=== PATIENT | male | born 1950 | race Caucasian/White ===

== ENCOUNTER 2016-11-22 18:58 | Inpatient (IN) | payer OTHER ==
--- NOTE | 2016-11-22 19:19 | CPEKG ---
Heart Rate: 114 RR Interval: 526 P-R Interval: 144 QRSD Interval: 108 QT Interval: 328 QTC Interval: 452 P Java: 83 QRS Java: 109 T Wave Java: -59 EKG Severity - ABNORMAL ECG - EKG Impression: SINUS TACHYCARDIA EKG Impression: LEFT ATRIAL ABNORMALITY EKG Impression: RVH WITH SECONDARY REPOLARIZATION ABNORMALITY Electronically Signed By: Jonas Comer 23-Nov-2016 09:04:21
--- NOTE | 2016-11-22 19:20 | EDPHY ---
H & P Stated Complaint: SOB, hypoxia, sent from Dr office Time Seen by Provider: 11/22/16 19:10 HPI/ROS: CHIEF COMPLAINT: respiratory distress HISTORY OF PRESENT ILLNESS: 66-year-old male presents emergency department sent from his doctor's office with room air oxygen saturations of 67%. Patient reports a 10 day history of nasal congestion, sore throat, cough and fevers. Patient has a history of COPD, diabetes, hypertension, coronary artery disease and pulmonary hypertension. Today he had a nurse come to his house for a yearly [facility] visit, she insisted he go see his primary care doctor, he went to his doctor who then sent him to the emergency department. Patient denies chest pain, he reports shortness of breath. He denies any sick contacts , he denies abdominal pain or diarrhea. No urinary symptoms. REVIEW OF SYSTEMS: A comprehensive 10 point review of systems is otherwise negative aside from elements mentioned in the history of present illness. Source: Patient, Family Exam Limitations: No limitations - Medical/Surgical History Hx Asthma: No Hx Chronic Respiratory Disease: Yes Hx Diabetes: Yes Hx Cardiac Disease: No Hx Renal Disease: No Hx Cirrhosis: No Hx Alcoholism: No Hx HIV/AIDS: No Hx Splenectomy or Spleen Trauma: No Other PMH: COPD, CRD, HTN, DM, polycythemia, Vit D deficiency - Social History Smoking Status: Former smoker - Physical Exam Exam: Physical Exam Gen: Alert and Oriented, in respiratory distress, tick neck, vital signs reviewed, temperature is 38.3degrees and oxygen saturations on room air 67% HEENT: PERRL, dry mucous membranes NECK: no meningismus CV: Tachycardic rate and regular rhythm PULM: Diminished throughout, increased work of breathing, tachypneic ABDOMEN: soft, non tender to palpation, BS present BACK: No CVA tenderness NEURO: Neurologically grossly intact EXTREMITIES: 2+ pitting edema bilateral lower extremities below the knee SKIN: no rash or break in skin on exposed skin PSYCH: answers questions appropriately. Constitutional: Initial Vital Signs Heart Rate 120 H 11/22/16 19:02 Respiratory Rate 25 H 11/22/16 19:02 Blood Pressure 129/78 H 11/22/16 19:02 O2 Delivery Mode Oxymask O2 (L/minute) 10 Allergies/Adverse Reactions: No Known Allergies Allergy (Unverified 11/22/16 19:02) Home Medications: Medication Instructions Recorded Furosemide [Lasix 20 MG (*)] 20 mg PO DAILY 11/30/15 Hydrochlorothiazide [HCTZ (*)] 25 mg PO DAILY 11/30/15 Ipratropium [Atrovent Hfa (*)] 2 puffs IH QID 11/30/15 Mometasone/Formoterol [Dulera 200 2 puffs IH BID 11/30/15 Mcg/5 Mcg Inhaler] Simvastatin [Zocor] 5 mg PO HS 11/30/15 amLODIPine BESYLATE [Norvasc 5 mg 5 mg PO DAILY 11/30/15 (*)] glipiZIDE [Glipizide] 10 mg PO BIDAC 11/30/15 metFORMIN HCL [Glucophage 500 mg 1,000 mg PO DAILY@18 11/30/15 (*)] Aspirin EC [Aspirin EC 325 mg (*)] 325 mg PO DAILY #0 tab 12/01/15 Prasugrel HCl [Effient 10mg (*)] 10 mg PO DAILY #30 tab 12/01/15 Medical Decision Making - Diagnostics Imaging: Imaging Impressions Chest X-Ray 11/22/16 19:26 Impression: 1. Possible CHF with interstitial pulmonary edema versus chronic progressive interstitial lung disease. ED Course/Re-evaluation: On arrival patient meets sepsis protocol with tachycardia, febrile, low oxygen saturation. IV established, labs obtained including blood cultures, lactate, influenza, EKG and chest x-ray. 1955-Pt declared severe sepsis with bilirubin 2.1. Fluid bolus and antibiotics have been ordered. Respiratory therapy called and will consider BiPAP for increased work of wearing on oxygen, saturations of 86% with simple face mask. Chest x-ray shows possible CHF with interstitial pulmonary edema versus chronic progressive interstitial lung disease. Awaiting BNP. My supervising physician Dr. Yu has seen and assessed this patient. 805pm- RT at bedside. Patient is on Vapotherm tolerating it well, saturations are 92%, he is on 30 L with FiO2 of 80%. 810pm-BNP 4600, normal troponin, 40 mg of Lasix has been ordered. Fluid bolus- discontinued, he received 200 mL of normal saline. Pt admitted to SDU. Patient with a normal lactate, normotensive, he does not have septic shock. Influenza is negative. Work of breathing improved on Vapotherm with RT at bedside. Will consider BiPAP or CPAP if patient does not continue to improve or if he is worse. - Data Points Laboratory Results: Laboratory Results 11/22/16 19:20 11/22/16 19:20 11/22/16 11/22/16 11/22/16 19:40 19:20 19:20 WBC RBC Hgb Hct MCV MCH MCHC RDW Plt Count MPV Neut % (Auto) Lymph % (Auto) [place] % (Auto) Eos % (Auto) Baso % (Auto) Nucleat RBC Rel Count Absolute Neuts (auto) Absolute Lymphs (auto) Absolute Monos (auto) Absolute Eos (auto) Absolute Basos (auto) Absolute Nucleated RBC Immature Gran % Immature Gran # PT INR APTT VBG Lactic Acid Sodium 138 mEq/L mEq/L (134-144) Potassium 4.1 mEq/L mEq/L (3.5-5.2) Chloride 97 mEq/L mEq/L (97-110) Carbon Dioxide 30 mEq/l mEq/l (22-31) Anion Gap 11 mEq/L mEq/L (8-16) BUN 20 mg/dL mg/dL (7-23) Creatinine 0.7 mg/dL mg/dL (0.7-1.3) Estimated GFR > 60 Glucose 140 mg/dL H mg/dL (70-100) Calcium 9.1 mg/dL mg/dL (8.5-10.4) Total Bilirubin 2.1 mg/dL H mg/dL (0.1-1.4) Conjugated Bilirubin 1.0 mg/dL H mg/dL (0.0-0.5) Unconjugated Bilirubin 1.1 mg/dL mg/dL (0.0-1.1) Troponin I 0.014 ng/mL ng/mL (0-0.034) NT-Pro-B Natriuret Pep 4620 pg/mL H pg/mL (0-125) Influenza Typ A,B (DFA) NEGATIVE FOR FLU (NEGATIVE) 11/22/16 11/22/16 11/22/16 19:20 19:20 19:20 WBC 15.87 10^3/uL H 10^3/uL (3.80-9.50) RBC 5.73 10^6/uL 10^6/uL (4.40-6.38) Hgb 16.0 g/dL g/dL (13.7-17.5) Hct 50.3 % % (40.0-51.0) MCV 87.8 fL fL (81.5-99.8) MCH 27.9 pg pg (27.9-34.1) MCHC 31.8 g/dL L g/dL (32.4-36.7) RDW 18.4 % H % (11.5-15.2) Plt Count 383 10^3/uL 10^3/uL (150-400) MPV 11.1 fL fL (8.7-11.7) Neut % (Auto) 88.4 % H % (39.3-74.2) Lymph % (Auto) 3.6 % L % (15.0-45.0) [place] % (Auto) 6.9 % % (4.5-13.0) Eos % (Auto) 0.3 % L % (0.6-7.6) Baso % (Auto) 0.4 % % (0.3-1.7) Nucleat RBC Rel Count 0.0 % % (0.0-0.2) Absolute Neuts (auto) 14.03 10^3/uL H 10^3/uL (1.70-6.50) Absolute Lymphs (auto) 0.57 10^3/uL L 10^3/uL (1.00-3.00) Absolute Monos (auto) 1.09 10^3/uL H 10^3/uL (0.30-0.80) Absolute Eos (auto) 0.05 10^3/uL 10^3/uL (0.03-0.40) Absolute Basos (auto) 0.06 10^3/uL 10^3/uL (0.02-0.10) Absolute Nucleated RBC 0.00 10^3/uL 10^3/uL (0-0.01) Immature Gran % 0.4 % % (0.0-1.1) Immature Gran # 0.07 10^3/uL 10^3/uL (0.00-0.10) PT 30.7 SEC H SEC (12.0-15.0) INR 2.90 H (0.83-1.16) APTT 31.2 SEC SEC (23.0-38.0) VBG Lactic Acid 1.5 mmol/L mmol/L (0.7-2.1) Sodium Potassium Chloride Carbon Dioxide Anion Gap BUN Creatinine Estimated GFR Glucose Calcium Total Bilirubin Conjugated Bilirubin Unconjugated Bilirubin Troponin I NT-Pro-B Natriuret Pep Influenza Typ A,B (DFA) Medications Given: Discontinued Medications Albuterol/Ipratropium (Duoneb) 3 ml IH EDNOW ONE Stop: 11/22/16 19:45 Last Admin: 11/22/16 19:58 Dose: 3 ml Dexamethasone (Decadron Injection) 10 mg IVP EDNOW ONE Stop: 11/22/16 19:52 Last Admin: 11/22/16 20:07 Dose: 10 mg Furosemide (Lasix Injection) 40 mg IVP EDNOW ONE Stop: 11/22/16 20:30 Last Admin: 11/22/16 20:45 Dose: 40 mg Ceftriaxone Sodium/Dextrose (Rocephin 1 Gm (Premix)) 50 mls @ 100 mls/hr IV EDNOW ONE PRN Reason: Protocol Stop: 11/22/16 20:18 Last Admin: 11/22/16 20:00 Dose: 50 mls Levofloxacin/Dextrose (Levaquin 750 Mg (Premix)) 150 mls @ 100 mls/hr IV EDNOW ONE PRN Reason: Protocol Stop: 11/22/16 21:18 Last Admin: 11/22/16 20:44 Dose: 150 mls Ibuprofen (Motrin) 800 mg PO EDNOW ONE Stop: 11/22/16 19:37 Last Admin: 11/22/16 19:35 Dose: 800 mg Departure - Departure Disposition: [facility] Inpatient Acute Clinical Impression: Severe sepsis, Chronic obstructive pulmonary disease with acute exacerbation Condition: Critical
[2016-11-22] MEDS ORDERED: IBUPROFEN 200 MG TAB PO ONE ×2 (19:30→19:36)
[2016-11-22 19:38] LABS: % IMMATURE GRANULYOCYTES 0.4 % (0.0-1.1); ABSOLUTE IMMATURE GRANULOCYTES 0.07 10^3/uL (0.00-0.10); ADD DIFF? NO; ADD MORPH? NO; ADD SCAN? NO; ATYPICAL LYMPHOCYTE FLAG 20 (0-99); FRAGMENT RBC FLAG 20 (0-99); HEMATOCRIT 50.3 % (40.0-51.0); LEFT SHIFT FLG 0 (0-99); LIPEMIA HEMOLYSIS FLAG 80 (0-99); MEAN CELL HEMOGLOBIN 27.9 pg (27.9-34.1); MEAN CELL HEMOGLOBIN CONCENTR. 31.8 g/dL (32.4-36.7); MEAN CELL VOLUME 87.8 fL (81.5-99.8); MEAN PLATELET VOLUME 11.1 fL (8.7-11.7); PLATELET CLUMPS FLAG 0 (0-99); PLATELET COUNT 383 10^3/uL (150-400); RED BLOOD CELL COUNT 5.73 10^6/uL (4.40-6.38); RED CELL DISTRIBUTION WIDTH 18.4 % (11.5-15.2)
[2016-11-22] MEDS ORDERED: IPRATROPIUM/ALBUTEROL 3 ML DEYVIAL IH ONE (19:44)
[2016-11-22] MEDS ORDERED: DEXAMETHASONE 10 MG/ML VIAL IVP ONE (19:51)
[2016-11-22 19:56] LABS: ANION GAP 11 mEq/L (8-16); BILIRUBIN,TOTAL 2.1 mg/dL (0.1-1.4); CALCIUM 9.1 mg/dL (8.5-10.4); CARBON DIOXIDE 30 mEq/l (22-31); CHLORIDE 97 mEq/L (97-110); CREATININE 0.7 mg/dL (0.7-1.3); GLOMERULAR FILTRATION RATE > 60; GLUCOSE 140 mg/dL (70-100); POTASSIUM 4.1 mEq/L (3.5-5.2); SODIUM 138 mEq/L (134-144)
[2016-11-22] MEDS ORDERED: SODIUM CHLORIDE IV ONE (19:57)
[2016-11-22 19:58] LABS: INR 2.9 (0.83-1.16); PROTIME(PATIENT) 30.7 SEC (12.0-15.0)
[2016-11-22 19:59] LABS: APTT 31.2 SEC (23.0-38.0)
[2016-11-22] MEDS ORDERED: NS 1,000 ML IV ONE (20:12)
[2016-11-22] MEDS ORDERED: FUROSEMIDE 40 MG/4 ML VIAL IVP ONE (20:29)
[2016-11-22 20:40] LABS: BILIRUBIN-UNCONJUGATED 1.1 mg/dL (0.0-1.1)
[2016-11-22] MEDS ORDERED: ACETAMINOPHEN 325 MG TAB PO PRN (22:45)
[2016-11-22] MEDS ORDERED: ALBUTEROL 3 ML DEYVIAL IH PRN (22:49)
[2016-11-22] MEDS ORDERED: D50W 25 GM/50 ML SYR IVP PRN (22:50)
--- NOTE | 2016-11-22 23:42 | PDGENHP ---
History and Physical - Chief Complaint shortness of breath, hypoxia - History of Present Illness Patient is a 66-year-old male with a history of COPD, chronic respiratory failure, severe pulmonary hypertension, CAD, diabetes who presents to the ED with complaint of cough and shortness of breath. Patient states symptoms started about 10 days ago with chest congestion, sore throat and cough. The cough progressed over the following days, productive of white sputum, occasionally associated with subjective chills. Denies any associated palpitations, chest pain, headache, dizziness, or any abdominal pain, nausea, vomiting or diarrhea. He was evaluated by his visiting nurse service on day of presentation, was found to be in moderate respiratory distress, so he was referred to his PMD office. At the office, patient was found to be significantly hypoxic (to the 60s on room air), so he was sent to the ED for further evaluation. On arrival to the ED patient was afebrile, tachycardic, tachypneic and hypoxic to 68% on 6L NC. Initial work up was concerning for possible severe sepsis, so patient was cultured and initiated on antibiotics and IVF bolus. Labs then revealed leukocytosis, significantly elevated BNP and CXR showed pulmonary edema. His respiratory status was stabilized with HiFlo nasal cannula and he was given IV lasix. He was then admitted to the hospitalist service for further management. History Information - Allergies/Home Medication List Allergies/Adverse Reactions: No Known Allergies Allergy (Unverified 11/22/16 19:02) Home Medications: Furosemide [Lasix 20 MG (*)] 20 mg PO DAILY 11/30/15 [Last Taken 11/22/16] Hydrochlorothiazide [HCTZ (*)] 25 mg PO DAILY 11/30/15 [Last Taken 11/22/16] Ipratropium [Atrovent Hfa (*)] 2 puffs IH QID 11/30/15 [Last Taken 11/22/16] Mometasone/Formoterol [Dulera 200 Mcg/5 Mcg Inhaler] 2 puffs IH BID 11/30/15 [ Last Taken 11/30/15] Simvastatin [Zocor] 5 mg PO HS 11/30/15 [Last Taken 11/29/15] amLODIPine BESYLATE [Norvasc 5 mg (*)] 5 mg PO DAILY 11/30/15 [Last Taken ] glipiZIDE [Glipizide] 10 mg PO BIDAC 11/30/15 [Last Taken 11/30/15] metFORMIN HCL [Glucophage 500 mg (*)] 1,000 mg PO DAILY@18 11/30/15 [Last Taken 11/29/15] I have personally reviewed and updated: family history, medical history, social history, surgical history - Past Medical History Additional medical history: COPD. Chronic hypoxic respiratory failure, on 6L NC at baseline. Severe pulmonary hypertension. CAD s/p PCI 11/2015. DM2 on oral meds only. HLD - Surgical History Additional surgical history: hernia repair - Family History Additional family history: M: lung ca. F: CHF - Social History Smoking Status: Former smoker (x 30 years, quit 8 years ago) Alcohol Use: Other (3 gin and tonics nightly) Drug Use: None Review of Systems ROS: 10pt was reviewed & negative except for what was stated in HPI & below Physical Exam Temp Pulse Resp BP Pulse Ox 37.6 C 106 H 25 H 102/56 L 96 11/22/16 21:30 11/22/16 22:00 11/22/16 22:00 11/22/16 22:00 11/22/16 22:00 O2 (L/minute) 25 Constitutional: no apparent distress, appears nourished, not in pain Eyes: PERRL, anicteric sclera, EOMI Ears, Nose, Mouth, Throat: moist mucous membranes, hearing normal, ears appear normal, no oral mucosal ulcers Cardiovascular: regular rate and rhythym, no murmur, rub, or gallop, edema ( trace bilateral lower extremity edema), No JVD Peripheral Pulses: 2+: dorsalis-pedis (R), dorsalis-pedis (L) Respiratory: no respiratory distress, reduced air movement, expiratory wheeze Gastrointestinal: normoactive bowel sounds, soft, non-tender abdomen, no palpable masses, No guarding, No rebound, No distension Genitourinary: no bladder fullness, no bladder tenderness Skin: warm, normal color, no rashes or abrasions, no fluctuance, No mottled Musculoskeletal: full muscle strength, no muscle tenderness, normal joint ROM, no joint effusions Neurologic: AAOx3, sensation intact bilaterally, CN II-XII Intact, No weakness, No numbness, No facial droop Psychiatric: interacting appropriately, not anxious, not encephalopathic, thought process linear Lab Data & Imaging Review 11/22/16 19:20 11/22/16 19:20 WBC 15.87 10^3/uL (3.80-9.50) H 11/22/16 19:20 RBC 5.73 10^6/uL (4.40-6.38) 11/22/16 19:20 Hgb 16.0 g/dL (13.7-17.5) 11/22/16 19:20 Hct 50.3 % (40.0-51.0) 11/22/16 19:20 MCV 87.8 fL (81.5-99.8) 11/22/16 19:20 MCH 27.9 pg (27.9-34.1) 11/22/16 19:20 MCHC 31.8 g/dL (32.4-36.7) L 11/22/16 19:20 RDW 18.4 % (11.5-15.2) H 11/22/16 19:20 Plt Count 383 10^3/uL (150-400) 11/22/16 19:20 MPV 11.1 fL (8.7-11.7) 11/22/16 19:20 Neut % (Auto) 88.4 % (39.3-74.2) H 11/22/16 19:20 Lymph % (Auto) 3.6 % (15.0-45.0) L 11/22/16 19:20 [place] % (Auto) 6.9 % (4.5-13.0) 11/22/16 19:20 Eos % (Auto) 0.3 % (0.6-7.6) L 11/22/16 19:20 Baso % (Auto) 0.4 % (0.3-1.7) 11/22/16 19:20 Nucleat RBC Rel Count 0.0 % (0.0-0.2) 11/22/16 19:20 Absolute Neuts (auto) 14.03 10^3/uL (1.70-6.50) H 11/22/16 19:20 Absolute Lymphs (auto) 0.57 10^3/uL (1.00-3.00) L 11/22/16 19:20 Absolute Monos (auto) 1.09 10^3/uL (0.30-0.80) H 11/22/16 19:20 Absolute Eos (auto) 0.05 10^3/uL (0.03-0.40) 11/22/16 19:20 Absolute Basos (auto) 0.06 10^3/uL (0.02-0.10) 11/22/16 19:20 Absolute Nucleated RBC 0.00 10^3/uL (0-0.01) 11/22/16 19:20 Immature Gran % 0.4 % (0.0-1.1) 11/22/16 19:20 Immature Gran # 0.07 10^3/uL (0.00-0.10) 11/22/16 19:20 PT 30.7 SEC (12.0-15.0) H 11/22/16 19:20 INR 2.90 (0.83-1.16) H 11/22/16 19:20 APTT 31.2 SEC (23.0-38.0) 11/22/16 19:20 VBG Lactic Acid 1.5 mmol/L (0.7-2.1) 11/22/16 19:20 Sodium 138 mEq/L (134-144) 11/22/16 19:20 Potassium 4.1 mEq/L (3.5-5.2) 11/22/16 19:20 Chloride 97 mEq/L (97-110) 11/22/16 19:20 Carbon Dioxide 30 mEq/l (22-31) 11/22/16 19:20 Anion Gap 11 mEq/L (8-16) 11/22/16 19:20 BUN 20 mg/dL (7-23) 11/22/16 19:20 Creatinine 0.7 mg/dL (0.7-1.3) 11/22/16 19:20 Estimated GFR > 60 11/22/16 19:20 Glucose 140 mg/dL (70-100) H 11/22/16 19:20 Calcium 9.1 mg/dL (8.5-10.4) 11/22/16 19:20 Total Bilirubin 2.1 mg/dL (0.1-1.4) H 11/22/16 19:20 Conjugated Bilirubin 1.0 mg/dL (0.0-0.5) H 11/22/16 19:20 Unconjugated Bilirubin 1.1 mg/dL (0.0-1.1) 11/22/16 19:20 Troponin I 0.014 ng/mL (0-0.034) 11/22/16 19:20 NT-Pro-B Natriuret Pep 4620 pg/mL (0-125) H 11/22/16 19:20 Influenza Typ A,B (DFA) NEGATIVE FOR FLU (NEGATIVE) 11/22/16 19:40 Visualized and Interpreted Chest x-ray results: Yes Chest X-Ray results: other (diffuse pulmonary edema, chronic interstitial changes) Visualized and Interpreted EKG results: Yes Assessment & Plan Assessment: Patient is a 66 year old male with chronic respiratory failure, COPD, CAD, DM2 , who presents to the ED with complaint of 10 days of upper respiratory symptoms , that progressed to acute on chronic respiratory failure. ED evaluation reveals acute pulmonary edema due to presumed CHF exacerbation. Plan: # acute on chronic hypoxic respiratory failure On presentation, patient was hypoxic to the 60% range on his baseline 6L NC. This hypoxia corrected with HFNC. CXR shows his chronic interstitial lung disease, as well as new diffuse pulmonary vascular congestion. Differential for hypoxia includes acute pulmonary edema/fluid overload, acute COPD exacerbation, pneumonia, acute PE. Given patient meets sepsis criteria on presentation, will treat with antibiotics to cover pneumonia. Will also check TTE and aggressively diuresis, as patient appears volume overloaded on exam. INR is elevated, so low suspicion for PE, but will check D-dimer and assess need for CT angio. Will also provide nebs as needed. # severe sepsis Patient febrile, tachypneic, tachycardic and with leukocytosis on presentation. Flu swab is negative and CXR shows chronic interstitial changes with vascular congestion, no obvious infiltrate. However, given complaint of respiratory symptoms, will treat for severe sepsis given coagulopathy, elevated bilirubin. Will cont ceftriaxone and azithromycin, for presumed community acquired pneumonia. Will also check UA to r/o urinary source. Lactic acid is negative, will continue to trend. # coagulopathy INR/PT is elevated, PTT normal. Patient denies being on any systemic anticoagulation that would cause this. Possibly related to severe sepsis. Will monitor for bleeding and continue to trend. # CAD Patient denies any associated chest pain since symptoms started. EKG shows septal ST depressions, but these are unchanged from 2016 EKGs. Will continue to trend cardiac enzymes and monitor serial EKGs. Will also cont home DAPT therapy. # DM2 Will hold oral meds while inpatient and monitor FS TIDAC, with sliding scale coverage. # dispo: Admit to inpatient service for presumed > 2 [place] stay # gen: Cardiac diet DVT ppx: lovenox Full code
--- NOTE | 2016-11-23 00:42 | CPEKG ---
Heart Rate: 95 RR Interval: 632 P-R Interval: 152 QRSD Interval: 100 QT Interval: 372 QTC Interval: 468 P [place]: 80 QRS [place]: 112 T Wave [place]: -66 EKG Severity - ABNORMAL ECG - EKG Impression: SINUS RHYTHM EKG Impression: ATRIAL PREMATURE COMPLEX EKG Impression: LOW VOLTAGE IN FRONTAL LEADS EKG Impression: RVH WITH SECONDARY REPOLARIZATION ABNORMALITY Electronically Signed By: Jonas Comer 23-Nov-2016 09:04:26
[2016-11-23 03:51] LABS: % IMMATURE GRANULYOCYTES 0.5 % (0.0-1.1); ABSOLUTE IMMATURE GRANULOCYTES 0.06 10^3/uL (0.00-0.10); ADD DIFF? NO; ADD MORPH? NO; ADD SCAN? NO; ATYPICAL LYMPHOCYTE FLAG 10 (0-99); FRAGMENT RBC FLAG 20 (0-99); HEMATOCRIT 48.2 % (40.0-51.0); HEMOGLOBIN 14.9 g/dL (13.7-17.5); LEFT SHIFT FLG 0 (0-99); LIPEMIA HEMOLYSIS FLAG 80 (0-99); MEAN CELL HEMOGLOBIN 27.4 pg (27.9-34.1); MEAN CELL HEMOGLOBIN CONCENTR. 30.9 g/dL (32.4-36.7); MEAN CELL VOLUME 88.8 fL (81.5-99.8); MEAN PLATELET VOLUME 11.5 fL (8.7-11.7); PLATELET CLUMPS FLAG 20 (0-99); PLATELET COUNT 293 10^3/uL (150-400); RED BLOOD CELL COUNT 5.43 10^6/uL (4.40-6.38); RED CELL DISTRIBUTION WIDTH 17.9 % (11.5-15.2)
[2016-11-23 04:00] LABS: INR 1.45 (0.83-1.16); PROTIME(PATIENT) 17.6 SEC (12.0-15.0)
[2016-11-23 04:01] LABS: APTT 31.2 SEC (23.0-38.0)
[2016-11-23 04:06] LABS: ALANINE AMINOTRANSFERASE 33 IU/L (21-72); ALKALINE PHOSPHATASE 228 IU/L (38-126); ANION GAP 11 mEq/L (8-16); ASPARTATE AMINOTRANSFERASE 26 IU/L (17-59); CALCIUM 8.4 mg/dL (8.5-10.4); CARBON DIOXIDE 29 mEq/l (22-31); CHLORIDE 97 mEq/L (97-110); CHOLESTEROL 88 mg/dL (140-220); CHOLESTEROL/HDL RATIO 2.93 RATIO (1.00-4.97); CREATININE 0.8 mg/dL (0.7-1.3); GLOMERULAR FILTRATION RATE > 60; GLUCOSE 301 mg/dL (70-100); HIGH DENSITY LIPOPROTEIN 30 mg/dL (40-65); LDL/HDL RATIO 1.67 RATIO (1.00-3.64); LOW DENSITY LIPOPROTEIN 50 mg/dL (80-100); MAGNESIUM 2.2 mg/dL (1.6-2.3); NON-HIGH DENSITY LIPOPROTEIN 58 mg/dL (90-129); POTASSIUM 3.9 mEq/L (3.5-5.2); SODIUM 137 mEq/L (134-144); TOTAL PROTEIN 6.9 g/dL (6.3-8.2); TRIGLYCERIDE 44 mg/dL (40-150); VERY LOW DENSITY LIPOPROTEINS 8 mg/dL (8-25)
[2016-11-23 04:17] LABS: CREATINE KINASE-MB FRACTION 2.65 ng/mL (0-3.19); TROPONIN I < 0.012 ng/mL (0-0.034)
[2016-11-23] MEDS: IPRATROPIUM/ALBUTEROL 3 ML DEYVIAL IH SCH ×4 (05:52→21:29)
[2016-11-23 05:58] LABS: BASE EXCESS 3.3 mEq/L (-2.5-2.5); BICARBONATE 30 mEq/L (22-26); MEASURED OXYGEN SATURATION 94 % (92-95); PCO2 57 mmHg (34-38); PO2 81 mmHg (65-75); TCO2 32 mEq/L (23-27)
[2016-11-23 06:02] LABS: O2 CONCENTRATIION 100 % (0-100); P/F RATIO 81 RATIO
[2016-11-23] MEDS ORDERED: HYDROCHLOROTHIAZIDE 25 MG TAB PO SCH (09:00)
[2016-11-23] MEDS ORDERED: FORMOTEROL IH SCH (09:00)
[2016-11-23] MEDS ORDERED: ENOXAPARIN 40 MG/0.4 ML SYR SC SCH (09:00)
[2016-11-23] MEDS ORDERED: [UNRECOGNIZED DRUG - OTHER] IH SCH (09:00)
[2016-11-23] MEDS ORDERED: MOMETASONE IH SCH (09:00)
[2016-11-23] MEDS ORDERED: PRAVASTATIN SODIUM 10 MG TAB PO SCH (09:00)
--- NOTE | 2016-11-23 09:00 | CPEKG ---
Heart Rate: 78 RR Interval: 769 P-R Interval: 164 QRSD Interval: 106 QT Interval: 416 QTC Interval: 474 P [place]: 85 QRS [place]: 104 T Wave [place]: -62 EKG Severity - ABNORMAL ECG - EKG Impression: SINUS RHYTHM EKG Impression: RVH WITH SECONDARY REPOLARIZATION ABNORMALITY EKG Impression: ST DEPRESSION IS MORE NOTED ON THIS ECG IN COMPARISON TO PRIOR Electronically Signed By: Jonas Comer 23-Nov-2016 12:49:59
[2016-11-23] MEDS: ASPIRIN EC 325 MG TAB PO SCH (09:07)
[2016-11-23] MEDS: amLODIPine BESYLATE 5 MG TAB PO SCH (09:09)
[2016-11-23] MEDS: INSULIN LISPRO 100 UNIT/ML SC SCH ×3 (09:10→17:52)
[2016-11-23] MEDS: PRASUGREL HCL 10 MG TAB PO SCH (09:13)
[2016-11-23 10:15] LABS: COLOR YELLOW; LEUKOCYTE ESTERASE,URINE NEGATIVE (NEGATIVE); NITRITE,URINE NEGATIVE (NEGATIVE)
[2016-11-23 10:19] LABS: MUCUS 2+ /lpf (NONE-1+)
[2016-11-23 10:34] LABS: HYALINE CASTS 50-182 /lpf (0-1)
[2016-11-23] MEDS: FUROSEMIDE 40 MG/4 ML VIAL IVP SCH ×2 (10:55→15:51)
[2016-11-23] MEDS: AZITHROMYCIN IV 500 MG in D5W 250 ML IV SCH (13:56)
--- NOTE | 2016-11-23 14:06 | ECHO ---
[id number] + + [address] : : [place] [address] : : [phone] + + Adult Echocardiographic Report + --------+ :Name: KRISTIAN JAMES LStudy Date: 11/23/2016 08:07 AM : : Hospital Admission Number: [id number] Locat ion: 252: :: 1950 Gender: Male Height: 69 in : :Age: 66 yrs Race: WH Weight: 205 l b : :Reason For Study: CHF exacerbation : : BSA: 2.1 mete rs2 : + --------+ MMode/2D Measurements \T\ Calculations IVSd: 0.54 cm LVIDd: 3.4 cm EDV(Teich): 48.3 ml Ao root diam: 3.3 cm LVPWd: 0.71 cm LA dimension: 4.1 cm LVOT diam: 1.8 cm LVOT area: 2.5 cm2 Normal Measurement Values: + + :LVIDd (3.5-5.7cm) IVSd (0.6-1.1cm) LVPWd (0.6-1.1cm) Aortic Root (2.0-3.7cm)Left Atrium (1.5-4.0cm): :LV Vol(d) (76-115ml) LV Vol(s) (29-48ml) Ejec Fraction (50-65%)PV Eriberto (0.6- 1.2m/s) TV Eriberto (0.4-1.0m/s) : :MV E Eriberto (0.8-1.0m/s)MV A Eriberto (0.3-1.0m/s)LVOT Eriberto (0.7-1.2m/s) Asc Ao Eriberto ( 0.9-1.8m/s) : + + Doppler Measurements \T\ Calculations MV E max eriberto: Ao mean P.3 mmHgLV V1 mean PG: SV(LVOT): 53.8 cm/sec Ao V2 mean: 1.4 mmHg 43.4 ml MV A max eriberto: 116.9 cm/sec LV V1 mean: 78.5 cm/sec Ao V2 VTI: 30.9 cm 54.9 cm/sec MV E/A: 0.69 LV V1 VTI: 17.4 cm MICHAEL(I,D): 1.4 cm2 TR max eriberto: 357.0 cm/sec TR max P.0 mmHg RAP systole: 20.0 mmHg RVSP(TR): 71.0 mmHg Left Ventricle The left ventricular cavity is small. There is normal left ventricular wall thickness. Left ventricular systolic function is normal. Ejection Fraction = 65-70%. Flattened septum is consistent with RV pressure/volume overload. Right Ventricle The right ventricle is severely dilated. The right ventricular systolic function is moderate to severely reduced. Atria The left atrial size is normal. The right atrium is severely dilated. Mitral Valve There is mild mitral annular calcification. There is no evidence of mitral valve prolapse. There is no mitral valve stenosis. There is trace mitral regurgitation. Tricuspid Valve Normal tricuspid valve. There is moderate tricuspid regurgitation. There is Doppler evidence for moderate pulmonary hypertension. Right ventricular systolic pressure is 71mmHg. Aortic Valve Mild to moderate AV calcification. The aortic valve is not well visualized. There is no aortic stenosis. There is no aortic insufficiency. Pulmonic Valve The pulmonic valve is not well visualized. There is no pulmonic valvular regurgitation. Great Vessels The aortic root is normal size. Pericardium/Pleural There is no pericardial effusion. Conclusion A complete two-dimensional transthoracic echocardiogram was performed (2D, M-mode, Doppler and color flow Doppler). The patient has a dilated IVC. Previous echo done at [facility] 11/19/15. Left ventricular systolic function is normal. Ejection Fraction = 65-70%. The left ventricular cavity is small. Flattened septum is consistent with RV pressure/volume overload. The right ventricle is severely dilated. RV systolic function is moderately to severely reduced The right atrium is severely dilated. There is mild mitral annular calcification. There is trace mitral regurgitation. There is moderate tricuspid regurgitation. There is Doppler evidence for moderate pulmonary hypertension. Right ventricular systolic pressure is 71mmHg. The aortic valve is not well visualized. Mild to moderate AV calcification. No or AR Compared with 11/2015 [facility] echo, RV is more dilated and estimated PA systolic pressures are higher. Final Reading Physician: Dr Tiffany Renteria electronically signed on 11/23/2016 02:04 PM Performed By: Soila Elder RDCS
[2016-11-23] MEDS ORDERED: ALBUTEROL 60 PUFFS/8 GM MDI IH ONE (16:34)
--- NOTE | 2016-11-23 17:03 | HOSPPROG ---
Hospitalist Progress Note Assessment/Plan: * Acute on chronic respiratory failure - baseline 6L -now very high O2 needs * COPD exacerbation -steroids, nebs * Pneumonia with sepsis -ceftriaxone/azithro * Severe pulmonary HTN with right heart failure -discussed ECHO with Dr. Renteria -end stage RV enlargement - prognosis poor - essentially terminal -massive RV dilation impedes function of LV * CHF - acute on chronic diastolic -IV lasix * CAD/stent -Effient * DM II Subjective: still SOB, congested Objective: Vital Signs Temp Pulse Resp BP Pulse Ox 36.6 C 86 17 95/63 L 94 11/23/16 15:47 11/23/16 15:47 11/23/16 15:47 11/23/16 15:47 11/23/16 15:47 Laboratory Results 11/23/16 03:10 11/23/16 03:10 11/22/16 11/23/16 11/24/16 05:59 05:59 05:59 Intake Total 737 Output Total 3 Balance 737 -3 PT 17.6 SEC (12.0-15.0) H D 11/23/16 03:10 INR 1.45 (0.83-1.16) H 11/23/16 03:10 d/w Dr. Arvin Wilcox - suspect pulmonary decompensation more that CHF exac CXR viewed, my personal interpretation is - bilateral infiltrates, CHF vs. PNA - Physical Exam Constitutional: no apparent distress, appears nourished, not in pain Cardiovascular: regular rate and rhythym, no murmur, rub, or gallop Respiratory: no rales or rhonchi, expiratory wheeze, respiratory distress, No inspiratory crackles Gastrointestinal: normoactive bowel sounds, soft, non-tender abdomen, no palpable masses Skin: no rashes or abrasions, no fluctuance, no induration Neurologic: AAOx3, sensation intact bilaterally Psychiatric: interacting appropriately, not anxious, not encephalopathic, thought process linear ICD10 Worksheet Patient Problems: Problems Problem Status Onset Chronic obstructive pulmonary disease with acute exacerbation Acute Severe sepsis Acute
[2016-11-23] MEDS ORDERED: ALBUTEROL 60 PUFFS/8 GM MDI IH SCH (17:15)
[2016-11-23] MEDS ORDERED: ALBUTEROL 60 PUFFS/8 GM MDI IH PRN (17:50)
[2016-11-23] MEDS: glipiZIDE 10 MG TAB PO SCH (17:51)
[2016-11-23] MEDS: methylPREDNISolone SOD SUCC 125 MG/2 ML VIAL IVP SCH ×2 (17:51→23:11)
[2016-11-23] MEDS: PRAVASTATIN SODIUM 10 MG TAB PO SCH (20:09)
--- NOTE | 2016-11-23 20:52 | GCON ---
[f rep st] CONSULTATION PULMONARY CRITICAL CARE CONSULTATION REASON FOR CONSULTATION: Acute on chronic respiratory failure. HISTORY: The patient is a pleasant 66-year-old gentleman who is known to me from the office. He urrutia s severe underlying chronic obstructive pulmonary disease. He is on chronic oxygen at home at 4-6 L . He has been having increasing difficulties over the last 10 days or so. He was seen urgently by his primary care physician yesterday and sent to the emergency department as he was significantly dy spneic, hypoxemic and ill. In the emergency department, saturations were approximately 70% on his u sual 6 L of oxygen. He is tachypneic and tachycardic. Chest x-ray showed some possible mild patchy infiltrates. He was felt to be in congestive heart failure. He does have a known history of sever e right ventricular dysfunction and secondary pulmonary hypertension with pulmonary artery pressures of 80 and a markedly dilated right ventricle. He was placed on a Vapotherm cannula, given bronchod ilator treatments and Lasix, and admitted to the intensive care unit. He did not require BiPAP. PAST MEDICAL HISTORY: Remarkable for severe COPD/emphysema, type 2 diabetes, systemic hypertension and coronary disease. He is on chronic oxygen at home, not on chronic steroids. Inhaled medications include Atrovent, Dulera, and I believe he has a nebulizer at home but has not b een using this. HOME MEDICATIONS: Include inhalers as outlined above, Zocor, hydrochlorothiazide, Lasix, aspirin, m etformin, glipizide, amlodipine and Effient. DRUG ALLERGIES: None known. He is allergic to tape. I do not know what kind of tape. SOCIAL HISTORY: He lives alone. He quit smoking a number of years ago, smoked for over 30 years, 1 pack per day. He does drink several drinks nightly. FAMILY HISTORY: Lung cancer and congestive heart failure. REVIEW OF SYSTEMS: He denies previously known thromboembolic disease. Heart disease and lung disea se as outlined above. He has no abdominal complaints but is not particularly hungry, especially in the last few days as his breathing problems have worsened. He has a history of pulmonary nodules an d adenopathy with a negative bronchoscopy by myself within the last year. I do not believe he has h ad a followup CT scan since then, but will check. PHYSICAL EXAMINATION: GENERAL: Reveals a pleasant man who is sitting up in a chair. He is dyspnei c at rest but not tight or using much in the way of accessory musculature. VITAL SIGNS: Blood pres sure is approximately 100/60. Heart rate 80 with sinus rhythm on the monitor. Respiratory rate is 20. On a Vapotherm cannula saturations are 94%. He is afebrile. HEENT: Unremarkable for lymphade nopathy or thyromegaly. Mucous membranes are somewhat dry. There is jugular venous distention. CH EST: Reveals decreased breath sounds bilaterally with prolonged expiratory phase, a few nonspecific rales, right greater the left, and scattered expiratory wheezes. With cough, there is central stacie estion. Heart tones are somewhat distant. The rhythm is regular. There is a systolic murmur. A r ight-sided gallop is appreciated. P2 is increased. ABDOMEN: Mildly distended, soft, nontender. B owel sounds are present. EXTREMITIES: Remarkable for 1+ edema. NEUROLOGIC: Examination is intact . He moves all extremities equally and reports normal sensation. Cognition is intact. DATABASE: Chest x-ray shows marked hyperinflation with interstitial markings present bilaterally wi th some patchy possible infiltrates, right greater than left. There is no apparent adenopathy. Hea rt size is moderate. There are no pleural effusions. LABORATORY: An arterial blood gas drawn this morning shows a pH of 7.34, pCO2 of 57, and pO2 of 81 on the Vapotherm mask with high-flow oxygen. Saturations were 94%. White blood cell count is 11,00 0, hematocrit 48. Platelets are normal. Sodium is 137, potassium 3.9, CO2 30, BUN 28, with creatin ine 0.8. Glucoses have been elevated between approximately 200 and 300. Phosphorus and magnesium a re normal, liver function studies normal. Albumin is 3.0. TSH is normal. Urinalysis on admission was unremarkable. Influenza A, B by DFA was negative. A respiratory viral panel is pending. ASSESSMENT: 1. Severe underlying chronic obstructive pulmonary disease/emphysema. 2. Exacerbation of chronic obstructive pulmonary disease secondary to bronchopneumonia. This appea rs to be associated with increased infiltrates, possibly representing atypical pneumonia and/or a co mponent of congestive heart failure. Antibiotics have been started (ceftriaxone and azithromycin). He is being given bronchodilator treatments but these will be adjusted. Solu-Medrol will be given. He received dexamethasone in the emergency department. 3. Severe pulmonary hypertension and right heart dysfunction. This has been present for a number o f years. It will be important to maintain good volume status for adequate preload. Lasix diuresis will be continued, however, this needs to be given judiciously. 4. Metabolic: No significant issues identified. Blood glucoses are on the high side in part secon dixon to this acute illness and in part secondary to steroids. Glipizide will be continued. Insulin by sliding scale coverage may be needed. PLAN AND RECOMMENDATIONS: The patient will be kept in the intensive care unit. Inhaled therapies w ill be adjusted. Solu-Medrol will be given. Antibiotics will be continued. Bronchopulmonary hygie ne will be maintained. Lasix diuresis will be continued as blood pressure and filling pressures per cullen. Laboratory and chest x-ray will be followed. Further plans and recommendations will be made based on his progress over the next 12-24 hours. /[id number]/MODL
[2016-11-23] MEDS ORDERED: IPRATROPIUM HFA INHALER IH SCH ×2 (21:00)
[2016-11-23] MEDS: MOMETASONE IH SCH (21:33)
[2016-11-23] MEDS: FORMOTEROL IH SCH (21:33)
[2016-11-23] MEDS: [UNRECOGNIZED DRUG - OTHER] IH SCH (21:33)
[2016-11-24] MEDS: IPRATROPIUM/ALBUTEROL 3 ML DEYVIAL IH SCH ×4 (05:41→20:20)
[2016-11-24] MEDS: methylPREDNISolone SOD SUCC 125 MG/2 ML VIAL IVP SCH ×3 (05:55→21:12)
[2016-11-24 06:22] LABS: % IMMATURE GRANULYOCYTES 0.6 % (0.0-1.1); ABSOLUTE IMMATURE GRANULOCYTES 0.08 10^3/uL (0.00-0.10); ADD DIFF? NO; ADD MORPH? NO; ADD SCAN? NO; ATYPICAL LYMPHOCYTE FLAG 0 (0-99); FRAGMENT RBC FLAG 20 (0-99); HEMATOCRIT 44.8 % (40.0-51.0); HEMOGLOBIN 14.1 g/dL (13.7-17.5); LEFT SHIFT FLG 0 (0-99); LIPEMIA HEMOLYSIS FLAG 80 (0-99); MEAN CELL HEMOGLOBIN 27.7 pg (27.9-34.1); MEAN CELL HEMOGLOBIN CONCENTR. 31.5 g/dL (32.4-36.7); MEAN PLATELET VOLUME 11.4 fL (8.7-11.7); PLATELET CLUMPS FLAG 0 (0-99); PLATELET COUNT 316 10^3/uL (150-400); RED BLOOD CELL COUNT 5.09 10^6/uL (4.40-6.38); RED CELL DISTRIBUTION WIDTH 17.2 % (11.5-15.2)
[2016-11-24 07:09] LABS: ANION GAP 9 mEq/L (8-16); CALCIUM 8.3 mg/dL (8.5-10.4); CARBON DIOXIDE 33 mEq/l (22-31); CHLORIDE 98 mEq/L (97-110); CREATININE 0.7 mg/dL (0.7-1.3); GLOMERULAR FILTRATION RATE > 60; GLUCOSE 213 mg/dL (70-100); POTASSIUM 3.6 mEq/L (3.5-5.2); SODIUM 140 mEq/L (134-144)
[2016-11-24] MEDS: AZITHROMYCIN IV 500 MG in D5W 250 ML IV SCH (08:01)
[2016-11-24] MEDS: INSULIN LISPRO 100 UNIT/ML SC SCH ×3 (08:01→18:03)
[2016-11-24] MEDS: ENOXAPARIN 40 MG/0.4 ML SYR SC SCH (08:02)
[2016-11-24] MEDS: FUROSEMIDE 40 MG/4 ML VIAL IVP SCH ×2 (08:02→14:20)
[2016-11-24] MEDS: glipiZIDE 10 MG TAB PO SCH ×2 (08:03→18:01)
[2016-11-24] MEDS: ASPIRIN EC 325 MG TAB PO SCH (08:03)
[2016-11-24] MEDS: PRASUGREL HCL 10 MG TAB PO SCH (08:03)
[2016-11-24] MEDS: amLODIPine BESYLATE 5 MG TAB PO SCH (08:03)
[2016-11-24] MEDS: MOMETASONE IH SCH ×2 (11:05→20:20)
[2016-11-24] MEDS: [UNRECOGNIZED DRUG - OTHER] IH SCH ×2 (11:05→20:20)
[2016-11-24] MEDS: FORMOTEROL IH SCH ×2 (11:05→20:20)
--- NOTE | 2016-11-24 14:05 | PDINTPN ---
Warehouse Traffic Supervisor Progress Note Assessment/Plan: Assessment: Severe underlying COPD and emphysema. COPD exacerbation secondary to broncho-pneumonia. On antibiotics, bronchodilators, steroids. Cor pulmonale, secondary to 1. Does have fluid retention. Diuresing. Blood pressure is acceptable. Right heart filling okay. Hyperglycemia: On orals, insulin sliding scale coverage. Glucoses remain high secondary to steroids. DVT prophylaxis: Enoxaparin History coronary artery disease: Stable. GI prophylaxis: Eating. Plan: Continue care in the intensive care unit. Continue antibiotics, bronchodilator therapy and steroids. Will begin to decreased the latter. Will add Lantus secondary to increasing blood sugars. Will continue diuresis for now , trying to keep filling pressures adequate. Hold diuretics if blood pressure decreases. Continue therapies otherwise. Increase mobilization as tolerated. PT/OT to see. I anticipate that he will be in the hospital over the weekend and into early next week. Disposition to be determined. He lives at home alone and may have some difficulties initially caring for himself. May need SNF versus home care? Subjective: Overall he feels better. Breathing is about the same. Remains short of breath , on increased oxygen. Still on Vapotherm. Denies chest pain. Able to cough up a small amount of mucus. Objective: Vital Signs Temp Pulse Resp BP Pulse Ox 36.6 C 86 19 101/51 L 93 11/24/16 12:00 11/24/16 12:00 11/24/16 12:00 11/24/16 12:00 11/24/16 12:00 Laboratory Results 11/24/16 06:00 11/24/16 06:00 11/23/16 11/24/16 11/25/16 05:59 05:59 05:59 Intake Total 737 2113 552 Output Total 355 1850 Balance 737 1758 -1298 PT 17.6 SEC (12.0-15.0) H D 11/23/16 03:10 INR 1.45 (0.83-1.16) H 11/23/16 03:10 CXR: Increased infiltrates at right base consistent with probable pneumonia. Laboratory Tests 11/24/16 11/24/16 11/24/16 06:00 07:48 11:54 POC Glucose 203 H > 350 H Calcium 8.3 L 11/24/16 11:59 POC Glucose 345 H Calcium Physical Exam - Physical Exam General Appearance: alert, mild distress (Dyspnea) EENT: PERRL/EOMI, other (Vapotherm in place) Neck: normal inspection (JVD present) Respiratory: decreased breath sounds, rales, wheezing (Scattered wheezes bilaterally, not tight), prolonged expiration, No accessory muscle use, No rhonchi (No jill rhonchi. Central congestion with cough) Cardiac/Chest: regular rate, rhythm Abdomen: normal bowel sounds, non-tender, soft Male Genitalia: other (No Treviño catheter. Good urine output) Skin: warm/dry, pallor Extremities: pedal edema (1+) Neuro/Psych: no motor/sensory deficits, No cognition abnormalities ICD10 Worksheet Patient Problems: Problems Problem Status Onset Severe sepsis Acute Chronic obstructive pulmonary disease with acute exacerbation Acute
[2016-11-24] MEDS ORDERED: LACTULOSE 20 GM/30 ML UDCUP PO PRN (14:14)
[2016-11-24] MEDS ORDERED: POLYETHYLENE GLYCOL 3350 17 GM PKT PO PRN (14:14)
[2016-11-24] MEDS ORDERED: BISACODYL 10 MG SUPP PR PRN (14:14)
[2016-11-24] MEDS ORDERED: MAGNESIUM HYDROXIDE 30 ML UDCUP PO PRN (14:14)
--- NOTE | 2016-11-24 15:16 | HOSPPROG ---
Hospitalist Progress Note Assessment/Plan: * Acute on chronic respiratory failure - baseline 6L -now very high O2 needs * COPD exacerbation -steroids, nebs * Pneumonia with sepsis -ceftriaxone/azithro * Severe pulmonary HTN with right heart failure -end stage RV enlargement - prognosis poor -massive RV dilation impedes function of LV * CHF - acute on chronic diastolic -IV lasix * CAD/stent -Effient * DM II Subjective: no complaints. Objective: Vital Signs Temp Pulse Resp BP Pulse Ox 36.6 C 86 19 101/51 L 93 11/24/16 12:00 11/24/16 12:00 11/24/16 12:00 11/24/16 12:00 11/24/16 12:00 Laboratory Results 11/24/16 06:00 11/24/16 06:00 11/23/16 11/24/16 11/25/16 05:59 05:59 05:59 Intake Total 737 2113 552 Output Total 355 1850 Balance 737 1758 -1298 PT 17.6 SEC (12.0-15.0) H D 11/23/16 03:10 INR 1.45 (0.83-1.16) H 11/23/16 03:10 d/w DR. Arvin Wilcox ICU rounds regarding slow progress and high O2 needs CXR - no change - Physical Exam Constitutional: no apparent distress, appears nourished, not in pain Cardiovascular: regular rate and rhythym, no murmur, rub, or gallop, edema (2+) Respiratory: no respiratory distress, no rales or rhonchi, clear to auscultation Gastrointestinal: normoactive bowel sounds, soft, non-tender abdomen, no palpable masses Skin: no rashes or abrasions, no fluctuance, no induration Neurologic: AAOx3, sensation intact bilaterally Psychiatric: interacting appropriately, not anxious, not encephalopathic, thought process linear ICD10 Worksheet Patient Problems: Problems Problem Status Onset Chronic obstructive pulmonary disease with acute exacerbation Acute Severe sepsis Acute
[2016-11-24] MEDS: INSULIN GLARGINE 100 UNITS/ML SYRINGE SC SCH (21:11)
[2016-11-24] MEDS: SENNOSIDES/DOCUSATE SODIUM TAB PO SCH ×2 (21:11→22:58)
[2016-11-24] MEDS: PRAVASTATIN SODIUM 10 MG TAB PO SCH (21:12)
[2016-11-25] MEDS: IPRATROPIUM/ALBUTEROL 3 ML DEYVIAL IH SCH ×4 (05:07→20:59)
[2016-11-25 05:42] LABS: % IMMATURE GRANULYOCYTES 0.6 % (0.0-1.1); ADD DIFF? NO; ADD MORPH? NO; ADD SCAN? NO; ATYPICAL LYMPHOCYTE FLAG 10 (0-99); FRAGMENT RBC FLAG 20 (0-99); HEMATOCRIT 46.4 % (40.0-51.0); HEMOGLOBIN 14.2 g/dL (13.7-17.5); LEFT SHIFT FLG 0 (0-99); LIPEMIA HEMOLYSIS FLAG 80 (0-99); MEAN CELL HEMOGLOBIN CONCENTR. 30.6 g/dL (32.4-36.7); MEAN CELL VOLUME 91.5 fL (81.5-99.8); MEAN PLATELET VOLUME 10.8 fL (8.7-11.7); PLATELET CLUMPS FLAG 0 (0-99); PLATELET COUNT 278 10^3/uL (150-400); RED BLOOD CELL COUNT 5.07 10^6/uL (4.40-6.38); RED CELL DISTRIBUTION WIDTH 17.9 % (11.5-15.2)
[2016-11-25 05:58] LABS: ANION GAP 12 mEq/L (8-16); CALCIUM 8.5 mg/dL (8.5-10.4); CARBON DIOXIDE 27 mEq/l (22-31); CHLORIDE 100 mEq/L (97-110); CREATININE 0.6 mg/dL (0.7-1.3); GLOMERULAR FILTRATION RATE > 60; GLUCOSE 199 mg/dL (70-100); POTASSIUM 3.9 mEq/L (3.5-5.2); SODIUM 139 mEq/L (134-144)
[2016-11-25] MEDS: methylPREDNISolone SOD SUCC 125 MG/2 ML VIAL IVP SCH ×3 (06:06→20:54)
[2016-11-25] MEDS: glipiZIDE 10 MG TAB PO SCH ×2 (08:18→17:37)
[2016-11-25] MEDS: PRASUGREL HCL 10 MG TAB PO SCH (08:18)
[2016-11-25] MEDS: ASPIRIN EC 325 MG TAB PO SCH (08:18)
[2016-11-25] MEDS: amLODIPine BESYLATE 5 MG TAB PO SCH (08:18)
[2016-11-25] MEDS: INSULIN LISPRO 100 UNIT/ML SC SCH ×3 (08:19→17:38)
[2016-11-25] MEDS: ENOXAPARIN 40 MG/0.4 ML SYR SC SCH (08:19)
[2016-11-25] MEDS: FUROSEMIDE 40 MG/4 ML VIAL IVP SCH ×2 (08:20→15:07)
[2016-11-25] MEDS: MOMETASONE IH SCH ×2 (09:23→21:00)
[2016-11-25] MEDS: FORMOTEROL IH SCH ×2 (09:23→21:00)
[2016-11-25] MEDS: AZITHROMYCIN IV 500 MG in D5W 250 ML IV SCH (09:23)
[2016-11-25] MEDS: [UNRECOGNIZED DRUG - OTHER] IH SCH ×2 (09:23→21:00)
[2016-11-25] MEDS: SENNOSIDES/DOCUSATE SODIUM TAB PO SCH ×2 (09:24→20:54)
--- NOTE | 2016-11-25 13:16 | PDINTPN ---
Cigar Tobacco Processing Supervisor Progress Note Assessment/Plan: Assessment: Severe underlying COPD and emphysema. Associated with hypoxemia at home. He uses 6 L continuously. On this saturations will be approximately 90 at rest and in the low 80s with exertional activities. COPD exacerbation secondary to broncho-pneumonia. Admitted 11/22. On antibiotics, bronchodilators, steroids. Cor pulmonale, secondary to 1. Has a very large dilated RV with estimated RV pressures of approximately 80. Present for years. Does have fluid retention. Diuresing. Blood pressure is acceptable. Right heart filling okay. Hyperglycemia: On orals, insulin sliding scale coverage, and Lantus. Glucoses remain high secondary to steroids, better. DVT prophylaxis: Enoxaparin History coronary artery disease: Stable. GI prophylaxis: Eating. Plan: Continue care in the intensive care unit. Continue antibiotics, bronchodilator therapy and steroids. Continue to decreased the latter. Continue insulin by sliding scale, with Lantus. Will continue diuresis for now , trying to keep filling pressures adequate. Hold diuretics if blood pressure decreases. Continue therapies otherwise. Increase mobilization as tolerated. Working with PT/OT. He will be in the hospital over the weekend and into early next week. Disposition to be determined. He lives at home alone and may have some difficulties initially caring for himself. May need SNF versus home care? Subjective: Feels better. Less cough, less mucus. Close to baseline however oxygen requirements remain high. Objective: Vital Signs Temp Pulse Resp BP Pulse Ox 36.8 C 89 17 96/55 L 90 L 11/25/16 11:58 11/25/16 11:58 11/25/16 11:58 11/25/16 11:58 11/25/16 11:58 Laboratory Results 11/25/16 05:35 11/25/16 05:35 11/24/16 11/25/16 11/26/16 05:59 05:59 05:59 Intake Total 2113 1102 Output Total 355 3050 Balance 1758 -1948 PT 17.6 SEC (12.0-15.0) H D 11/23/16 03:10 INR 1.45 (0.83-1.16) H 11/23/16 03:10 Laboratory Tests 11/24/16 06:00 Mycoplasma pneumon IgM NEGATIVE CXR: None today Physical Exam - Physical Exam General Appearance: alert, no apparent distress EENT: PERRL/EOMI, other (On high-flow Vapotherm) Neck: normal inspection (Jugular venous distention is present) Respiratory: lungs clear (Anteriorly), decreased breath sounds (Markedly decreased breath sounds), prolonged expiration, No rales, No rhonchi, No wheezing (No wheezing today) Cardiac/Chest: regular rate, rhythm (Distant heart tones, increased P2, right- sided gallop probably present) Abdomen: normal bowel sounds, non-tender, soft Skin: normal color, warm/dry Lymphatic: no adenopathy Extremities: pedal edema (Trace + to 1+ when he is up sitting.) Neuro/Psych: no motor/sensory deficits (Somewhat weak globally.), oriented x 3, No cognition abnormalities ICD10 Worksheet Patient Problems: Problems Problem Status Onset Severe sepsis Acute Chronic obstructive pulmonary disease with acute exacerbation Acute
--- NOTE | 2016-11-25 14:55 | HOSPPROG ---
Hospitalist Progress Note Assessment/Plan: * Acute on chronic respiratory failure - baseline 6L -weaning O2 down * COPD exacerbation -steroids, nebs * Pneumonia with sepsis -ceftriaxone/azithro * Severe pulmonary HTN with right heart failure -end stage RV enlargement - prognosis poor -massive RV dilation impedes function of LV * CHF - acute on chronic diastolic -IV lasix * CAD/stent -Effient * DM II Subjective: feeling better anxious for discharge Objective: Vital Signs Temp Pulse Resp BP Pulse Ox 36.8 C 89 17 96/55 L 90 L 11/25/16 11:58 11/25/16 11:58 11/25/16 11:58 11/25/16 11:58 11/25/16 11:58 Laboratory Results 11/25/16 05:35 11/25/16 05:35 11/24/16 11/25/16 11/26/16 05:59 05:59 05:59 Intake Total 2113 1102 Output Total 355 3050 Balance 1758 -1948 PT 17.6 SEC (12.0-15.0) H D 11/23/16 03:10 INR 1.45 (0.83-1.16) H 11/23/16 03:10 d/w Arvin GEORGE MD - home O2 goes up to 10L tele reviewed - NSR - Physical Exam Constitutional: no apparent distress, appears nourished, not in pain Cardiovascular: regular rate and rhythym, no murmur, rub, or gallop Respiratory: no respiratory distress, no rales or rhonchi, clear to auscultation Gastrointestinal: normoactive bowel sounds, soft, non-tender abdomen, no palpable masses Skin: no rashes or abrasions, no fluctuance, no induration Neurologic: AAOx3, sensation intact bilaterally Psychiatric: interacting appropriately, not anxious, not encephalopathic, thought process linear ICD10 Worksheet Patient Problems: Problems Problem Status Onset Chronic obstructive pulmonary disease with acute exacerbation Acute Severe sepsis Acute
[2016-11-25] MEDS: PRAVASTATIN SODIUM 10 MG TAB PO SCH (20:54)
[2016-11-25] MEDS: INSULIN GLARGINE 100 UNITS/ML SYRINGE SC SCH (20:54)
[2016-11-26 05:18] LABS: % IMMATURE GRANULYOCYTES 0.5 % (0.0-1.1); ABSOLUTE IMMATURE GRANULOCYTES 0.06 10^3/uL (0.00-0.10); ADD DIFF? NO; ADD MORPH? NO; ADD SCAN? NO; ATYPICAL LYMPHOCYTE FLAG 10 (0-99); FRAGMENT RBC FLAG 20 (0-99); HEMATOCRIT 46.1 % (40.0-51.0); HEMOGLOBIN 14.4 g/dL (13.7-17.5); LEFT SHIFT FLG 0 (0-99); LIPEMIA HEMOLYSIS FLAG 80 (0-99); MEAN CELL HEMOGLOBIN 28.1 pg (27.9-34.1); MEAN CELL HEMOGLOBIN CONCENTR. 31.2 g/dL (32.4-36.7); MEAN PLATELET VOLUME 10.8 fL (8.7-11.7); PLATELET CLUMPS FLAG 0 (0-99); PLATELET COUNT 298 10^3/uL (150-400); RED BLOOD CELL COUNT 5.12 10^6/uL (4.40-6.38); RED CELL DISTRIBUTION WIDTH 17.4 % (11.5-15.2)
[2016-11-26 05:31] LABS: ANION GAP 6 mEq/L (8-16); CALCIUM 8.6 mg/dL (8.5-10.4); CARBON DIOXIDE 36 mEq/l (22-31); CHLORIDE 99 mEq/L (97-110); CREATININE 0.5 mg/dL (0.7-1.3); GLOMERULAR FILTRATION RATE > 60; GLUCOSE 173 mg/dL (70-100); POTASSIUM 3.8 mEq/L (3.5-5.2); SODIUM 141 mEq/L (134-144)
[2016-11-26] MEDS: IPRATROPIUM/ALBUTEROL 3 ML DEYVIAL IH SCH ×4 (05:43→20:36)
[2016-11-26] MEDS: INSULIN LISPRO 100 UNIT/ML SC SCH ×3 (08:24→19:03)
[2016-11-26] MEDS: ASPIRIN EC 325 MG TAB PO SCH (08:25)
[2016-11-26] MEDS: glipiZIDE 10 MG TAB PO SCH ×2 (08:25→19:00)
[2016-11-26] MEDS: amLODIPine BESYLATE 5 MG TAB PO SCH (08:25)
[2016-11-26] MEDS: FUROSEMIDE 40 MG/4 ML VIAL IVP SCH (08:26)
[2016-11-26] MEDS: methylPREDNISolone SOD SUCC 125 MG/2 ML VIAL IVP SCH (08:30)
[2016-11-26] MEDS: PRASUGREL HCL 10 MG TAB PO SCH (08:30)
[2016-11-26] MEDS: AZITHROMYCIN IV 500 MG in D5W 250 ML IV SCH (09:53)
[2016-11-26] MEDS: FORMOTEROL IH SCH ×2 (10:36→20:37)
[2016-11-26] MEDS: [UNRECOGNIZED DRUG - OTHER] IH SCH ×2 (10:36→20:37)
[2016-11-26] MEDS: MOMETASONE IH SCH ×2 (10:36→20:37)
[2016-11-26] MEDS: ENOXAPARIN 40 MG/0.4 ML SYR SC SCH (11:20)
[2016-11-26] MEDS: SENNOSIDES/DOCUSATE SODIUM TAB PO SCH ×2 (12:35→21:08)
--- NOTE | 2016-11-26 12:43 | PDINTPN ---
Bean Sprout Grower Progress Note Assessment/Plan: Assessment: Severe underlying COPD and emphysema. Associated with hypoxemia at home. He uses 6 L continuously. On this saturations will be approximately 90 at rest and in the low 80s with exertional activities. COPD exacerbation secondary to broncho-pneumonia. Admitted 11/22. On antibiotics, bronchodilators, steroids. Improving, but not yet back to baseline Cor pulmonale, secondary to 1. Has a very large dilated RV with estimated RV pressures of approximately 80. Present for years. Does have fluid retention. Diuresing. Blood pressure is acceptable. Right heart filling okay. Hyperglycemia: On orals, insulin sliding scale coverage, and Lantus. Glucoses remain high secondary to steroids, but control is adequate at this point. DVT prophylaxis: Enoxaparin History coronary artery disease: Stable. GI prophylaxis: Eating. Plan: Continue care. Can transfer to a medical-surgical bed. Continue antibiotics, bronchodilator therapy and steroids. Continue to decreased the latter. Continue insulin by sliding scale, with Lantus. Will continue diuresis for now, but keeping right-sided filling pressures adequate. Hold diuretics if blood pressure decreases. Continue therapies otherwise. Increase mobilization as tolerated. Working with PT/OT. I anticipate he will be ready for discharge proximally 2 days from now. He will want return home. He will need home care. I will see him back in the office in approximately 1 week from discharge. Subjective: Doing okay. Not yet at baseline, but close. Congested with cough, more short of breath and more hypoxemic than usual. Anxious however to go home in the next several days if possible. Objective: Vital Signs Temp Pulse Resp BP Pulse Ox 36.5 C 99 18 109/63 89 L 11/26/16 08:00 11/26/16 10:30 11/26/16 10:30 11/26/16 08:25 11/26/16 10:30 Laboratory Results 11/26/16 05:00 11/26/16 05:00 11/25/16 11/26/16 11/27/16 05:59 05:59 05:59 Intake Total 1102 1250 Output Total 3050 1450 Balance -1948 -200 PT 17.6 SEC (12.0-15.0) H D 11/23/16 03:10 INR 1.45 (0.83-1.16) H 11/23/16 03:10 Physical Exam - Physical Exam General Appearance: alert, no apparent distress, other (In chair, no respiratory distress) EENT: other (OxyMask in place at 10 L: Saturations 91%) Neck: normal inspection (No obvious jugular venous distension) Respiratory: lungs clear, decreased breath sounds, prolonged expiration, No rales, No rhonchi (No jill rhonchi. Central congestion is present with cough) Cardiac/Chest: regular rate, rhythm (Distant heart tones), other (Increased P2, probable right-sided gallop) Abdomen: normal bowel sounds, non-tender, soft Back: Normal inspection Skin: normal color, warm/dry Extremities: pedal edema (1 to 2+ lower extremities. Worse the longer he is up in the chair) Neuro/Psych: no motor/sensory deficits, No cognition abnormalities ICD10 Worksheet Patient Problems: Problems Problem Status Onset Severe sepsis Acute Chronic obstructive pulmonary disease with acute exacerbation Acute
--- NOTE | 2016-11-26 13:35 | HOSPPROG ---
Hospitalist Progress Note Assessment/Plan: * Acute on chronic respiratory failure - baseline 6L -weaning O2 down * COPD exacerbation -steroids, nebs * Pneumonia with sepsis -ceftriaxone/azithro * Severe pulmonary HTN with right heart failure -end stage RV enlargement -massive RV dilation impedes function of LV -despite this seems to be quite stable and diuresing well * CHF - acute on chronic diastolic -IV lasix - change to PO * CAD/stent -Effient * DM II -restart metformin Subjective: Feeling much better Objective: Vital Signs Temp Pulse Resp BP Pulse Ox 36.9 C 88 19 98/59 L 91 L 11/26/16 12:00 11/26/16 12:00 11/26/16 12:00 11/26/16 12:00 11/26/16 12:00 Laboratory Results 11/26/16 05:00 11/26/16 05:00 11/25/16 11/26/16 11/27/16 05:59 05:59 05:59 Intake Total 1102 1250 Output Total 3050 1450 Balance -1948 -200 PT 17.6 SEC (12.0-15.0) H D 11/23/16 03:10 INR 1.45 (0.83-1.16) H 11/23/16 03:10 d/w Arvin Wilcox - stabilizing nicely, home in couple days CXR - improving edema vs infiltrate - Physical Exam Constitutional: no apparent distress, appears nourished, not in pain Cardiovascular: regular rate and rhythym, no murmur, rub, or gallop Respiratory: no respiratory distress, no rales or rhonchi, clear to auscultation Gastrointestinal: normoactive bowel sounds, soft, non-tender abdomen, no palpable masses Skin: no rashes or abrasions, no fluctuance, no induration Neurologic: AAOx3, sensation intact bilaterally Psychiatric: interacting appropriately, not anxious, not encephalopathic, thought process linear ICD10 Worksheet Patient Problems: Problems Problem Status Onset Chronic obstructive pulmonary disease with acute exacerbation Acute Severe sepsis Acute
[2016-11-26] MEDS: metFORMIN HCL 500 MG TAB PO SCH (19:02)
[2016-11-26] MEDS: PRAVASTATIN SODIUM 10 MG TAB PO SCH (20:55)
[2016-11-26] MEDS ORDERED: methylPREDNISolone SOD SUCC 125 MG/2 ML VIAL IVP ONE (21:00)
[2016-11-26] MEDS: INSULIN GLARGINE 100 UNITS/ML SYRINGE SC SCH (21:18)
[2016-11-27] MEDS: IPRATROPIUM/ALBUTEROL 3 ML DEYVIAL IH SCH ×4 (05:50→20:43)
--- NOTE | 2016-11-27 08:29 | HOSPPROG ---
Hospitalist Progress Note Assessment/Plan: #Acute on chronic hypoxemic resp failure. Multifactorial with CAP, RHF/LHF. Baseline O2 needs 6L #Acutely decompensated RHF: diuresing well on PO Lasix #COPD exacerbation: Duonebs. Day 3 of steroids #Sepsis: resolved. Due to PNA #CAP: Day 5 abx #Acutely decompensated diastolic HF: CAD, s/p stent #Controlled DM: metformin, glipizide, glargine #CAD: Effient, statin, ASA #Metabolic alkalosis: due to diuresis. Monitor closely #Diet: cardiac #Disp: transfer to [facility] Subjective: "want to go home" Objective: Vital Signs Temp Pulse Resp BP Pulse Ox 36.6 C 81 16 106/63 90 L 11/27/16 07:58 11/27/16 07:58 11/27/16 07:58 11/27/16 07:58 11/27/16 07:58 Laboratory Results 11/26/16 05:00 11/26/16 05:00 11/26/16 11/27/16 11/28/16 05:59 05:59 05:59 Intake Total 1250 500 Output Total 1450 Balance -200 500 PT 17.6 SEC (12.0-15.0) H D 11/23/16 03:10 INR 1.45 (0.83-1.16) H 11/23/16 03:10 - Physical Exam Constitutional: no apparent distress Eyes: PERRL Ears, Nose, Mouth, Throat: moist mucous membranes Cardiovascular: regular rate and rhythym, edema (+3-4 LE edema) Respiratory: reduced air movement Gastrointestinal: normoactive bowel sounds Genitourinary: no bladder fullness Skin: warm Musculoskeletal: full muscle strength, generalized weakness Neurologic: AAOx3 Psychiatric: interacting appropriately ICD10 Worksheet Patient Problems: Problems Problem Status Onset Chronic obstructive pulmonary disease with acute exacerbation Acute Severe sepsis Acute
[2016-11-27] MEDS: ENOXAPARIN 40 MG/0.4 ML SYR SC SCH (08:55)
[2016-11-27] MEDS: PRASUGREL HCL 10 MG TAB PO SCH (08:56)
[2016-11-27] MEDS: amLODIPine BESYLATE 5 MG TAB PO SCH (08:57)
[2016-11-27] MEDS: FUROSEMIDE 40 MG TAB PO SCH (08:57)
[2016-11-27] MEDS: SENNOSIDES/DOCUSATE SODIUM TAB PO SCH ×2 (08:57→22:05)
[2016-11-27] MEDS: INSULIN LISPRO 100 UNIT/ML SC SCH ×3 (08:57→17:53)
[2016-11-27] MEDS: glipiZIDE 10 MG TAB PO SCH ×2 (08:57→19:06)
[2016-11-27] MEDS: ASPIRIN EC 325 MG TAB PO SCH (08:57)
[2016-11-27] MEDS: AZITHROMYCIN 250 MG TAB PO SCH (08:57)
[2016-11-27] MEDS: predniSONE 20 MG TAB PO SCH (08:57)
--- NOTE | 2016-11-27 11:08 | PDINTPN ---
Radiographer Cardiac Catheterization Progress Note Assessment/Plan: Assessment/plan: * Severe underlying COPD and emphysema. Associated with hypoxemia at home for which he uses 6 L per nasal cannula.. On this saturations will be approximately 90 at rest and in the low 80s with exertional activities. -will wean his oxygen as tolerated. * COPD exacerbation secondary to broncho-pneumonia. Admitted 11/22. On antibiotics , bronchodilators, steroids. Improving, but not yet back to baseline * Cor pulmonale, secondary to 1. Has a very large dilated RV with estimated RV pressures of approximately 80. Present for years. Does have fluid retention. Diuresing. Blood pressure is acceptable. Right heart filling okay. * Hyperglycemia: On orals, insulin sliding scale coverage, and Lantus. Glucoses remain high secondary to steroids, but control is adequate at this point. * DVT prophylaxis: Enoxaparin * History coronary artery disease: Stable. * GI prophylaxis: Eating. * Disposition-anticipate patient to be discharged home tomorrow. Will transfer him to med surg today. Subjective: Overall he feels markedly improved. He is out of bed most of the day and is ambulating without difficulty. His appetite is good he denies any chest pain pleuritic-type chest pain or angina equivalent. Anticipate discharge home tomorrow. Objective: Vital Signs Temp Pulse Resp BP Pulse Ox 36.6 C 81 16 106/63 90 L 11/27/16 07:58 11/27/16 07:58 11/27/16 07:58 11/27/16 07:58 11/27/16 07:58 Laboratory Results 11/26/16 05:00 11/26/16 05:00 11/26/16 11/27/16 11/28/16 05:59 05:59 05:59 Intake Total 1250 500 Output Total 1450 Balance -200 500 PT 17.6 SEC (12.0-15.0) H D 11/23/16 03:10 INR 1.45 (0.83-1.16) H 11/23/16 03:10 Physical Exam - Physical Exam General Appearance: alert, no apparent distress EENT: PERRL/EOMI, normal ENT inspection Neck: non-tender, full range of motion, supple, normal inspection Respiratory: chest non-tender, lungs clear, prolonged expiration, other, No accessory muscle use, No wheezing Cardiac/Chest: normal peripheral pulses Peripheral Pulses: 2+: carotid (R), carotid (L), femoral (R), femoral (L), dorsalis-pedis (R), dorsalis-pedis (L) Abdomen: normal bowel sounds, non-tender, soft Male Genitalia: deferred Rectal: deferred Skin: normal color, warm/dry ICD10 Worksheet Patient Problems: Problems Problem Status Onset Chronic obstructive pulmonary disease with acute exacerbation Acute Severe sepsis Acute
[2016-11-27] MEDS: [UNRECOGNIZED DRUG - OTHER] IH SCH ×2 (11:40→20:44)
[2016-11-27] MEDS: FORMOTEROL IH SCH ×2 (11:40→20:44)
[2016-11-27] MEDS: MOMETASONE IH SCH ×2 (11:40→20:44)
[2016-11-27] MEDS: metFORMIN HCL 500 MG TAB PO SCH (18:28)
[2016-11-27] MEDS: PRAVASTATIN SODIUM 10 MG TAB PO SCH (22:25)
[2016-11-27] MEDS: INSULIN GLARGINE 100 UNITS/ML SYRINGE SC SCH (22:26)
[2016-11-28] MEDS: IPRATROPIUM/ALBUTEROL 3 ML DEYVIAL IH SCH ×3 (05:54→16:21)
[2016-11-28 06:17] LABS: CALCIUM 8.8 mg/dL (8.5-10.4); CARBON DIOXIDE 34 mEq/l (22-31); CHLORIDE 100 mEq/L (97-110); CREATININE 0.5 mg/dL (0.7-1.3); GLOMERULAR FILTRATION RATE > 60; GLUCOSE 69 mg/dL (70-100); SODIUM 141 mEq/L (134-144)
[2016-11-28 06:28] LABS: ANION GAP 7 mEq/L (8-16); POTASSIUM 3.5 mEq/L (3.5-5.2)
[2016-11-28] MEDS: glipiZIDE 10 MG TAB PO SCH (08:38)
[2016-11-28] MEDS: MOMETASONE IH SCH (08:40)
[2016-11-28] MEDS: [UNRECOGNIZED DRUG - OTHER] IH SCH (08:40)
[2016-11-28] MEDS: FORMOTEROL IH SCH (08:40)
[2016-11-28 08:49] VITALS: RESP 20
[2016-11-28] MEDS: PRASUGREL HCL 10 MG TAB PO SCH (09:28)
[2016-11-28] MEDS: INSULIN LISPRO 100 UNIT/ML SC SCH ×2 (09:29→11:49)
[2016-11-28 11:11] VITALS: BP 104/62; PULSE 82; TEMP 98
[2016-11-28] MEDS: ENOXAPARIN 40 MG/0.4 ML SYR SC SCH (11:12)
[2016-11-28] MEDS: AZITHROMYCIN 250 MG TAB PO SCH (11:14)
[2016-11-28] MEDS: ASPIRIN EC 325 MG TAB PO SCH (11:14)
[2016-11-28] MEDS: FUROSEMIDE 40 MG TAB PO SCH (11:15)
[2016-11-28] MEDS: amLODIPine BESYLATE 5 MG TAB PO SCH (11:15)
[2016-11-28] MEDS: SENNOSIDES/DOCUSATE SODIUM TAB PO SCH (11:17)
[2016-11-28] MEDS: predniSONE 20 MG TAB PO SCH (11:19)
--- NOTE | 2016-11-28 11:27 | HOSPPROG ---
Hospitalist Progress Note Assessment/Plan: #Acute on chronic hypoxemic resp failure. Multifactorial with CAP, RHF/LHF. Baseline O2 needs 6L #Acutely decompensated RHF: diuresing well on PO Lasix #COPD exacerbation: Duonebs. Day 3 of steroids #Sepsis: resolved. Due to PNA #CAP: completed course of abc #Acutely decompensated diastolic HF: CAD, s/p stent #Controlled DM: metformin, glipizide, glargine #CAD: Effient, statin, ASA #Metabolic alkalosis: due to diuresis. Monitor closely #Diet: cardiac #Disp: DC today Subjective: "Feel great" Less SOB Objective: Vital Signs Temp Pulse Resp BP Pulse Ox 36.6 C 82 20 104/62 92 11/28/16 11:09 11/28/16 11:09 11/28/16 11:09 11/28/16 11:09 11/28/16 11:09 Laboratory Results 11/26/16 05:00 11/28/16 05:22 11/27/16 11/28/16 11/29/16 05:59 05:59 05:59 Intake Total 500 815 Balance 500 815 PT 17.6 SEC (12.0-15.0) H D 11/23/16 03:10 INR 1.45 (0.83-1.16) H 11/23/16 03:10 - Physical Exam Constitutional: no apparent distress, chronically ill appearing Eyes: PERRL Ears, Nose, Mouth, Throat: moist mucous membranes Cardiovascular: regular rate and rhythym Respiratory: reduced air movement (but improved from yesterday), rhonchi Gastrointestinal: normoactive bowel sounds Genitourinary: no bladder fullness Skin: warm Musculoskeletal: full muscle strength Neurologic: AAOx3 Psychiatric: interacting appropriately ICD10 Worksheet Patient Problems: Problems Problem Status Onset Chronic obstructive pulmonary disease with acute exacerbation Acute Severe sepsis Acute
[2016-11-28 11:32] VITALS: O2SAT 91
--- NOTE | 2016-11-28 12:27 | GDS ---
[f rep st] DISCHARGE SUMMARY DISCHARGE DIAGNOSES: 1. Acute on chronic hypoxic respiratory failure. 2. Severe sepsis. 3. Acutely decompensated right heart failure. 4. Chronic obstructive pulmonary disease exacerbation. 5. Community-acquired pneumonia. 6. Controlled diabetes. 7. Hyperglycemia. 8. Coronary artery disease. 9. Metabolic alkalosis. HISTORY OF PRESENT ILLNESS: The patient is a 66-year-old male with a history of COPD, chronic respiratory failure, and severe pulmonary hypertension who presented to the emergency room complaining of cough and shortness of breath for 10 days prior to admission. Symptoms included chest congestion, sore throat , cough. The cough progressed days prior to admission, productive of white sputum. Denied any palpitations, chest pain, headaches or dizziness. He was evaluated by his visiting nurse service on the day of presentation and found to be in moderate respiratory distress. There he was found to be hypoxic to 60s on room air. HOSPITAL COURSE BY PROBLEM: 1. Acute on chronic hypoxemic respiratory failure, multifactorial with community-acquired pneumonia, right heart failure, and pneumonia. Patient is currently on 8 L of oxygen. His baseline is 8. 2. Acutely decompensated right heart failure. He is on Lasix 20 mg a day at home. This was increased here to 40 and will continue the 40 mg at discharge. He is to follow up with Dr. Arvin Wilcox next week. 3. COPD exacerbation. The patient was treated with steroids, DuoNebs and antibiotics. He has completed a course of antibiotics, but will discharge on a few more days of steroids. 4. Community-acquired pneumonia, completed a 5-day course. 5. Acutely decompensated diastolic heart failure. Continue home medications. 6. CAD, history of stents. Home medications, Effient, statin, aspirin. 7. Controlled diabetes, on metformin and glipizide. Glargine and Lispro were added here due to hyperglycemia and steroids, but this should improve once discontinued. Will just send him home on his oral medications. DISPOSITION: Patient is stable for discharge. FOLLOWUP: Follow up with Dr. Arvin Wilcox. I discussed home health care with the patient, but he declined. /[id number]/MODL MTDD
--- NOTE | 2016-11-28 12:49 | SOAPPROG ---
SOAP Progress Note Assessment/Plan: Assessment/plan: * Severe underlying COPD and emphysema. Associated with hypoxemia at home for which he uses 6 L per nasal cannula.. On this saturations will be approximately 90 at rest and in the low 80s with exertional activities. * COPD exacerbation secondary to broncho-pneumonia. Admitted 11/22. On antibiotics , bronchodilators, steroids. Improving, but not yet back to baseline * Cor pulmonale, secondary to 1. Has a very large dilated RV with estimated RV pressures of approximately 80. Present for years. Does have fluid retention. Diuresing. Blood pressure is acceptable. Right heart filling okay. * Hyperglycemia: * DVT prophylaxis: Enoxaparin * History coronary artery disease: Stable. * GI prophylaxis: Eating. * Disposition-home today Subjective: Sitting up reading a book. Denies any chest pain cough or production of sputum. His breathlessness is markedly improved Objective: Vital Signs Temp Pulse Resp BP Pulse Ox 36.6 C 82 20 104/62 91 L 11/28/16 11:09 11/28/16 11:28 11/28/16 11:28 11/28/16 11:09 11/28/16 11:28 Laboratory Results 11/26/16 05:00 11/28/16 05:22 11/27/16 11/28/16 11/29/16 05:59 05:59 05:59 Intake Total 500 815 Balance 500 815 PT 17.6 SEC (12.0-15.0) H D 11/23/16 03:10 INR 1.45 (0.83-1.16) H 11/23/16 03:10 Physical Exam - Physical Exam General Appearance: alert, no apparent distress EENT: PERRL/EOMI, normal ENT inspection, pharynx normal, TMs normal Neck: non-tender, full range of motion, supple, normal inspection Respiratory: decreased breath sounds, prolonged expiration, No respiratory distress Cardiac/Chest: normal peripheral pulses, regular rate, rhythm, systolic murmur Peripheral Pulses: 2+: carotid (R), carotid (L), femoral (R), femoral (L), dorsalis-pedis (R), dorsalis-pedis (L) Abdomen: normal bowel sounds, non-tender, soft Male Genitalia: deferred Rectal: deferred Skin: normal color ICD10 Worksheet Patient Problems: Problems Problem Status Onset Chronic obstructive pulmonary disease with acute exacerbation Acute Severe sepsis Acute
== END 2016-11-28 17:19 | disposition home or self-care (01) | DRG 871 ==
LOC: F2N 21:06 → F3E 11-27 18:01
PROVIDERS: ADMIT Internal Medicine; ATTEND Internal Medicine
DX: A41.9 Sepsis, unspecified organism (principal); R65.20 Severe sepsis without septic shock; J18.9 Pneumonia, unspecified organism; J44.1 Chronic obstructive pulmonary disease with (acute) exacerbation; J96.21 Acute and chronic respiratory failure with hypoxia; I50.43 Acute on chronic combined systolic (congestive) and diastolic (congestive) heart failure; I27.2 Other secondary pulmonary hypertension; I25.10 Atherosclerotic heart disease of native coronary artery without angina pectoris; Z95.5 Presence of coronary angioplasty implant and graft; Z87.891 Personal history of nicotine dependence; Z99.81 Dependence on supplemental oxygen; E11.65 Type 2 diabetes mellitus with hyperglycemia; Z79.4 Long term (current) use of insulin
CPT/HCPCS: 86738-90; 96365; 97116-GP; 97161-GP; 97165-GO; 97530-GO; 97530-GP; 97535-GO; G8978-GP-CI; G8979-GP-CH; G8987-GO-CJ; G8988-GO-CH; J0456; J0696; J1650; J1815; J1956

== ENCOUNTER → 2016-12-22 | Outpatient (CLI) | payer OTHER | LOC: FIMAGING 14:43 | PROVIDERS: ATTEND Internal Medicine Pulmonary Disease | DX: R91.8 Other nonspecific abnormal finding of lung field (principal); J44.9 Chronic obstructive pulmonary disease, unspecified; I70.0 Atherosclerosis of aorta ==

== ENCOUNTER → 2017-05-30 | Outpatient (CLI) | payer OTHER | LOC: CIMAGING 16:20 | PROVIDERS: ATTEND Family Medicine | DX: J43.9 Emphysema, unspecified (principal) | CPT/HCPCS: 71020-PO ==

== ENCOUNTER 2017-07-11 18:09 | Emergency (ER) | payer OTHER ==
--- NOTE | 2017-07-11 19:32 | EDPHY ---
H & P Time Seen by Provider: 07/11/17 18:32 HPI/ROS: This patient was working on a model should P was building the evening before arrival and slipped with Exacto knife causing a laceration to his left index finger. There is moderate bleeding and he applied a bandage at home family realizing today that the wound would likely require sutures. The laceration occurred approximately 60 hours prior to arrival. He reports mild to moderate pain and had moderate bleeding that slowed with direct pressure but has not entirely resolved. He denies any other injuries. He drove himself here by private vehicle for evaluation and treatment. ROS: Neuro: No numbness or tingling. Musculoskeletal: No difficulty moving the affected finger Integumentary: No feeling of foreign body. 5 point ROS is otherwise negative. Smoking Status: Former smoker Physical Exam: Physical Exam Vital signs are normal. General: No acute distress Eyes: Pupils equal and react to light. Extraocular motions are intact. Lungs: No respiratory distress. Cardiac: Brisk capillary refill is intact throughout. Extremities: Atraumatic normal except for left 2nd finger Left 2nd finger: Patient has a 2.5 cm laceration to the distal phalanx of the index finger wound is full-thickness through the skin with subcutaneous tissue evident. No tendon injury. No foreign bodies. Skin: No rash or pallor. Neuro: Alert and oriented x3 with no sensorimotor deficits in the affected finger Constitutional: Initial Vital Signs Temperature (C) 36.4 C 07/11/17 18:22 Heart Rate 85 07/11/17 18:22 Respiratory Rate 22 H 07/11/17 18:22 Blood Pressure 123/67 H 07/11/17 18:22 O2 Delivery Mode Nasal Cannula O2 (L/minute) 8 Allergies/Adverse Reactions: tape Allergy (Uncoded 11/23/16 16:06) Home Medications: Medication Instructions Recorded Ipratropium [Atrovent Hfa (*)] 2 puffs IH QID 11/30/15 Mometasone/Formoterol [Dulera 200 2 puffs IH BID 11/30/15 Mcg/5 Mcg Inhaler] Simvastatin [Zocor] 5 mg PO HS 11/30/15 amLODIPine BESYLATE [Norvasc 5 mg 5 mg PO DAILY 11/30/15 (*)] glipiZIDE [Glipizide] 10 mg PO BIDAC 11/30/15 metFORMIN HCL [Glucophage 500 mg 1,000 mg PO DAILY@18 11/30/15 (*)] Aspirin EC [Aspirin EC 325 mg (*)] 325 mg PO DAILY #0 tab 12/01/15 Prasugrel HCl [Effient 10mg (*)] 10 mg PO DAILY #30 tab 12/01/15 Furosemide [Lasix 20 MG (*)] 40 mg PO DAILY #60 tab 11/28/16 MDM/Departure - MDM Procedures: Digital block: After verbal consent, using a 50 50 mix of 0.5% Marcaine 2% plain lidocaine, 27 gauge needle, chlorhexidine scrub under sterile conditions- 3 injections were administered to the base of the affected finger, 8 mL with good effect. Patient tolerated this well. There were no complications. The wound is 2.5 cm described physical exam The wound was copiously irrigated with saline. The wound was explored for foreign bodies and none were found. The wound was prepped and draped in the normal sterile fashion. The wound was anesthetized using 4 0 Prolene-7 running sutures with good tissue approximation hemostasis cosmesis.. Patient tolerated procedure well. There were no complications. Patient is placed in a tube gauze dressing by our tech and counseled him regarding wound care. ED Course/Re-evaluation: Discussion: Uncomplicated index finger laceration. - Depart Disposition: Home, Routine, Self-Care Clinical Impression: Finger laceration Qualifiers: Encounter type: initial encounter Finger: index finger Damage to nail status: without damage Foreign body presence: without foreign body Laterality: left Qualified Code(s): S61.211A - Laceration without foreign body of left index finger without damage to nail, initial encounter Condition: Good Instructions: Care For Your Stitches (ED) Additional Instructions: Diagnosis: Finger laceration Plan: Keep the wound clean and dry for the next 2 days. Then clean the wound daily with warm soapy water Return for suture removal in 10-12 days Ibuprofen Tylenol for pain as needed. Return sooner if he develops redness, discharge or other concerns for infection Referrals: Geovanna Winters MD [Primary Care Provider] - As per Instructions
[2017-07-11 19:50] VITALS: BP 124/63; PULSE 78; RESP 18; TEMP 98.2; O2SAT 96
== END 2017-07-11 19:48 | disposition home or self-care (01) ==
LOC: CED 18:09
PROC: 0HQGXZZ Repair Left Hand Skin, External Approach (ICD-10-PCS; principal; 2017-07-11)
DX: S61.211A Laceration without foreign body of left index finger without damage to nail, initial encounter (principal); Z79.82 Long term (current) use of aspirin; Z87.891 Personal history of nicotine dependence; W26.0XXA Contact with knife, initial encounter

== ENCOUNTER → 2017-10-05 | Outpatient (CLI) | payer OTHER | LOC: CIMAGING 10:52 | PROVIDERS: ATTEND Family Medicine | DX: S99.921A Unspecified injury of right foot, initial encounter (principal); W22.8XXA Striking against or struck by other objects, initial encounter | CPT/HCPCS: 73630-PO; 93971-PO ==

== ENCOUNTER 2017-11-13 21:42 | Emergency (ER) | payer OTHER ==
[2017-11-13 21:51] VITALS: BP 111/70
[2017-11-13] MEDS ORDERED: LET GEL TOPICAL 1 EA SYR TP ONE ×2 (22:00→22:06)
--- NOTE | 2017-11-13 22:19 | EDPHY ---
H & P Time Seen by Provider: 11/13/17 21:50 HPI/ROS: 67 yo M presents c/o bleeding right foot ulcer, states it started about an hour ago. No fever or chills, no purulent discharge. No foul odor. ros as per hpi general no fever, no chills, no fatigue eyes, no eye redness, no eye dc ent no uri sx, no nasal dc, no sore throat pulm no cough, chronic sob/copd cards no chest pain, no palpitations gi no abd pain, no diarrhea, no n,v gu no dysuria, no hematuria endo no polyuria, no polydipsia neuro no headches no seizures skin bleeding foot ulcer, no rash, no pruritus Past Medical/Surgical History: hypertension, hyperlipidemia copd diabetes foot ulcer Social History: denies alcohol , tobacco, or drug use Smoking Status: Former smoker Physical Exam: elderly appearing M,67, on home oxygen nad, non toxic appearance afebrile at,nc neck supple lungs cta bilat heart rrr abd non dist nabs ext right foot, dressing removed, no active bleeding from ulcer on mid dorsum of foot no visible blood vessel no discoloration of foot Constitutional: Initial Vital Signs Temperature (C) 36.6 C 11/13/17 21:48 Heart Rate 99 11/13/17 21:48 Respiratory Rate 18 11/13/17 21:48 Blood Pressure 111/70 11/13/17 21:48 O2 Sat (%) 80 L 11/13/17 21:48 O2 Delivery Mode Nasal Cannula O2 (L/minute) 8 Allergies/Adverse Reactions: tape Allergy (Uncoded 11/23/16 16:06) Home Medications: Medication Instructions Recorded Ipratropium [Atrovent Hfa (*)] 2 puffs IH QID 11/30/15 Mometasone/Formoterol [Dulera 200 2 puffs IH BID 11/30/15 Mcg/5 Mcg Inhaler] Simvastatin [Zocor] 5 mg PO HS 11/30/15 amLODIPine BESYLATE [Norvasc 5 mg 5 mg PO DAILY 11/30/15 (*)] glipiZIDE [Glipizide] 10 mg PO BIDAC 11/30/15 metFORMIN HCL [Glucophage 500 mg 1,000 mg PO DAILY@18 11/30/15 (*)] Aspirin EC [Aspirin EC 325 mg (*)] 325 mg PO DAILY #0 tab 12/01/15 Prasugrel HCl [Effient 10mg (*)] 10 mg PO DAILY #30 tab 12/01/15 Furosemide [Lasix 20 MG (*)] 40 mg PO DAILY #60 tab 11/28/16 Medical Decision Making ED Course/Re-evaluation: pt seen and evaluated for bleeding foot ulcer not actively bleeding at present but dressings soaked in blood LET applied for 15 minutes, then SNOW, surgicell , mepilex and coban dressing Imp bleeding foot ulcer, no evidence of infection, no vessel erosion visualized plan bleeding controlled pt to follow with wound care at 230 pm tomorrow as originally planned Differential Diagnosis: differential dx considered but not limited to: diabetic foot ulcer- infection, bleeding-erosion into vessel - Data Points Medications Given: Discontinued Medications Tetracaine/Epinephrine/Lidocaine (Let Gel Topical) 1 ea TP EDNOW ONE Stop: 11/13/17 22:07 Last Admin: 11/13/17 22:13 Dose: 1 ea Departure - Departure Disposition: Home, Routine, Self-Care Clinical Impression: Foot ulcer, right Condition: Good Instructions: Diabetic Foot Ulcers (ED) Referrals: Patient,NotPresent [Primary Care Provider] - As per Instructions
== END 2017-11-13 22:26 | disposition home or self-care (01) ==
LOC: CED 21:42
DX: L97.519 Non-pressure chronic ulcer of other part of right foot with unspecified severity (principal); I10 Essential (primary) hypertension; E11.9 Type 2 diabetes mellitus without complications; Z87.891 Personal history of nicotine dependence; Z79.82 Long term (current) use of aspirin; Z79.84 Long term (current) use of oral hypoglycemic drugs

== ENCOUNTER 2017-11-14 21:04 | Inpatient (IN) | payer OTHER ==
[2017-11-14] MEDS ORDERED: NS 500 ML IV ONE (21:48)
[2017-11-14 22:15] LABS: PLATELET COUNT 383 10^3/uL (150-400)
[2017-11-14 22:21] LABS: INR 1.79 (0.83-1.16); PROTIME(PATIENT) 20.4 SEC (12.0-15.0)
--- NOTE | 2017-11-14 22:35 | EDPHY ---
H & P Stated Complaint: c/o bleeding from r foot ulcer, seen for same last night Time Seen by Provider: 11/14/17 21:40 HPI/ROS: This patient presents with significant bleeding from right diabetic foot ulcer. He was seen here last night with apparent mild bleeding that had stopped with pressure dressing at home prior to arrival, treated here with wound care and Surgicel with hemostasis. However this evening he reported heavy bleeding while ambulating at home and presented with 3 large is a blocked PACs full of bloody dressings. He explains that he sustained a minor injury to the dorsum of his right foot on October 03 or so. He presented to his primary care physician-Dr. Cruz jackson about a week later with evidence of localized infection when he describes a"blood blister". He was treated initially with clindamycin without resolution of the wound. Subsequent culture guided him to a 2nd round of antibiotics-Augmentin that he is currently taking with 3 days of 10 left in the course. The patient is on Effient 10 mg daily for coronary artery disease with stent as well as a full baby aspirin daily. He is also on home O2 for severe COPD. ROS: Constitutional: No recent fevers or chills. HEENT: No complaints pulmonary: He reports feeling that he is about his baseline level of dyspnea from his severe COPD on 8 L home O2 nasal cannula that he wears in his mouth. Cardiovascular: He reports no lightheadedness. No chest pain. He states that he saw Dr. Woodard his enrobing machine corder earlier today with new EKG. Unchanged from his baseline. That visit was pre-surgical for impending cataract surgery. GI: No nausea vomiting abdominal pain. : No complaints new line integumentary: No complaints other than the foot Endocrine: No complaints Complete review of symptoms otherwise negative. Source: Patient Exam Limitations: No limitations - Medical/Surgical History PMH: Minor foot injury in mid September to the right foot followed by infected diabetic foot ulcer treated initially with clindamycin without resolution then switched Augmentin part way through that course currently. Hx Asthma: No Hx Chronic Respiratory Disease: Yes Hx Diabetes: Yes Hx Cardiac Disease: No Hx Renal Disease: No Hx Cirrhosis: No Hx Alcoholism: No Hx HIV/AIDS: No Hx Splenectomy or Spleen Trauma: No Other PMH: COPD, CRD, HTN, DM, polycythemia, Vit D deficiency. Coronary artery disease with LAD stent placed in 2016 - Family History Significant Family History: No pertinent family hx - Social History Smoking Status: Former smoker Alcohol Use: None Drug Use: None - Physical Exam Exam: Pleasant 67-year-old male no acute distress Vital signs notable for pulse of 102, systolic pressure 101 and O2 sat 86-93% on his baseline O2. No fever General Appearance: Alert, no distress. Eyes: Pupils equal and round no pallor or injection. ENT, Mouth: Mucous membranes moist. Respiratory: There are no retractions, lungs are clear to auscultation. Cardiovascular: Regular rate and rhythm. No murmur gallop or rub patient has mild pallor. Gastrointestinal: Abdomen is soft and nontender, no masses, bowel sounds normal. Neurological: GCS 15. Skin: Warm and dry, no rashes. Musculoskeletal: Neck is supple nontender. Extremities are symmetrical, full range of motion atraumatic normal except for right foot Right foot: Patient has a 2 cm superficial ft ulcer to the dorsum of the foot without surrounding erythema. No bone exposure. No exposed blood vessels. No active bleeding. Psychiatric: Mood and affect are normal. DIFFERENTIAL DIAGNOSIS: After history and physical exam differential diagnosis was considered for anemia, thrombocytopenia, coagulopathy on Effient and aspirin , osteomyelitis, myocardial ischemia. Constitutional: Initial Vital Signs Temperature (C) 36.8 C 11/14/17 21:15 Heart Rate 102 H 11/14/17 21:15 Respiratory Rate 20 11/14/17 21:15 Blood Pressure 101/60 11/14/17 21:15 O2 Sat (%) 86 L 11/14/17 21:15 O2 Delivery Mode Nasal Cannula O2 (L/minute) 8 Allergies/Adverse Reactions: tape Allergy (Uncoded 11/23/16 16:06) Home Medications: Medication Instructions Recorded Ipratropium [Atrovent Hfa (*)] 2 puffs IH QID 11/30/15 Mometasone/Formoterol [Dulera 200 2 puffs IH BID 11/30/15 Mcg/5 Mcg Inhaler] Simvastatin [Zocor] 5 mg PO HS 11/30/15 amLODIPine BESYLATE [Norvasc 5 mg 5 mg PO DAILY 11/30/15 (*)] glipiZIDE [Glipizide] 10 mg PO BIDAC 11/30/15 metFORMIN HCL [Glucophage 500 mg 1,000 mg PO DAILY@18 11/30/15 (*)] Aspirin EC [Aspirin EC 325 mg (*)] 325 mg PO DAILY #0 tab 12/01/15 Prasugrel HCl [Effient 10mg (*)] 10 mg PO DAILY #30 tab 12/01/15 Furosemide [Lasix 20 MG (*)] 40 mg PO DAILY #60 tab 11/28/16 Medical Decision Making - Diagnostics EKG Interpretation: 12 lead EKG indication dyspnea with history of coronary disease and new onset anemia rule out myocardial ischemia Performed at 10:37 p.m. Sinus rhythm at 86 Intervals: P R of 156, QRS of 106, QTC of 460 [place]: P of 90, QRS of 100, T of -72 ST segments are notable for T-wave inversion and ST depression in V3 through V6 however when compared to a prior EKG dated 11/23/2016 minimal interval difference. He has similar ST abnormalities in the same leads on that prior EKG. Overall assessment sinus rhythm with incomplete right bundle-branch block and T- wave abnormalities in lateral leads. Imaging Results: Two view foot x-rays: Negative for bony erosion or other abnormalities by my interpretation. Imaging: I viewed and interpreted images myself ED Course/Re-evaluation: Patient is placed in a cart with his foot elevated on 2 pillows. We took down his bloody dressing and there is no active bleeding at this time. Cleaned his wound and our tech applied a new dressing. IV is placed and patient is treated with 1 L normal saline bolus Review of labs reveals acute anemia. Patient's baseline hematocrit seizure around 45 knees had hematocrit of 26 today. Platelets are normal, coags reveal mild elevation both PT and PTT. Basic metabolic panel without significant abnormalities. Discussion: Given patient's significant acute anemia associated with his bleeding wound presumably attributable to his coagulopathy comp patient warrants admission for treatment serial H&H checks. At this time he does not appear to have any acute ischemic cardiac events. He seems to have his baseline dyspnea from his significant COPD. While his ESR is elevated, no radiograph evidence of osteomyelitis on plain films. Blood culture is drawn and pending. Given the patient's acute anemia and other comorbidities, he warrants EMS transport to the hospital for his admission to a med surge bed. I discussed this case with Dr. Camacho, hospitalist on-call exam accepts the patient to [facility] for admission - Data Points Laboratory Results: Laboratory Results 11/14/17 22:05 11/14/17 22:05 11/14/17 11/14/17 11/14/17 22:05 22:05 22:05 WBC 11.18 10^3/uL H 10^3/uL (3.80-9.50) RBC 3.42 10^6/uL L 10^6/uL (4.40-6.38) Hgb 7.8 g/dL L g/dL (13.7-17.5) Hct 26.6 % L % (40.0-51.0) MCV 77.8 fL L fL (81.5-99.8) MCH 22.8 pg L pg (27.9-34.1) MCHC 29.3 g/dL L g/dL (32.4-36.7) RDW 18.4 % H % (11.5-15.2) Plt Count 383 10^3/uL 10^3/uL (150-400) MPV 9.9 fL fL (8.7-11.7) Neut % (Auto) 71.2 % % (39.3-74.2) Lymph % (Auto) 12.8 % L % (15.0-45.0) [place] % (Auto) 12.8 % % (4.5-13.0) Eos % (Auto) 2.2 % % (0.6-7.6) Baso % (Auto) 0.7 % % (0.3-1.7) Nucleat RBC Rel Count 0.0 % % (0.0-0.2) Absolute Neuts (auto) 7.96 10^3/uL H 10^3/uL (1.70-6.50) Absolute Lymphs (auto) 1.43 10^3/uL 10^3/uL (1.00-3.00) Absolute Monos (auto) 1.43 10^3/uL H 10^3/uL (0.30-0.80) Absolute Eos (auto) 0.25 10^3/uL 10^3/uL (0.03-0.40) Absolute Basos (auto) 0.08 10^3/uL 10^3/uL (0.02-0.10) Absolute Nucleated RBC 0.00 10^3/uL 10^3/uL (0-0.01) Immature Gran % 0.3 % % (0.0-1.1) Immature Gran # 0.03 10^3/uL 10^3/uL (0.00-0.10) ESR PT 20.4 SEC H SEC (12.0-15.0) INR 1.79 H (0.83-1.16) APTT 60.6 SEC H SEC (23.0-38.0) Sodium 135 mEq/L mEq/L (135-145) Potassium 3.4 mEq/L L mEq/L (3.5-5.2) Chloride 96 mEq/L L mEq/L (97-110) Carbon Dioxide 29 mEq/l mEq/l (22-31) Anion Gap 10 mEq/L mEq/L (8-16) BUN 21 mg/dL mg/dL (7-23) Creatinine 0.9 mg/dL mg/dL (0.7-1.3) Estimated GFR > 60 Glucose 107 mg/dL H mg/dL (70-100) Calcium 8.7 mg/dL mg/dL (8.5-10.4) 11/14/17 21:40 WBC RBC Hgb Hct 26.6 % L % (40.0-51.0) MCV MCH MCHC RDW Plt Count MPV Neut % (Auto) Lymph % (Auto) [place] % (Auto) Eos % (Auto) Baso % (Auto) Nucleat RBC Rel Count Absolute Neuts (auto) Absolute Lymphs (auto) Absolute Monos (auto) Absolute Eos (auto) Absolute Basos (auto) Absolute Nucleated RBC Immature Gran % Immature Gran # ESR 34 MM/HR H MM/HR (0-20) PT INR APTT Sodium Potassium Chloride Carbon Dioxide Anion Gap BUN Creatinine Estimated GFR Glucose Calcium Medications Given: Discontinued Medications Sodium Chloride (Ns) 500 mls @ 0 mls/hr IV ONCE ONE; Wide Open PRN Reason: Protocol Stop: 11/14/17 21:49 Last Admin: 11/14/17 22:00 Dose: 500 mls Departure - Departure Disposition: [facility] Clinical Impression: Anemia due to acute blood loss, Hx of coronary artery disease Diabetic foot ulcer Qualifiers: Diabetic foot ulcer location: midfoot Diabetes mellitus type: type 1 Laterality : right Non-pressure ulcer stage: with fat layer exposed Qualified Code(s): E10.621 - Type 1 diabetes mellitus with foot ulcer; L97.412 - Non-pressure chronic ulcer of right heel and midfoot with fat layer exposed; L97.412 - Non- pressure chronic ulcer of right heel and midfoot with fat layer exposed; L97.412 - Non-pressure chronic ulcer of right heel and midfoot with fat layer exposed; L97.412 - Non-pressure chronic ulcer of right heel and midfoot with fat layer exposed COPD (chronic obstructive pulmonary disease) Qualifiers: COPD type: unspecified COPD Qualified Code(s): J44.9 - Chronic obstructive pulmonary disease, unspecified Condition: Fair Referrals: Geovanna Winters MD [Primary Care Provider] - As per Instructions
[2017-11-14] MEDS ORDERED: ONDANSETRON 4 MG/2 ML VIAL IVP PRN (22:39)
[2017-11-14] MEDS ORDERED: ONDANSETRON DISINTEGRATING 4 MG TAB PO PRN (22:39)
[2017-11-14] MEDS ORDERED: ACETAMINOPHEN 325 MG TAB PO PRN (22:39)
--- NOTE | 2017-11-14 22:39 | CPEKG ---
Heart Rate: 86 RR Interval: 698 P-R Interval: 156 QRSD Interval: 106 QT Interval: 384 QTC Interval: 460 P [place]: 90 QRS [place]: 100 T Wave [place]: -72 EKG Severity - ABNORMAL ECG - EKG Impression: SINUS RHYTHM EKG Impression: INCOMPLETE RIGHT BUNDLE BRANCH BLOCK EKG Impression: NONSPECIFIC T ABNORMALITIES, LATERAL LEADS Electronically Signed By: Elpidio Woodard 14-Nov-2017 23:17:51
--- NOTE | 2017-11-14 23:00 | PDGENHP ---
History and Physical - Chief Complaint Bleeding from foot wound - History of Present Illness 67 yo M w/ NIDDM, CAD, COPD, and CHRF on 8 L/min O2 @ b/l presents with bleeding from R foot wound. Patient has been under treatment for R foot cellulitis since September of this year. He initially dropped an object on his foot and then developed cellulitis about a week later. Since diagnosis he has been on cephalexin, clindamycin, and now amox/clav with inconsistent results. He has now developed bleeding from this chronic R foot wound. This evening he reported heavy bleeding while ambulating. Of note, he is on DAPT after receiving a cardiac stent to LAD in 2015. In the ED his H/H was noted to be 7.8/26 down from a previously normal baseline. History Information - Allergies/Home Medication List Allergies/Adverse Reactions: tape Allergy (Uncoded 11/23/16 16:06) Home Medications: Ipratropium [Atrovent Hfa (*)] 2 puffs IH QID 11/30/15 [Last Taken 11/22/16] Mometasone/Formoterol [Dulera 200 Mcg/5 Mcg Inhaler] 2 puffs IH BID 11/30/15 [ Last Taken 11/30/15] Simvastatin [Zocor] 5 mg PO HS 11/30/15 [Last Taken 11/29/15] amLODIPine BESYLATE [Norvasc 5 mg (*)] 5 mg PO DAILY 11/30/15 [Last Taken ] glipiZIDE [Glipizide] 10 mg PO BIDAC 11/30/15 [Last Taken 11/30/15] metFORMIN HCL [Glucophage 500 mg (*)] 1,000 mg PO DAILY@18 11/30/15 [Last Taken 11/29/15] I have personally reviewed and updated: family history, medical history - Past Medical History Additional medical history: COPD. Chronic hypoxic respiratory failure, on 8L NC at baseline. Severe pulmonary hypertension. CAD s/p PCI 11/2015. DM2 on oral meds only. HLD - Surgical History Additional surgical history: hernia repair - Family History Additional family history: M: lung ca. F: CHF - Social History Smoking Status: Former smoker Review of Systems Review of Systems: ROS: 10pt was reviewed & negative except for what was stated in HPI & below Physical Exam Physical Exam: Temp Pulse Resp BP Pulse Ox 36.8 C 102 H 20 101/60 86 L 11/14/17 21:15 11/14/17 21:15 11/14/17 21:15 11/14/17 21:15 11/14/17 21:15 Constitutional: no apparent distress, not in pain Eyes: PERRL, EOMI Ears, Nose, Mouth, Throat: moist mucous membranes, no oral mucosal ulcers Cardiovascular: regular rate and rhythym, systolic murmur, edema (2+ b/l DOMI edema) Respiratory: no respiratory distress, clear to auscultation, reduced air movement Gastrointestinal: normoactive bowel sounds, soft, non-tender abdomen Skin: warm, other (Ulcer on dorsal aspect of R foot w/ mild purulent d/c and surround erythema) Musculoskeletal: full muscle strength, no muscle tenderness Neurologic: AAOx3, CN II-XII Intact Psychiatric: interacting appropriately, not anxious Lab Data & Imaging Review 11/14/17 22:05 11/14/17 22:05 WBC 11.18 10^3/uL (3.80-9.50) H 11/14/17 22:05 RBC 3.42 10^6/uL (4.40-6.38) L 11/14/17 22:05 Hgb 7.8 g/dL (13.7-17.5) L 11/14/17 22:05 Hct 26.6 % (40.0-51.0) L 11/14/17 22:05 MCV 77.8 fL (81.5-99.8) L 11/14/17 22:05 MCH 22.8 pg (27.9-34.1) L 11/14/17 22:05 MCHC 29.3 g/dL (32.4-36.7) L 11/14/17 22:05 RDW 18.4 % (11.5-15.2) H 11/14/17 22:05 Plt Count 383 10^3/uL (150-400) 11/14/17 22:05 MPV 9.9 fL (8.7-11.7) 11/14/17 22:05 Neut % (Auto) 71.2 % (39.3-74.2) 11/14/17 22:05 Lymph % (Auto) 12.8 % (15.0-45.0) L 11/14/17 22:05 [place] % (Auto) 12.8 % (4.5-13.0) 11/14/17 22:05 Eos % (Auto) 2.2 % (0.6-7.6) 11/14/17 22:05 Baso % (Auto) 0.7 % (0.3-1.7) 11/14/17 22:05 Nucleat RBC Rel Count 0.0 % (0.0-0.2) 11/14/17 22:05 Absolute Neuts (auto) 7.96 10^3/uL (1.70-6.50) H 11/14/17 22:05 Absolute Lymphs (auto) 1.43 10^3/uL (1.00-3.00) 11/14/17 22:05 Absolute Monos (auto) 1.43 10^3/uL (0.30-0.80) H 11/14/17 22:05 Absolute Eos (auto) 0.25 10^3/uL (0.03-0.40) 11/14/17 22:05 Absolute Basos (auto) 0.08 10^3/uL (0.02-0.10) 11/14/17 22:05 Absolute Nucleated RBC 0.00 10^3/uL (0-0.01) 11/14/17 22:05 Immature Gran % 0.3 % (0.0-1.1) 11/14/17 22:05 Immature Gran # 0.03 10^3/uL (0.00-0.10) 11/14/17 22:05 ESR 34 MM/HR (0-20) H 11/14/17 21:40 PT 20.4 SEC (12.0-15.0) H 11/14/17 22:05 INR 1.79 (0.83-1.16) H 11/14/17 22:05 APTT 60.6 SEC (23.0-38.0) H 11/14/17 22:05 Sodium 135 mEq/L (135-145) 11/14/17 22:05 Potassium 3.4 mEq/L (3.5-5.2) L 11/14/17 22:05 Chloride 96 mEq/L (97-110) L 11/14/17 22:05 Carbon Dioxide 29 mEq/l (22-31) 11/14/17 22:05 Anion Gap 10 mEq/L (8-16) 11/14/17 22:05 BUN 21 mg/dL (7-23) 11/14/17 22:05 Creatinine 0.9 mg/dL (0.7-1.3) 11/14/17 22:05 Estimated GFR > 60 11/14/17 22:05 Glucose 107 mg/dL (70-100) H 11/14/17 22:05 Calcium 8.7 mg/dL (8.5-10.4) 11/14/17 22:05 Visualized and Interpreted EKG results: Yes EKG Interpretation: Positive for: normal sinsus rhythm, other (Nonspecific ST changes in precordial leads, not significantly changed from prior ECGs) Assessment & Plan Assessment: 67 yo M w/ NIDDM, CAD, COPD, and CHRF on 8 L/min O2 @ b/l presents with bleeding from R foot wound and ABLA. Plan: 1. Chronic R foot wound - Patient has been under treatment for R foot cellulitis since September of this year. He has been treated with cephalexin, clindamycin, and now amox/clav with inconsistent results. Persistent symptoms raise suspicion for possible underlying osteomyelitis. WBC modestly elevated but no other signs of sepsis currently. A wound culture was performed on 11/06 and grew Staph pseudo intermedius and Aide albicans. He presents on this occasion with significant bleeding from wound in the setting of DAPT. - Blood cultures, foot XR, ESR/CRP - Will hold further antibiotics for now noting stability and consult ID for guidance - Consider foot MRI if XR inconclusive - Wound care consult placed 2. ABLA - 2/2 bleeding from above in the setting of DAPT. DAPT prescribed for cardiac stents placed in November of 2015. - Will hold anti-platelet agents currently - Can start ASA monotherapy once stable noting >1 year post stenting - Monitor CBC, transfuse if Hgb<7 3. CHRF - On 8 L/min O2 continuously at baseline due to COPD and severe pHTN. Patient is stable on baseline O2 currently. 4. COPD - On Dulera and Atrovent as outpatient as well as continuous O2. No evidence of acute exacerbation currently. - Continue home medications 5. CAD - S/p SALO to LAD on 12/03, will hold DAPT for now in setting of ABLA. Continue statin therapy. 6. NIDDM - On metformin and glipizide as outpatient. Will manage BG w/ SSI while inpatient. 7. dCHF, severe pHTN - On metolazone 2.5 mg qD as well as furosemide 80 mg PO BID as outpatient. Reasonable to hold these in the setting of acute anemia. 8. HTN - On amlodipine, will hold in setting of significant anemia. Diet - Regular Code - Full Ppx - SCDs Dispo - Admit under inpatient status noting need for close H/H monitoring, further diagnostic work-up for R foot wound, and wound care.
[2017-11-15] MEDS ORDERED: D50W 25 GM/50 ML VIAL IVP PRN (00:28)
[2017-11-15 09:03] LABS: PLATELET COUNT 316 10^3/uL (150-400)
[2017-11-15] MEDS: INSULIN LISPRO 100 UNIT/ML SC SCH ×3 (09:19→18:04)
--- NOTE | 2017-11-15 09:35 | ASMTCMCOM ---
CM Note CM Note Notes: Patient admitted for bleeding of a chronic R foot wound. Per H&P, he has been treated with multiple antibiotics for this. He also has a PMH significant for CAD, COPD, HTN, and DMII. Wound care and ID have been consulted. Blood cultures are pending. Patient is normally independent and will likely not have PT/OT needs. If he needs a home stereo equipment installer for wound care and/or IV antibiotics, Case Management will assist. Date Signed: 11/15/2017 09:34 AM Electronically Signed By:Magalis Grier RN
--- NOTE | 2017-11-15 10:34 | PDMN ---
Medical Necessity Medical necessity: Patient meets inpatient criteria per physician note and [facility] [place] M -71 Cellulitis (heavy bleeding from chronic R foot wound, treated with mult antibiotics since 09/2017 with inconsistent results; acute blood loss anemia/H&H 7.8 and 26; on DAPT after stent to LAD on 2015; mult comorbidities including COPD/on 8 LPM O2 baseline, CRF, NIDDM, CAD; anticipated LOS > 2 midnights for further eval and treatment of chronic foot wound including ID consult, concerns for poss underlying osteomyelitis, bleeding in setting of DAPT/close monitoring of H&H.)
--- NOTE | 2017-11-15 12:37 | HOSPPROG ---
Hospitalist Progress Note Assessment/Plan: 67 yo M w cad, dapt, stents 12/03 and dm here w ABLA and bleeding ulcer ABLA: give 2 units bleeding foot ulcer: plain film w no fb or osteomyelitis (interp by me) surgery to see give platelets hold effient cad w stents: has two mid LAD stents placed almost 2 years ago w no intercurrent events ok to hold effient continue asa d/w cardiology proph: bleeding scd's dm: well controlled continue meds Subjective: case d/w dr jesus. stillw sig blood loss Objective: Vital Signs Temp Pulse Resp BP Pulse Ox 36.4 C 84 18 102/61 98 11/15/17 11:18 11/15/17 11:18 11/15/17 11:18 11/15/17 11:18 11/15/17 11:18 Laboratory Results 11/15/17 08:55 11/15/17 08:55 11/14/17 11/15/17 11/16/17 05:59 05:59 05:59 Intake Total 1650 Balance 1650 PT 20.4 SEC (12.0-15.0) H 11/14/17 22:05 INR 1.79 (0.83-1.16) H 11/14/17 22:05 - Physical Exam Constitutional: no apparent distress, appears nourished Eyes: PERRL, anicteric sclera Ears, Nose, Mouth, Throat: moist mucous membranes, hearing normal Cardiovascular: regular rate and rhythym, no murmur, rub, or gallop, No systolic murmur Respiratory: no respiratory distress, no rales or rhonchi Gastrointestinal: normoactive bowel sounds, soft, non-tender abdomen Genitourinary: no bladder fullness, No nascimento in urethra Skin: warm, normal color Musculoskeletal: other (dorsum of foot actively oozing. non pulsatile. no surrounding cellulitis) Neurologic: AAOx3, sensation intact bilaterally Psychiatric: interacting appropriately ICD10 Worksheet Patient Problems: Problems Problem Status Onset Anemia due to acute blood loss Acute COPD (chronic obstructive pulmonary disease) Acute Diabetic foot ulcer Acute Hx of coronary artery disease Acute Chronic obstructive pulmonary disease with acute exacerbation Acute Finger laceration Acute Severe sepsis Acute
--- NOTE | 2017-11-15 13:08 | PDCONSULT ---
Fabrication And Assembly Supervisor Note: 67 y/o male with CAD s/p CAstent placement 2 years ago. Pt remains on dual antiplatlet Rx with Effient and ASA. One month ago he dropped a heavy piece of plywood on the top of his right foot and developed a blood blister. Since then the blister has popped and started oozing blood. He was treated in the ED on Sunday and referred to the wound clinic. He as admitted yesterday with blood loss anemia to the medical service and the surgical service was consulted today due to ongoing bleeding. PMH: COPD/8 lpm O2 at home CAD s/p CAstent placment 2 years ago (Cardiologists [facility]) SH: lives alone in [place] has family in [place] ROS: denies chest pain PE: chronically ill appearing male in NAD O2 at 8 lpm via NC RLE: 1 x 1.5 cm ulcer dorsum of foot with active bleeding from inferior wound edge, easily controlled with pressur central eschar, full thickness +3 pedal edema pulses palpable Imp: R foot dorsal ulcer with central eschar in need of surgical debridement ongoing bleeding from dorsal foot ulcer resulting in blood loss anemia Rec: operative debridement recommended wound consult requested S MD Katie, FACS
[2017-11-15] MEDS: IPRATROPIUM HFA INHALER IH SCH ×3 (15:13→20:57)
[2017-11-15] MEDS ORDERED: LR 1,000 ML IV ONE (15:31)
[2017-11-15] MEDS ORDERED: BACITRACIN ZINC 14.2 GM OINTTUBE TP ONE (16:47)
[2017-11-15] MEDS ORDERED: BUPIVACAINE 0.5% 30 ML SDV ONE (16:47)
--- NOTE | 2017-11-15 16:59 | PDANEPAE ---
ANE History of Present Illness Debridement of foot ulcer, R ANE Past Medical History - Cardiovascular History Hx Arrhythmias: No Hx Coronary Artery / Peripheral Vascular Disease: Yes Hx CHF / Valvular Disease: No Hx Palpitations: No Cardiovascular History Comment: s/p coronary stent 2 years ago, RBBB - Pulmonary History Hx COPD: Yes Hx Recent Upper Respiratory Infection: No Hx Oxygen in Use at Home: Yes O2 in Use at Home (L/minute): 8 Hx Sleep Apnea: No Sleep Apnea Screening Result - Last Documented: Positive Pulmonary History Comment: prior smoking of 1 and 1/2 ppd for 35 years, stopped about 8 years ago. Chronic hypoxia on 8 L/min O2 - Endocrine History Hx Diabetes: Yes Hypothyroid: No Hyperthyroid: No Obesity: mild - Renal History Hx Renal Disorders: No - Neurological & Psychiatric Hx Hx Neurological and Psychiatric Disorders: No - Cancer History Hx Cancer: No - GI History GERD: no Hx Gastrointestinal Disorders: No ANE Review of Systems Review of Systems: - Exercise capacity METS (RN): 3 METS ANE Patient History - Allergies Allergies/Adverse Reactions: tape Allergy (Uncoded 11/23/16 16:06) - Home Medications Home Medications: Ipratropium [Atrovent Hfa (*)] 2 puffs IH QID 11/30/15 [Last Taken 11/14/17 09: 00] Mometasone/Formoterol [Dulera 200 Mcg/5 Mcg Inhaler] 2 puffs IH BID 11/30/15 [ Last Taken 11/14/17 09:00] Simvastatin [Zocor] 5 mg PO HS 11/30/15 [Last Taken 11/13/17] amLODIPine BESYLATE [Norvasc 5 mg (*)] 5 mg PO DAILY 11/30/15 [Last Taken ] glipiZIDE [Glipizide] 10 mg PO BIDAC 11/30/15 [Last Taken 11/14/17 09:00] metFORMIN HCL [Glucophage 500 mg (*)] 1,000 mg PO DAILY18 11/30/15 [Last Taken 11/13/17] Amoxicillin/Clavulanate Pot [Augmentin 875 MG TAB (*)] 875 mg PO BID 11/15/17 [ Last Taken 11/14/17 09:00] Calcitriol [Calcitriol (*)] 0.25 mcg PO NIXON 11/15/17 [Last Taken 11/11/17] Furosemide [Lasix 80 MG (*)] 80 mg PO DAILY 11/15/17 [Last Taken 11/14/17] Metolazone [Zaroxolyn 2.5 mg (RX)] 2.5 mg PO NIXON 11/15/17 [Last Taken 11/11/17] Potassium Cl [Klor-Con 20 meq (*)] 20 meq PO HS 11/15/17 [Last Taken 11/13/17] - NPO status NPO Since - Liquids (Date): 11/15/17 NPO Since - Liquids (Time): 08:30 NPO Since - Solids (Date): 11/15/17 NPO Since - Solids (Time): 08:30 - Smoking Hx Smoking Status: Former smoker - Alcohol Use Alcohol Use: None ANE Labs/Vital Signs - Labs Result Diagrams: 11/15/17 08:55 11/15/17 08:55 - Vital Signs Blood Pressure: 112/71 Heart Rate: 87 Respiratory Rate: 16 O2 Sat (%): 95 Height: 175.26 cm Weight: 88.995 kg ANE Physical Exam - Airway Neck exam: FROM Mallampati Score: Class 2 Mouth exam: dentures - Pulmonary Pulmonary: clear to auscultation, reduced air movement - Cardiovascular Cardiovascular: regular rate and rhythym - ASA Status ASA Status: IV ANE Anesthesia Plan Anesthesia Plan: MAC
--- NOTE | 2017-11-15 17:24 | GCON ---
[f rep st] CONSULTATION CARDIOLOGY CONSULTATION REFERRING PHYSICIAN: Dr. Jonas Beard INDICATION FOR CARDIOLOGY CONSULTATION: Patient with known history of CAD with previous PCI, on dual anti-platelet therapy, with significant anemia due to right foot ulcer bleeding. HISTORY OF PRESENT ILLNESS: The patient is a 67-year-old male, who is known to our practice. He has significant past history that includes COPD with pulmonary hypertension (chronic oxygen therapy); coronary artery disease with previous PCI of the mid proximal LAD with 2 SALO implantation, 11/30/2015; type 2 diabetes; hyperlipidemia; hypertension; and a history of former smoking. Patient reporting mid September dropping a weight on his foot, developing a bruise and ulcerative cellulitis. He had been on antibiotic therapy. He reports multiple antibiotics and has been seeking treatment. He does report that he developed bleeding of the chronic right foot wound, and he noted significant heavy bleeding with ambulation last evening. He came to the emergency department for further evaluation. It was noted upon arrival of having an H and H of 7.8 and 26. He reports no chest pain or pressure. Denies any symptoms suggesting of ischemia. Denies any worsening shortness of breath. Reports no palpitations, lightheadedness, orthopnea, PND, near-syncope, or syncopal events. Does report ongoing peripheral edema of foot, right worse than left. Does report he has been compliant on his medications, which include dual antiplatelet therapy of aspirin and Effient. He has been admitted to the hospital, and he has been started on transfusions. Since hospitalization, he denies any symptoms suggesting ischemia. An electrocardiogram done on hospital admission showing sinus rhythm, with incomplete bundle branch block, nonspecific T-wave abnormalities in lateral leads. PAST MEDICAL HISTORY: 1. CAD with previous PCI with 2 SALO implantations of the LAD, 11/30/2015. 2. Hypertension. 3. Hyperlipidemia. 4. COPD, noninsulin-dependent diabetes. 5. Chronic hypoxia, on 8 L/minute O2. 6. Severe pulmonary hypertension, hyperlipidemia. PAST SURGICAL HISTORY: Includes hernia repair. FAMILY HISTORY: Mother had lung cancer. Father had CHF. SOCIAL HISTORY: The patient is a former smoker. He occasionally uses alcohol. Drinks caffeine occasionally. He is retired. He denies any illicit drug use. ALLERGIES: He is allergic to some tape, but no known drug allergies. HOME MEDICATIONS: Include metolazone 2.5 mg p.o. every Sunday, potassium chloride 20 mEq p.o. h.s., aspirin 325 p.o. daily, Augmentin 875 mg p.o. b.i.d. , Norvasc 5 mg p.o. daily, simvastatin 5 mg p.o. h.s., Effient 10 mg p.o. daily , Dulera inhaler 2 puffs b.i.d., Atrovent 2 puffs q.i.d., Lasix 80 mg p.o. daily , metformin 1000 mg p.o. daily, glipizide 10 mg p.o. b.i.d. a.c. REVIEW OF SYSTEMS: A 10-point review of systems done on this patient. All negative, except as mentioned above. PHYSICAL EXAMINATION: GENERAL: Medium built, well-groomed male, elderly in appearance. Currently appears to be in no acute distress. VITAL SIGNS: Current vital signs are blood pressure of 112/71, heart rate 87 and regular, respirations 16, saturating 95% on 8 L nasal cannula. Temperature of 36.7 degrees Celsius. HEENT: Head is normocephalic. Lips and tongue are pink and moist, with no signs of cyanosis. Conjunctivae pink. NECK: Trachea is midline, +2 carotid pulses bilateral, 4-5 cm of JVD at a 45-degree angle. No auscultated bruits. RESPIRATORY: Lungs are clear, but diminished in bases bilateral. No rhonchi, rales or wheezes. No accessory muscle use. No intercostal muscle retraction noted. CARDIAC: Regular rate, regular rhythm, S1 , S2, a 1-2/6 systolic murmur noted in the left sternal border. ABDOMEN: Soft , nontender, bowel sounds x4 quadrants, no organomegaly, no palpable masses. SKIN: [place], warm, dry, no cyanosis, no clubbing, +2 to 3 peripheral edema, bilateral lower extremities to knees. Dressing, right lower extremity, is clean , dry and intact at the current time. VASCULAR: +2 radials bilateral, +1 posterior tibial pulses bilateral. LABORATORY STUDIES: Current laboratory studies drawn this morning show WBC of 7.95, hemoglobin of 6.7, hematocrit of 23.2, platelet count 316. Sodium 140. Potassium was 3.2 this morning. Chloride 99, CO2 34, BUN 19, creatinine 0.7, glucose 99, calcium 8.2. STUDIES: Electrocardiogram, as mentioned above. Foot x-ray done on admission showing negative for a fracture or radiographic findings suggesting osteomyelitis. The patient's most recent echocardiogram was done on March 07, 2017 in our office, showing normal LV size with diastolic septal flattening suggesting RV pressure overload. EF was estimated at 70%. RV was noted to be severely dilated with mild hypokinesis. LA is normal size. RA is severely dilated. Mild , mild MR, moderate TR, severe pulmonary hypertension with RVSP at 81 mmHg. ASSESSMENT AND PLAN: 1. Coronary artery disease: Patient with known history of coronary artery disease. Denies any chest pain or symptoms suggesting of ischemia. Electrocardiogram did note nonspecific T-wave abnormalities in lateral leads, in comparison to previous electrocardiogram done last year, no significant change. At this time, it has been greater than a year since his last PCI. Would recommend discontinuing his Effient, and with recent anemia, would hold aspirin at current time. Would also recommend, with his history of CAD in the LAD and significant anemia, transfusion to achieve hematocrit greater than or equal to 30. Due to him going for surgery for debridement of his right foot wound, will have him get a baseline troponin level drawn off a.m. labs. Would also recommend that with his cardiac history and with recent significant anemia , that he be placed on continuous cardiac monitoring. Continue secondary risk management statin therapy. 2. Chronic right foot wound. The patient has been seen by Surgery. X-ray showed no osteomyelitis. He is going for debridement this afternoon. Cultures are pending. Wound care consult has also been placed. 3. Anemia: Secondary bleeding to chronic wound in the setting of dual anti- platelet therapy. Have recommended holding both aspirin and discontinuing Effient at this time. Patient is receiving 2 units of packed red blood cells as we speak. Recommendations for hematocrit to be greater than 30 with history of CAD as mentioned above. 4. History of chronic obstructive pulmonary disease with significant pulmonary hypertension: The patient's current diuretic doses are on hold. Would recommend, once stabilized, restarting Lasix therapy. Watch for symptoms of right-sided heart failure. 5. Chronic respiratory failure: Patient continues on baseline oxygen at 8 L of O2. SpO2 greater than 90%, currently stable. 6. Noninsulin diabetes. Patient has been continued on home medications. Thank you; we will be glad to follow along with you. /[id number]/MODL MTDD
[2017-11-15] MEDS ORDERED: PROPOFOL 200 MG/20 ML VIAL ONE (17:27)
[2017-11-15] MEDS ORDERED: MIDAZOLAM 2 MG/2 ML VIAL ONE (17:46)
[2017-11-15] MEDS ORDERED: metFORMIN HCL 500 MG TAB PO SCH (18:00)
[2017-11-15] MEDS: glipiZIDE 10 MG TAB PO SCH (18:05)
[2017-11-15] MEDS ORDERED: NALOXONE HCL 0.4 MG/ML INJ IVP PRN (18:24)
[2017-11-15] MEDS ORDERED: fentaNYL 100 MCG/2 ML INJ IVP PRN (18:24)
--- NOTE | 2017-11-15 19:28 | POSTANESTH ---
Post Anesthetic Evaluation Cardiovascular Status: Similar to Pre-Op Cond Respiratory Status: Similar to Pre-op Cond. Level of Consciousness/Mental Status: Can Participate in Eval Pain Control: Adequate, Prn Tx Ordered Nausea/Vomiting Control: Adequate, Prn Tx Ordered Complications Possibly Related to Anesthesia: None Noted
--- NOTE | 2017-11-15 19:32 | POSTOPPROG ---
Post Op Note Date of Operation: 11/15/17 Surgeon: Ivan Wilson (, FACS) Anesthesiologist: Noble Murray Anesthesia: Other (Specify) (MAC) Pre-op Diagnosis: right dorsal foot ulcer Post-op Diagnosis: same Procedure: debridement of dorsal foot ulcer Findings: full thickness eschar 10 x 15 mm dorsum of foot Inf/Abcess present in the surg proc area at time of surgery?: Yes Depth: Superfical (Skin SQ) EBL: Minimal
--- NOTE | 2017-11-15 20:04 | GOP ---
[f rep st] OPERATIVE REPORT DATE OF OPERATION: 11/15/2017 SURGEON: Ivan Wilson MD, FACS ANESTHESIA: Monitored anesthesia care. ANESTHESIOLOGIST: Noble Murray MD. PREOPERATIVE DIAGNOSIS: 1. Right dorsal foot ulcer with necrotic tissue, full thickness. 2. Blood loss anemia. POSTOPERATIVE DIAGNOSIS: 1. Right dorsal foot ulcer with necrotic tissue, full thickness. 2. Blood loss anemia. PROCEDURE PERFORMED: Debridement of right dorsal foot ulcer. FINDINGS: Approximately 1 x 1.5 cm full-thickness area of necrotic skin and subcutaneous tissues debrided from a dorsal foot ulcer, which had previously bled significantly, such that the patient required multiple blood transfusions prior to surgery. There was no active bleeding at the time of infection and although the wound appeared chronically colonized, there was no evidence of un drained purulence or cellulitis. ESTIMATED BLOOD LOSS: Less than 1 cc. DESCRIPTION OF PROCEDURE: After informed consent was obtained, the patient was brought to the operating room and placed under general anesthesia. The right foot was prepped and draped in usual fashion. Before proceeding, a time-out identification the patient was performed. The dorsum of the foot had a 2 x 2 cm ulcer, within the center of this was a 1 x 1.5 cm area of necrotic skin. The skin around the edges of the ulcer appeared otherwise healthy and without evidence of cellulitis or purulent drainage. The skin circumferential to the ulcer was infiltrated with 0.25% Marcaine plain, and the skin and subcutaneous tissues was debrided down to the base of the ulcer. Hemostasis was secured around the edges with spot cautery. There was no significant active bleeding during the surgery. After the wound was debrided, it was gently irrigated with normal saline. Hemostasis again appeared secure. The wound was dressed with topical Adaptic gauze, bacitracin ointment, and a Mepilex dressing. I did not feel that this wound was sufficient to warrant a wound VAC. Roberto wrap was placed after this. Distal neurovascular exam was intact upon completion. COMPLICATIONS: None. /[id number]/MODL MTDD
[2017-11-15] MEDS: Mometasone/Formoterol [Dulera 200 Mcg/5 Mcg Inhaler] 2 PUFFS IH SCH (20:58)
[2017-11-15] MEDS ORDERED: NON-FORMULARY NEW DRUG (Simvastatin [Zocor] 5 MG) PO SCH (21:00)
[2017-11-15] MEDS: POTASSIUM CL 20 MEQ TAB PO SCH (22:59)
[2017-11-15] MEDS: PRAVASTATIN SODIUM 10 MG TAB PO SCH (22:59)
[2017-11-16] MEDS: IPRATROPIUM HFA INHALER IH SCH ×4 (06:47→21:45)
[2017-11-16] MEDS: glipiZIDE 10 MG TAB PO SCH ×2 (07:51→17:42)
[2017-11-16] MEDS: INSULIN LISPRO 100 UNIT/ML SC SCH ×3 (07:52→17:41)
[2017-11-16] MEDS ORDERED: ASPIRIN EC 325 MG TAB PO SCH (09:00)
[2017-11-16] MEDS: Mometasone/Formoterol [Dulera 200 Mcg/5 Mcg Inhaler] 2 PUFFS IH SCH ×2 (09:25→21:48)
--- NOTE | 2017-11-16 09:55 | ASMTCMCOM ---
CM Note CM Note Notes: Hodan with [facility] calls to report pt is current w [facility] RN. Date Signed: 11/16/2017 09:55 AM Electronically Signed By:SHELDON Henry
--- NOTE | 2017-11-16 11:09 | ASMTCAGE ---
CAGE Do you feel you ought to Answers: Yes cut down on your drinking or drug use? Do people annoy you by Answers: No criticizing your drinking or drug use? Do you feel guilty about Answers: No your drinking or drug use? Do you drink or use drugs Answers: No first thing in the morning ([employer])? Additional Comments Pt does not trigger referrals for treatment and declines resources Date Signed: 11/16/2017 11:08 AM Electronically Signed By:SHELDON Henry
--- NOTE | 2017-11-16 13:07 | PDCARPN ---
Cardiology Progress Note Chief Complaint: Patient reports fatigue, but improvement from yesterday. Assessment/Plan: Assessment: 67-year-old male with known history of COPD pulmonary hypertension (chronic oxygen therapy), coronary artery disease with previous PCI of mid proximal LAD with SALO implantation (11/30/2015), type 2 diabetes, hyperlipidemia, hypertension , and history of former smoker. Admitted 11/14/2017 for chronic right foot wound with significant bleeding, found to have significant anemia while on dual anti-platelet therapy. He denies of any chest pressure or pain since hospitalization. Initial electrocardiogram on admission showing nonspecific T- wave abnormalities in lateral leads, in comparison to previous EKGs no significant change. H&H at its close was 6.7 and 23.2. (11/15/2017 in the a.m.) . Troponin level drawn yesterday morning was less than 0.012. Patient received 2 units of packed red blood cells yesterday morning, taken to OR by Dr. Wilson for wound debridement. Today: Patient reports no chest pain or pressure or symptoms suggesting of ischemia. Reports no worsening in shortness of breath. Continuous cardiac monitoring has showed showed that he has maintained sinus rhythm with no malignant arrhythmias or pauses. Laboratory studies showing an improvement with today's H&H at 8.2 in 27.4. Plan: 1. History of CAD: Patient denies of any chest pain, pressure, or symptoms suggesting of ischemia. Has been greater than a year since his SALO implantation. With recent bleed, Effient has been discontinued. Patient will resume aspirin therapy when cleared by surgery. Recommendation restarting him at 81 mg p.o. q.day. As for the his anemia, due to his significant CAD, would recommend transfusion to hematocrit greater than 30. He remains on secondary risk prevention on pravastatin. 2. Chronic right foot wound: Status post debridement last evening, no further bleeding noted. Dressing clean dry and intact. Postop recommendations per surgery and wound care. 3. Anemia: Secondary to bleeding of chronic wound and dual anti-platelet therapy. Patient received 2 units of packed red blood cells yesterday, with improvement of H&H. Would recommend transfusion to hematocrit of 30 due to history of CAD. 4. History of hypertension: Patient's home dose of amlodipine has not been restarted due to lower blood pressures with bleeding. BP stable at current time. 5. History of chronic COPD with significant pulmonary hypertension: Patient will resume diuretic therapy per hospital services. Patient restarted on home inhalers. 6. Chronic respiratory failure: Patient remains on oxygen at 8 L nasal cannula , SpO2 greater than 90%. 7. Type 2 diabetes: Being followed by hospitalist services. At this time, patient appears to be stable with his cardiac status. We will sign off at this time. I have scheduled the patient to follow up us in the next 2 weeks. Please feel free to contact us with any questions or concerns. 11/16/17 13:04 Subjective: Patient denies of any chest pressure or pain. Reports no worsening in shortness of breath. Denies of any palpitations, lightheadedness, near-syncope , or syncopal events. Reviewed/Discussed With: hospitalist (Dr Hannah), other (Dr Comer) Objective: Vital Signs (8 Hrs) Temp Pulse Resp BP Pulse Ox 11/16/17 11:27 36.7 C 86 21 H 101/57 L 90 L 11/16/17 07:40 36.7 C 79 14 104/62 92 Intake/Output (24 Hrs) 11/15/17 11/16/17 11/17/17 05:59 05:59 05:59 Intake Total 1650 1000 Output Total 335 Balance 1650 665 Intake: Oral (ml) 650 800 IV Intake (ml) 200 IV Infused (ml) 1000 Output: Urine (ml) 325 Urinal 325 Estimated Blood Loss (ml) 10 Other: Weight 88.995 kg 88.995 kg Number of Voids Toilet 1 2 2 Urinal 1 Number of Stools Toilet 1 Result Diagrams: 11/16/17 10:50 11/16/17 10:50 Cardiac Labs: Cardiac Lab Results (72 Hrs) 11/15/17 15:57 Troponin I < 0.012 - Physical Exam Constitutional: WDWN, no apparent distress Ears, Nose, Mouth, Throat: moist mucous membranes Cardiovascular: regular rate and rhythm, no murmurs, no rubs, jugular vein distention (4-5 cm above sternal notch at a 45 degree angle), pulses symmetric bilat, No carotid bruit Peripheral Pulses: 2+: carotid (R), carotid (L) Respiratory: other (Expiratory wheezing, but no rhonchi, rales, accessory muscle use, or intercostal muscle retraction noted.) Gastrointestinal: normoactive bowel sounds Skin: warm, no edema (+1 pedal edema bilateral lower extremities), other ( Dressing to right foot, clean dry and intact) Neurologic: AAOx3 Psychiatric: cooperative, interactive, following commands ICD10 Worksheet Patient Problems: Problems Problem Status Onset Severe sepsis Acute Chronic obstructive pulmonary disease with acute exacerbation Acute Finger laceration Acute Diabetic foot ulcer Acute Anemia due to acute blood loss Acute COPD (chronic obstructive pulmonary disease) Acute Hx of coronary artery disease Acute
--- NOTE | 2017-11-16 13:29 | HOSPPROG ---
Hospitalist Progress Note Assessment/Plan: New pt encounter 67 yo M w cad, dapt, stents 12/03 and dm here w ABLA and bleeding ulcer ABLA: s/p 2 units PRBC. s/p 1 unit platelets. Will give additional PRBC unit today bleeding foot ulcer: plain film w no fb or osteomyelitis s/p Debridement per Dr. Wilson on 11/15 cad w stents: has two mid LAD stents placed almost 2 years ago w no intercurrent events stop effient decrease ASA to 81 mg daily d/w cardiology Pulm HTN, Right sided failure Restart Lasix today Further diuretics tomorrow HTN: hold Amlodipine for now proph: bleeding scd's dm: well controlled continue meds, but stop Metformin cont ISS Dispo: likely d/c tomorrow Subjective: no further bleeding s/p debridement yesterday. H/H still not at goal. Feels less weak. Objective: Vital Signs Temp Pulse Resp BP Pulse Ox 36.7 C 86 21 H 101/57 L 90 L 11/16/17 11:27 11/16/17 11:27 11/16/17 11:27 11/16/17 11:27 11/16/17 11:27 Laboratory Results 11/16/17 10:50 11/16/17 10:50 11/15/17 11/16/17 11/17/17 05:59 05:59 05:59 Intake Total 1650 1000 Output Total 335 Balance 1650 665 PT 20.4 SEC (12.0-15.0) H 11/14/17 22:05 INR 1.79 (0.83-1.16) H 11/14/17 22:05 - Physical Exam Constitutional: no apparent distress Eyes: PERRL Ears, Nose, Mouth, Throat: moist mucous membranes, hearing normal Cardiovascular: regular rate and rhythym, edema (1-2 + LE edema) Respiratory: reduced air movement Gastrointestinal: normoactive bowel sounds Genitourinary: no bladder fullness Skin: warm Neurologic: AAOx3 Psychiatric: interacting appropriately, not anxious, not encephalopathic Lymph, Heme, Immunologic: No petechiae ICD10 Worksheet Patient Problems: Problems Problem Status Onset Anemia due to acute blood loss Acute COPD (chronic obstructive pulmonary disease) Acute Diabetic foot ulcer Acute Hx of coronary artery disease Acute Chronic obstructive pulmonary disease with acute exacerbation Acute Finger laceration Acute Severe sepsis Acute
[2017-11-16] MEDS ORDERED: FUROSEMIDE 80 MG TAB PO SCH (13:30)
--- NOTE | 2017-11-16 16:58 | WOCRNPDOC ---
YVETTE Advanced Assessment Note - Skin Integrity Problem, Advanced Assess Right Foot Diabetic Ulcer Dressing Type: Gauze, Mepilex Border Ag+ Dressing Description: Clean/Dry, Intact Exudate Amount: Minimal Exudate Color: Reddish/Yellow Exudate Characteristic(s): Serosanguinous Integumentary Issue Intervention: Visualized Under Dressing Dania Wound Tissue: Erythema, Swollen Dania Wound Swelling: Moderate Wound Bed Color: Yellow Wound Bed Constitution: Adhered Slough (100%) Wound Edges: Well Defined Site Odor: None Site Measurement - Head-to-Toe Length X Width X Depth (cm): 1.5cmx1.2cmx0.4cm Pulse Location & Description: +DP Skin Integrity Problem Comment: Well-defined, punctate wound on dorsal aspect of R foot, s/p surgical debridement on 11/15. Wound bed 100% slough, no granulation tissue evident. Moderate periwound swelling and erythema. +DP pulse immediately adjacent to wound, and patient reports losing "a pint" of blood from this wound prior to his admission. Most recent H&H is 8.4/27.5. Though wound was debrided yesterday, it is already slough-filled again. Due to concerns about bleeding, will have nursing initiate enzymatic debridement w/ Santyl (collagenase) today. [facility]. Advised that he keep this appointment, as this wound will need ongoing care.
[2017-11-16] MEDS: POTASSIUM CL 20 MEQ TAB PO SCH (21:44)
[2017-11-16] MEDS: PRAVASTATIN SODIUM 10 MG TAB PO SCH (21:44)
[2017-11-17 05:03] LABS: PLATELET COUNT 283 10^3/uL (150-400)
[2017-11-17] MEDS: IPRATROPIUM HFA INHALER IH SCH ×4 (06:14→21:24)
[2017-11-17] MEDS: INSULIN LISPRO 100 UNIT/ML SC SCH ×3 (08:03→17:26)
[2017-11-17] MEDS: Mometasone/Formoterol [Dulera 200 Mcg/5 Mcg Inhaler] 2 PUFFS IH SCH (08:04)
[2017-11-17] MEDS: FUROSEMIDE 40 MG TAB PO SCH (08:07)
[2017-11-17] MEDS: glipiZIDE 10 MG TAB PO SCH ×2 (08:07→17:28)
[2017-11-17] MEDS: ASPIRIN 81 MG CHEWABLE TAB PO SCH (08:07)
[2017-11-17] MEDS: COLLAGENASE 30 GM OINTMENT TP SCH (08:08)
--- NOTE | 2017-11-17 08:52 | SOAPPROG ---
SOAP Progress Note Assessment/Plan: Assessment: Plan: Subjective: resting comfortably Objective: Vital Signs Temp Pulse Resp BP Pulse Ox 36.4 C 72 22 H 96/61 L 94 11/17/17 08:00 11/17/17 08:00 11/17/17 08:00 11/17/17 08:00 11/17/17 08:00 Laboratory Results 11/17/17 04:50 11/17/17 04:50 11/16/17 11/17/17 11/18/17 05:59 05:59 05:59 Intake Total 1000 1250 Output Total 335 350 Balance 665 900 PT 20.4 SEC (12.0-15.0) H 11/14/17 22:05 INR 1.79 (0.83-1.16) H 11/14/17 22:05 O2 sat drops into the low 80's while eating/talking/coughing Physical Exam - Physical Exam General Appearance: no apparent distress Respiratory: lungs clear, decreased breath sounds, prolonged expiration Extremities: other (right dorasal foot dressing intact Mepiplex/no bleeding/ dressing not removed) ICD10 Worksheet Patient Problems: Problems Problem Status Onset Anemia due to acute blood loss Acute COPD (chronic obstructive pulmonary disease) Acute Diabetic foot ulcer Acute Hx of coronary artery disease Acute Chronic obstructive pulmonary disease with acute exacerbation Acute Finger laceration Acute Severe sepsis Acute
--- NOTE | 2017-11-17 14:09 | HOSPPROG ---
Hospitalist Progress Note Assessment/Plan: 67 yo M w cad, dapt, stents 12/03 and dm here w ABLA and bleeding ulcer ABLA: s/p 3 units PRBC. s/p 1 unit platelets. Will give additional PRBC unit today -Per Cardiology the goal Hct is 30, he is below this at this time -There is no e/o ongoing blood loss bleeding foot ulcer: plain film w no fb or osteomyelitis s/p Debridement per Dr. Wilson on 11/15 will f/u with wound clinic, he has an appointment on 11/21/17 cad w stents: has two mid LAD stents placed almost 2 years ago w no intercurrent events stop effient decrease ASA to 81 mg daily d/w cardiology Pulm HTN, Right sided failure Lasix has been restarted, leg edema is decreasing Further diuretics tomorrow HTN: hold Amlodipine for now proph: bleeding scd's dm: well controlled continue meds, but stop Metformin cont ISS Dispo: likely d/c tomorrow, stay tonight. will get additional prbc transfusion Subjective: leg edema is getting better. Hct is not at goal. no further bleeding Objective: Vital Signs Temp Pulse Resp BP Pulse Ox 36.4 C 79 16 98/59 L 92 11/17/17 11:30 11/17/17 11:30 11/17/17 11:30 11/17/17 11:30 11/17/17 11:30 Laboratory Results 11/17/17 04:50 11/17/17 04:50 11/16/17 11/17/17 11/18/17 05:59 05:59 05:59 Intake Total 1000 1250 Output Total 335 350 Balance 665 900 PT 20.4 SEC (12.0-15.0) H 11/14/17 22:05 INR 1.79 (0.83-1.16) H 11/14/17 22:05 - Physical Exam Constitutional: no apparent distress Eyes: PERRL Ears, Nose, Mouth, Throat: moist mucous membranes, hearing normal Cardiovascular: regular rate and rhythym, edema Respiratory: no respiratory distress, no rales or rhonchi, reduced air movement Gastrointestinal: normoactive bowel sounds, soft, non-tender abdomen Skin: warm Neurologic: AAOx3 Psychiatric: interacting appropriately, not anxious, not encephalopathic Lymph, Heme, Immunologic: No petechiae ICD10 Worksheet Patient Problems: Problems Problem Status Onset Anemia due to acute blood loss Acute COPD (chronic obstructive pulmonary disease) Acute Diabetic foot ulcer Acute Hx of coronary artery disease Acute Chronic obstructive pulmonary disease with acute exacerbation Acute Finger laceration Acute Severe sepsis Acute
[2017-11-17 15:02] LABS: PLATELET COUNT 336 10^3/uL (150-400)
[2017-11-17] MEDS: POTASSIUM CL 20 MEQ TAB PO SCH (20:46)
[2017-11-17] MEDS: PRAVASTATIN SODIUM 10 MG TAB PO SCH (20:47)
[2017-11-18] MEDS: Mometasone/Formoterol [Dulera 200 Mcg/5 Mcg Inhaler] 2 PUFFS IH SCH ×2 (02:42→08:31)
[2017-11-18] MEDS: IPRATROPIUM HFA INHALER IH SCH ×2 (06:34→08:31)
[2017-11-18 07:34] VITALS: BP 96/62; TEMP 98.3
[2017-11-18 08:41] VITALS: PULSE 77; RESP 18; O2SAT 95
[2017-11-18] MEDS: INSULIN LISPRO 100 UNIT/ML SC SCH (09:02)
[2017-11-18] MEDS: ASPIRIN 81 MG CHEWABLE TAB PO SCH (09:02)
[2017-11-18] MEDS: glipiZIDE 10 MG TAB PO SCH (09:02)
[2017-11-18] MEDS: COLLAGENASE 30 GM OINTMENT TP SCH (09:04)
[2017-11-18] MEDS: FUROSEMIDE 40 MG TAB PO SCH (09:04)
[2017-11-18 09:36] LABS: PLATELET COUNT 314 10^3/uL (150-400)
[2017-11-18] MEDS ORDERED: CALCITRIOL 0.25 MCG CAP PO SCH (10:55)
[2017-11-18] MEDS ORDERED: METOLAZONE 2.5 MG TAB PO SCH (10:55)
--- NOTE | 2017-11-18 11:02 | PDDCSUM ---
Discharge Summary Discharge Summary: 67 yo M w cad, dapt, stents 12/03 and dm admitted with w LOGAN from bleeding ulcer of foot. He had debridement on 11/15. He had multiple PRBC transfusions. He is ready for discharge. He has held his diuretics this morning as he wants to get home prior to starting these. He is back to baseline. Of note, Effient was stopped and Aspirin decreased to 81mg daily. He will f/u with wound care clinic on 11/21 and with PCP in one week and with [facility] in 4 weeks. DDX: ABLA: s/p 4 units PRBC. s/p 1 unit platelets. -Per Cardiology the goal Hct is 30 -There is no e/o ongoing blood loss bleeding foot ulcer: plain film w no fb or osteomyelitis s/p Debridement per Dr. Wilson on 11/15 will f/u with wound clinic, he has an appointment on 11/21/17 cad w stents: has two mid LAD stents placed almost 2 years ago w no intercurrent events stop effient decrease ASA to 81 mg daily Pulm HTN, Right sided failure cont home diuretics when he gets home HTN: cont Amlodipine proph: bleeding scd's dm: well controlled cont home meds Exam: VSS NAD AAOX3 RRR DECREASE LUNDS SOUNDS, NORMAL WORK OF BREATHING 1-2+ LE EDEMA MEDS: SEE MED REC. MARTINEZ CHANGES PER ABOVE F/U: PER ABOVE TOTAL TIME SPENT ON D/C IS 36 MINUTES
--- NOTE | 2017-11-18 11:36 | PDIAF ---
- Diagnosis Diagnosis: acute blood loss anemia Code Status: Full Code - Medication Management Discharge Medications: Medications to Continue on Transfer Ipratropium [Atrovent Hfa (*)] 2 puffs IH QID 11/30/15 [Last Taken 11/14/17 09: 00] Mometasone/Formoterol [Dulera 200 Mcg/5 Mcg Inhaler] 2 puffs IH BID 11/30/15 [ Last Taken 11/14/17 09:00] Simvastatin [Zocor] 5 mg PO HS 11/30/15 [Last Taken 11/13/17] glipiZIDE [Glipizide] 10 mg PO BIDAC 11/30/15 [Last Taken 11/14/17 09:00] metFORMIN HCL [Glucophage 500 mg (*)] 1,000 mg PO DAILY18 11/30/15 [Last Taken 11/13/17] Calcitriol [Calcitriol (*)] 0.25 mcg PO NIXON 11/15/17 [Last Taken 11/11/17] Furosemide [Lasix 80 MG (*)] 80 mg PO DAILY 11/15/17 [Last Taken 11/14/17] Metolazone [Zaroxolyn] 2.5 mg PO NIXON 11/15/17 [Last Taken 11/11/17] Potassium Cl [Klor-Con 20 meq (*)] 20 meq PO HS 11/15/17 [Last Taken 11/13/17] Aspirin [Aspirin 81mg (*)] 81 mg PO DAILY #30 tab.chew 11/18/17 [Last Taken Unknown] Discharge Medications: Refer to the Discharge Home Medication list for PRN reason. - Orders Services needed: Home Care, Registered Nurse (RN, wound care) Home Care Face to Face: I certify that this patient was under my care and that I had the required [id number] encounter meeting the encounter requirements on the discharge day. My findings support the fact that the patient is homebound as defined in Home Care Face to Face Continued: CMS Chapter 7 Medicare Benefits Manual 30.1.1 , The condition of the patient is such that there exists a normal inability to leave home and consequently, leaving home would require a considerable and taxing effort. Diet Recommendation: no restrictions on diet - Follow Up Care Current Providers and Referrals: Geovnana Winters MD [Primary Care Provider] - As per Instructions Lucas Woodard MD [Medical Doctor] - (Follow up with Dr. Woodard on 2017 at 10:15 a.m. at [facility]'s [place] office)
--- NOTE | 2017-11-18 12:07 | ASDISCHSUM ---
Discharge Information Plan Status:Home with Home Health Medically Cleared to Leave:11/18/2017 Discharge Date:11/18/2017 CM D/C Disposition:Home Health Service ADT D/C Disposition:Home, Routine, Self-Care Projected Discharge Date:11/18/2017 11:00 AM Transportation at D/C:Family Discharge Delay Reason: Follow-Up Date:11/18/2017 11:00 AM Discharge Slot:1 - 8:01 am - 12:00 noon Final Diagnosis:DM ulcer foot, Anemia Placement Information Referral Type:*Home Health Care Services Referral ID:[id number] Provider Name:[facility] Address 1:[address] [place] [address] Address 2: City:[place] Selection Factors: State:[place] Patient Contact Information Contact Name:TK Relationship:Son Address: Work Phone: City: [facility] Phone: [facility] Code: Email: Financial Information Financial Class:Medicare Advantage Plans Primary Plan Desc:[facility] [facility] [employer] Primary Plan Number:[id number] Secondary Plan Desc: Secondary Plan Number: Assessment Information LACE LACE Length of stay for Answers: 4-6 days current admission Acuity / Level of Answers: Yes Care: Did the patient have an inpatient admission? Comorbidities - select Answers: Chronic pulmonary disease all that apply Coronary Artery Disease Diabetes (uncontrolled or controlled) Other Notes: HTN # of Emergency department Answers: 3-4 visits in the last 6 months Social determinants Answers: History of substance abuse (ETOH, street drugs, prescription drugs, etc.) Lack of community resources and/or lack of social support (no pcp, lives alone, transportation, judy d) Score: 23 Date Signed: 11/18/2017 12:05 PM Electronically Signed By:Ashley Martins LCSW [facility] CM Progress Note CM Note CM Note Notes: Patient admitted for bleeding of a chronic R foot wound. Per H&P, he has been treated with multiple antibiotics for this. He also has a PMH significant for CAD, COPD, HTN, and DMII. Wound care and ID have been consulted. Blood cultures are pending. Patient is normally independent and will likely not have PT/OT needs. If he needs a home performance laborer for wound care and/or IV antibiotics, Case Management will assist. Date Signed: 11/15/2017 09:34 AM Electronically Signed By:Magalis Grier RN [facility] CM Progress Note CM Note CM Note Notes: Hodan with [facility] calls to report pt is current w [facility] RN. Date Signed: 11/16/2017 09:55 AM Electronically Signed By:SHELDON Henry CAGE Questionnaire CAGE Do you feel you ought to Answers: Yes cut down on your drinking or drug use? Do people annoy you by Answers: No criticizing your drinking or drug use? Do you feel guilty about Answers: No your drinking or drug use? Do you drink or use drugs Answers: No first thing in the morning ([employer])? Additional Comments Pt does not trigger referrals for treatment and declines resources Date Signed: 11/16/2017 11:08 AM Electronically Signed By:SHELDON Henry Case Management Discharge Plan Note Case Management Discharge Discharge Order Complete? Answers: Yes Followup Appointment 11/21/2017 12:00 AM Patient to Obtain Answers: via Family Medications Transportation Arranged Answers: Family/Friends Transport will Pick (Date 11/18/2017 12:00 AM & Time) Faxed Final Orders Answers: Yes Notes: [facility] Discharge Comments Notes: Patient has been discharged home with [facility] to do wound care until [facility] on Sunday. Date Signed: 11/18/2017 11:56 AM Electronically Signed By:Ashley Martins LCSW Intervention Information Intervention Type:*IM-Signed Date of Service:11/15/2017 03:49 PM Patient Type:Inpatient Staff Member:Melissa Lund Hours: Discipline: Severity: Comment: Intervention Type:*IM-Signed Date of Service:11/18/2017 11:56 AM Patient Type:Inpatient Staff Member:GASTON Martins Judith Hours:0.25 Discipline:Take Up Supervisor Severity: Comment:
--- NOTE | 2017-11-21 15:04 | PQFORM ---
PHYSICIAN QUERY FORM Needs Your Response This query form is being sent to you to assure this patient record is coded properly. Please respond to the question below: GROUND INSTRUCTOR ADVANCED QUESTION: Dr Wilson Was the Debridement performed __x_ Excisional ___ Non Excisional ___ Other (Please Specify pathology report was generated on tissue submitted for confirmation ) Thank You Rebecca LEWIS Instructional Technology Director INSTRUCTIONS FOR RESPONSE: Answer question by clicking on the "Edit Document" button. Move cursor to area below the stars. When complete, hit "Save." Click on the "Sign" button, then click "Sign" again. Type in your PIN and hit "Enter." MTDD
== END 2017-11-18 14:39 | disposition home health service (06) | DRG 623 ==
LOC: CED 21:04 → CEDHOLD 22:39 → F3N 11-15 00:24
PROVIDERS: ADMIT Student in an Organized Health Care Education/Training Program; ATTEND Student in an Organized Health Care Education/Training Program
PROC: 30233N1 Transfusion of Nonautologous Red Blood Cells into Peripheral Vein, Percutaneous Approach (ICD-10-PCS; principal; 2017-11-15 18:15)
PROC: 0JBQ0ZZ Excision of Right Foot Subcutaneous Tissue and Fascia, Open Approach (ICD-10-PCS; principal; 2017-11-15 18:15)
PROC: 30233R1 Transfusion of Nonautologous Platelets into Peripheral Vein, Percutaneous Approach (ICD-10-PCS; principal; 2017-11-15 18:15)
DX: E10.622 Type 1 diabetes mellitus with other skin ulcer (principal); L97.518 Non-pressure chronic ulcer of other part of right foot with other specified severity; I96 Gangrene, not elsewhere classified; I13.0 Hypertensive heart and chronic kidney disease with heart failure and stage 1 through stage 4 chronic kidney disease, or unspecified chronic kidney disease; N18.9 Chronic kidney disease, unspecified; I50.9 Heart failure, unspecified; I25.10 Atherosclerotic heart disease of native coronary artery without angina pectoris; D62 Acute posthemorrhagic anemia; J44.9 Chronic obstructive pulmonary disease, unspecified; E78.5 Hyperlipidemia, unspecified; J96.11 Chronic respiratory failure with hypoxia; Z79.82 Long term (current) use of aspirin; Z95.5 Presence of coronary angioplasty implant and graft; Z99.81 Dependence on supplemental oxygen; Z87.891 Personal history of nicotine dependence; Z79.01 Long term (current) use of anticoagulants
CPT/HCPCS: 73620-PO; 80048-PO; 85025-PO; 85610-PO; 85652-PO; 85730-PO; 97161-GP; G8978-GP-CI; G8979-GP-CI; G8980-GP-CI; J2250; J2704; P9016; P9035

== ENCOUNTER 2018-01-12 13:22 | Inpatient (IN) | payer OTHER ==
--- NOTE | 2018-01-12 13:39 | EDPHY ---
H & P Stated Complaint: PT. states yesterday with swelling rle, today erythema,known COPD Time Seen by Provider: 01/12/18 13:27 HPI/ROS: 67-year-old male with multiple medical problems, most significantly COPD on 8 L nasal cannula around the clock, diabetes, hypertension presents today complaining of sudden onset of right lower leg redness and fever. He has a long history of diabetic foot ulcer and was recently admitted to the hospital in late October in early November for debridement of that ulcer and control of bleeding. He states he was at the wound care clinic yesterday and had treatment for his right foot ulcer and at that time did not have redness of his right lower extremity he states that developed suddenly this morning. He called an ambulance and requested that they bring him to [facility]. He denies worsened shortness of breath however he does state he did not uses rescue inhaler this morning and would benefit from a breathing treatment. Review of systems General positive fevers positive chills, denies weakness HEENT no eye pain no eye discharge. No eye redness, no sore throat Respiratory no cough, positive shortness of breath Cardiac no chest pain, pos edema GI no abdominal pain, no diarrhea, no constipation, no nausea, no vomiting no flank pain, no hematuria, no dysuria Musculoskeletal no myalgias, no joint pain Heme no easy bruising, positive easy bleeding Endo no polyuria, no polydipsia Skin positive rashes, no pruritus Neuro no syncope, no dizziness, no headaches Psych is no suicidal ideation, no homicidal ideation Source: Patient Exam Limitations: No limitations - Medical/Surgical History Hx Asthma: No Hx Chronic Respiratory Disease: Yes Hx Diabetes: Yes Hx Cardiac Disease: Yes Hx Renal Disease: Yes Hx Cirrhosis: No Hx Alcoholism: No Hx HIV/AIDS: No Hx Splenectomy or Spleen Trauma: No Other PMH: COPD, CRD, HTN, DM, polycythemia, Vit D deficiency. Coronary artery disease with LAD stent placed in 2016 - Family History Significant Family History: No pertinent family hx - Social History Smoking Status: Former smoker Alcohol Use: None Drug Use: None - Physical Exam Exam: 67 yo M alert and oriented , purse lip breathing on oxygen, febrile to 101 at,nc eomi, anicteric, pale conjunctivae neck supple lungs scattered wheeze heart rrr abd non dist, bs present, soft nt ext right lower ext with pitting edema , erythema and induration from ankle to just below knee on anterior lower leg, increased warmth dorsum right foot with mepilex at site of recent ulceration left leg trace edema Constitutional: Initial Vital Signs Temperature (C) 38.0 C 01/12/18 13:27 Heart Rate 95 01/12/18 13:27 Respiratory Rate 28 H 01/12/18 13:27 Blood Pressure 97/60 L 01/12/18 13:27 O2 Sat (%) 10 L 01/12/18 13:27 O2 Delivery Mode Non-Rebreather Mask O2 (L/minute) 8 Allergies/Adverse Reactions: no drug allergies Allergy (Uncoded 01/12/18 13:24) tape Allergy (Uncoded 11/23/16 16:06) Home Medications: Medication Instructions Recorded Ipratropium [Atrovent Hfa (*)] 2 puffs IH QID 11/30/15 Mometasone/Formoterol [Dulera 200 2 puffs IH BID 11/30/15 Mcg/5 Mcg Inhaler] Simvastatin [Zocor] 5 mg PO HS 11/30/15 glipiZIDE [Glipizide] 10 mg PO BIDAC 11/30/15 metFORMIN HCL [Glucophage 500 mg 1,000 mg PO DAILY18 11/30/15 (*)] Calcitriol [Calcitriol (*)] 0.25 mcg PO NIXON 11/15/17 Furosemide [Lasix 80 MG (*)] 80 mg PO DAILY 11/15/17 Metolazone [Zaroxolyn] 2.5 mg PO NIXON 11/15/17 Potassium Cl [Klor-Con 20 meq (*)] 20 meq PO HS 11/15/17 Aspirin [Aspirin 81mg (*)] 81 mg PO DAILY #30 tab.chew 11/18/17 Medical Decision Making - Diagnostics Imaging Results: Imaging Impressions Chest X-Ray 01/12/18 13:37 Impression: 1. Chronic airways disease and minimal emphysema. 2. No pneumonia or acute process. Extremity Venous Study 01/12/18 13:37 Impression: Negative. No deep venous thrombosis. Findings discussed with Emergency Department physician, Dr. Patience Figueroa on January 12, 2018 at 1550 hours. ED Course/Re-evaluation: Patient brought by [place] ambulance as"non emergent"cellulitis. Patient specifically requested transport to [facility]. Patient evaluated for right lower extremity redness, with fever. Pt noted to be borderline hypotensive on arrival at 97/50. IV established Blood culture sent Lactate 3.3, repeat lactate 2.7 after 2nd L of fluid CBC with elevated white blood cell count of 40 CMP IV fluids started for sepsis protocol , Vancomycin 2gm started Zosyn not available, so Ceftriaxone and Flagyl ordered. Pt admitted to ICU at [facility] Discussed with Dr Dubose Upon arrival of transport team, pt had 2 IV lines , had received 2 liters normal saline, with a 3rd started Vancomycin and Ceftriaxone were given but Flagyl had not been started. Imp Right leg cellulitis Sepsis Plan Admit ICU [facility] Differential Diagnosis: Differential diagnosis considered but not limited to and in no particular order: Cellulitis, necrotizing fasciitis, deep vein thrombosis, COPD, sepsis - Data Points Laboratory Results: Laboratory Results 01/12/18 13:43 01/12/18 13:43 01/12/18 01/12/18 01/12/18 13:43 13:43 13:43 WBC 40.27 10^3/uL H 10^3/uL (3.80-9.50) RBC 4.59 10^6/uL 10^6/uL (4.40-6.38) Hgb 10.0 g/dL L g/dL (13.7-17.5) Hct 34.8 % L % (40.0-51.0) MCV 75.8 fL L fL (81.5-99.8) MCH 21.8 pg L pg (27.9-34.1) MCHC 28.7 g/dL L g/dL (32.4-36.7) RDW 20.6 % H % (11.5-15.2) Plt Count 307 10^3/uL 10^3/uL (150-400) MPV 11.3 fL fL (8.7-11.7) Neut % (Auto) 89.4 % H % (39.3-74.2) Lymph % (Auto) 2.1 % L % (15.0-45.0) [place] % (Auto) 5.8 % % (4.5-13.0) Eos % (Auto) 0.0 % L % (0.6-7.6) Baso % (Auto) 0.2 % L % (0.3-1.7) Nucleat RBC Rel Count 0.0 % % (0.0-0.2) Absolute Neuts (auto) 36.00 10^3/uL H 10^3/uL (1.70-6.50) Absolute Lymphs (auto) 0.83 10^3/uL L 10^3/uL (1.00-3.00) Absolute Monos (auto) 2.35 10^3/uL H 10^3/uL (0.30-0.80) Absolute Eos (auto) 0.00 10^3/uL L 10^3/uL (0.03-0.40) Absolute Basos (auto) 0.10 10^3/uL 10^3/uL (0.02-0.10) Absolute Nucleated RBC 0.00 10^3/uL 10^3/uL (0-0.01) Immature Gran % 2.5 % H % (0.0-1.1) Immature Gran # 0.99 10^3/uL H 10^3/uL (0.00-0.10) Platelet Estimate ADEQUATE (ADEQ) Polychromasia 1+ H Hypochromasia 1+ H Microcytic Cells 1+ H Oval Macrocytes 1+ H Smear Review By Pending VBG Lactic Acid Sodium 137 mEq/L mEq/L (135-145) Potassium 4.4 mEq/L mEq/L (3.3-5.0) Chloride 100 mEq/L mEq/L (97-110) Carbon Dioxide 24 mEq/l mEq/l (22-31) Anion Gap 13 mEq/L mEq/L (8-16) BUN 26 mg/dL H mg/dL (7-23) Creatinine 1.0 mg/dL mg/dL (0.7-1.3) Estimated GFR > 60 Glucose 73 mg/dL mg/dL (70-100) Calcium 8.2 mg/dL L mg/dL (8.5-10.4) Total Bilirubin 2.6 mg/dL H mg/dL (0.1-1.4) Conjugated Bilirubin 1.1 mg/dL H mg/dL (0.0-0.5) Unconjugated Bilirubin 1.5 mg/dL H mg/dL (0.0-1.1) AST 25 IU/L IU/L (17-59) ALT 22 IU/L IU/L (21-72) Alkaline Phosphatase 130 IU/L H IU/L (38-126) NT-Pro-B Natriuret Pep 37802 pg/mL H pg/mL (0-125) Total Protein 6.6 g/dL g/dL (6.3-8.2) Albumin 3.1 g/dL L g/dL (3.5-5.0) 01/12/18 13:43 WBC RBC Hgb Hct MCV MCH MCHC RDW Plt Count MPV Neut % (Auto) Lymph % (Auto) [place] % (Auto) Eos % (Auto) Baso % (Auto) Nucleat RBC Rel Count Absolute Neuts (auto) Absolute Lymphs (auto) Absolute Monos (auto) Absolute Eos (auto) Absolute Basos (auto) Absolute Nucleated RBC Immature Gran % Immature Gran # Platelet Estimate Polychromasia Hypochromasia Microcytic Cells Oval Macrocytes Smear Review By VBG Lactic Acid 3.3 mmol/L H mmol/L (0.7-2.1) Sodium Potassium Chloride Carbon Dioxide Anion Gap BUN Creatinine Estimated GFR Glucose Calcium Total Bilirubin Conjugated Bilirubin Unconjugated Bilirubin AST ALT Alkaline Phosphatase NT-Pro-B Natriuret Pep Total Protein Albumin Medications Given: Discontinued Medications Acetaminophen (Tylenol) 1,000 mg PO EDNOW ONE Stop: 01/12/18 13:41 Last Admin: 01/12/18 14:02 Dose: 1,000 mg Albuterol/Ipratropium (Duoneb) 3 ml IH EDNOW ONE Stop: 01/12/18 13:57 Last Admin: 01/12/18 14:02 Dose: 3 ml Vancomycin HCl 2 gm/ Sodium (Chloride) 500 mls @ 250 mls/hr IV EDNOW ONE PRN Reason: Protocol Stop: 01/12/18 15:44 Last Admin: 01/12/18 14:44 Dose: 500 mls Sodium Chloride (Ns) 1,000 mls @ 0 mls/hr IV ONCE ONE PRN Reason: Wide Open Stop: 01/12/18 14:23 Last Admin: 01/12/18 14:43 Dose: 1,000 mls Sodium Chloride (Ns) 1,000 mls @ 0 mls/hr IV ONCE ONE PRN Reason: Wide Open Stop: 01/12/18 14:24 Last Admin: 01/12/18 15:57 Dose: 1,000 mls Piperacillin/Tazobactam/Dextrose (Zosyn 3.375 Gm (Premix)) 50 mls @ 100 mls/hr IV EDNOW ONE PRN Reason: Protocol Stop: 01/12/18 14:57 Last Admin: 01/12/18 17:00 Dose: Not Given Metronidazole/Sodium Chloride (Flagyl 500 Mg (Premix)) 100 mls @ 100 mls/hr IV EDNOW ONE PRN Reason: Protocol Stop: 01/12/18 15:38 Last Admin: 01/12/18 16:59 Dose: Not Given Ceftriaxone Sodium 2 gm/ (Sterile Water) 20 mls @ 300 mls/hr IV EDNOW ONE PRN Reason: Protocol Stop: 01/12/18 15:05 Last Admin: 01/12/18 15:09 Dose: 20 mls Departure - Departure Disposition: [facility] Inpatient Acute Clinical Impression: Severe sepsis, Cellulitis Condition: Critical
[2018-01-12] MEDS ORDERED: ACETAMINOPHEN 500 MG TAB PO ONE (13:40)
[2018-01-12] MEDS ORDERED: VANCOMYCIN 2 GM in NS 500 ML IV ONE (13:45)
[2018-01-12] MEDS ORDERED: IPRATROPIUM/ALBUTEROL 3 ML DEYVIAL IH ONE (13:56)
[2018-01-12 14:13] LABS: PLATELET COUNT 307 10^3/uL (150-400)
[2018-01-12] MEDS ORDERED: NS 1,000 ML IV ONE ×4 (14:22→17:37)
[2018-01-12] MEDS ORDERED: PIPERACILLIN/TAZO 3.375 GM/DEX 50 ML IV ONE (14:28)
[2018-01-12] MEDS ORDERED: cefTRIAXone 2 GM in STERILE WATER INJ 20 ML IV ONE ×2 (14:39→15:02)
[2018-01-12] MEDS ORDERED: cefTRIAXone 1 GM VIAL ONE (14:49)
[2018-01-12] MEDS ORDERED: NS 100 ML BAG IV ONE (14:50)
--- NOTE | 2018-01-12 16:32 | PDGENHP ---
History and Physical History and Physical: CC: Redness of right leg and fever both new onset today HISTORY: This gentleman with a long history of diabetic foot wounds in his right leg as well as recurrent infections, was seen at the wound Care Clinic yesterday with Dr. Thomas and apparently was doing okay. However today he developed onset of redness of the leg and significant fever with rigors and sweats, hot and cold sensations.. He therefore presented initially to the emergency room at the [facility], by ambulance. There they found him to have fever low blood pressures and very high white count along with a cellulitic appearing leg. Cultures were obtained and antibiotics started, in use given some initial fluid resuscitation there and ambulance has been called to bring him here for admission to the intensive care unit with diagnosis of acute sepsis. Has some pain in the leg but not very severe. He has severe chronic lung disease and pulmonary hypertension, but states his breathing is no different than usual, and he has been using his typical 8 L nasal cannula oxygen at home. He has not noticed any other new acute symptoms. ROS: A comprehensive 10 system review revealed no other significant findings PAST MEDICAL HISTORY: Chronic ongoing diabetic foot wounds right leg, recurrent infections in that leg Chronic severe obstructive lung disease, severe pulmonary hypertension (71 year ago), and severe hypoxemic respiratory failure uses 8 L oxygen at home Coronary artery disease with [address], preserved ejection fraction on echo in November 2016 at 65% Type 2 diabetes mellitus FAMILY MEDICAL HISTORY: CHF and lung cancer SOCIAL HISTORY: Quit smoking some years ago, drinks gin and tonic, stated at 3 drinks per day MEDICATIONS: The patients list has been reconciled by our clinical pharmacist in the EMR. I have reviewed the list and ordered appropriate medicines. 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 Despite those transfusions he left the hospital with a hemoglobin with a hemoglobin of 10 compared to 14 in August. More concerning is that even back in 2016 he was already becoming microcytic with baseline MCV earlier that year of 88-90 dropping to 80 in May. It has now dropped further to 75 which may be in part be due to the loss of blood from his foot in October, but the microcytosis does predate his bleeding episode in October raising concern for possible other sources such as gut. Creatinine good at 1.0 but BUN a bit elevated 26, bilirubin 2.6 with normal ALT and AST, minimal elevation of alkaline phosphatase BNP 78605, electrolytes normal RADIOLOGY STUDIES: Chest x-ray was done at the ER, I reviewed this image from a on AP single-view study and my interpretation is chronic hyperexpansion of lungs with no infiltrates heart failure effusions or other acute processes Doppler ultrasound of legs was also done showing no evidence of DVT ASSESSMENT: # ACUTE SEPTIC SHOCK WITH DEVELOPING ORGAN FAILURE with fever, hypotension, high white blood cell count, lactic acidosis, tachypnea, and cellulitis of leg # ACUTE CELLULITIS OF RIGHT LEG WITH ONGOING LONG HISTORY OF DIABETIC FOOT WOUND * His diabetic foot ulcer actually looks very good right now and the location of this infection is more in line with stasis disease which he also has in his legs * By exam it appears as a cellulitis without deep soft tissue infection, but given the severity of his illness I will image him to be certain there is not a deep soft tissue process needing attention # ACUTE OLIGURIC RENAL FAILURE is developing at this time with minimal urine output despite very aggressive fluid resuscitations # MICROCYTIC ANEMIA, ONSET IN MAY 2017 BASED ON REVIEW OF LABS, now worsened after hemorrhage from his right foot 2 months ago that required transfusions # SEVERE CHRONIC HYPOXEMIC RESPIRATORY FAILURE ON 8 L OF OXYGEN AT HOME, CURRENTLY STABLE * Need very careful monitoring as his severe sepsis could potentially lead to worsening respiratory failure and he does not have much room # type 2 diabetes mellitus PLANS: -admission to intensive care unit -continue IV fluid resuscitation -given his negative response on night come will begin pressor with Levophed at this time -continue monitoring with sepsis protocols -after cultures were obtained the patient did receive a dose of vancomycin, and I will continue that. As they did not have Zosyn at the urgent care was given a dose of Rocephin. At this point will replace that with Zosyn here -follow renal function very closely, a Treviño is in place to monitor output -id consult and critical care consult -continue his usual pulmonary inhaled medicines, follow his respiratory status very closely -DVT prophylaxis is ordered; will use heparin q.8 hours as he appears to be developing some renal insufficiency for the moment -gastric ulcer prophylaxis -will order iron studies to be certain that he does have iron deficiency which seems almost certain, and will give some IV iron at this time; as he had iron deficiency developed prior to his bleeding episode 2 months ago, would consider that he may need a GI assessment for this I have reviewed the patient's case in detail with Dr. Patience Figueroa I have reviewed the patient's past medical records as part of this assessment, including
[2018-01-12] MEDS ORDERED: ONDANSETRON 4 MG/2 ML VIAL IVP PRN (17:37)
[2018-01-12] MEDS ORDERED: ONDANSETRON DISINTEGRATING 4 MG TAB PO PRN (17:37)
[2018-01-12] MEDS ORDERED: ACETAMINOPHEN 325 MG TAB PO PRN (17:37)
[2018-01-12] MEDS ORDERED: ZOLPIDEM TARTRATE 5 MG TAB PO PRN (17:37)
--- NOTE | 2018-01-12 18:12 | PDMN ---
Medical Necessity Medical necessity: C/M review: Patient meets INPT criteria [place] [facility] [place] Cellulitis: Acute - severe sepsis, right lower extremity cellulitis with ongoing long history of diabetic foot wound, microcytic anemia, BP down to 87/45 , WBC40.27, Hgb 10.0, Hct 34.8, VBG lactic acid 3.3, 2.7, BUN 26, Cr 8.2, total bilirubin 2.6, Alk phos 13., [place] [address], requiring planned Infectious Disease consult, Wound care consult, IV Ceftriaxone / IV Vancomycin / 4 liters of NS IV fluid in ED, blood cultures x 2 pending, ongoing IV Zosyn Q 6 hrs., pulse oximetry, supplemental O2 15l/min per oxymizer, monitoring with severe sepsis protocols in ICU, comorbid history of chronic ongoing diabetic wounds right leg (present on admission, recurrent infections in right leg, chronic obstructive obstructive lung disease, severe pulmonary hypertension, severe hypoxemic respiratory failure, chronic O2 8L/min. use at home, CAD with stents x [address], type 2 diabetes. MD anticipates > 2 MN LOS for ongoing med nec for eval and TX of above. Patient is Medicare Advantage which follows guidelines CMS puts forth.
[2018-01-12 18:50] LABS: INR 1.7 (0.83-1.16); PROTIME(PATIENT) 20.1 SEC (12.0-15.0)
--- NOTE | 2018-01-12 19:28 | POSTOPPROG ---
Post Op Note Date of Operation: 01/12/18 Surgeon: Israel Verdugo Anesthesia: Local (Specify) (4cc 1% lidocaine) Pre-op Diagnosis: sepsis, inadequate access for pressors Post-op Diagnosis: sepsis, inadequate access for pressors Indication: sepsis, inadequate access for pressors Procedure: right subxclavian central line Findings: sepsis, inadequate access for pressors Inf/Abcess present in the surg proc area at time of surgery?: No EBL: Minimal Complications: none Specimen(s): none
[2018-01-12] MEDS ORDERED: NOREPINEPHRINE/NS 500 ML IV SCH (19:30)
--- NOTE | 2018-01-12 20:09 | GOP ---
[f rep st] OPERATIVE REPORT DATE OF OPERATION: 01/12/2018 SURGEON: Israel Verdugo MD ANESTHESIA: 4 cc of 1% local anesthetic. PREOPERATIVE DIAGNOSIS: Sepsis, inadequate venous access for pressor use. POSTOPERATIVE DIAGNOSIS: Sepsis, inadequate venous access for pressor use. PROCEDURE PERFORMED: Placement of a right subclavian central venous catheter. FINDINGS: Sepsis, inadequate venous access for pressor use. INDICATIONS: Sepsis, inadequate venous access for pressor use. DESCRIPTION OF PROCEDURE: Patient was carefully identified. A surgical time- out was carried out. A signed consent. This was agreed to by ICU staff and myself. He was now placed in the Trendelenburg position. His neck was carefully clipped , prepped, and draped. The skin was anesthetized. Note is made his INR is 1.7. Venous distention had been checked with ultrasound prior to prepping the patient. The veins were appropriately distended. The thin wall needle was carefully advanced into the subclavian vein on the first pass. When good return was obtained, it was carefully rotated clockwise 90 degrees. It had been inserted bevel up. The guidewire was carefully passed. Ectopy was not noted. The needle was removed over the guidewire. The skin was incised. A dilator was carefully passed. The previously flushed triple-lumen catheter was now fed over the guidewire. The blue and white lumens have been flushed. Once it was in place at 15 cm, the guidewire was removed. The 3rd port (brown) receives a Hep-Lock adapter and it, too, was flushed. The line was sutured at the skin level and at the hub. A Biopatch was placed. A Tegaderm dressing was used. The patient was now placed in the sitting position. Upright chest x-ray was obtained. There is no pneumothorax. The central line is in the correct position. /[id number]/MODL MTDD
[2018-01-12] MEDS: IPRATROPIUM/ALBUTEROL 3 ML DEYVIAL IH SCH (21:11)
[2018-01-12] MEDS: POTASSIUM CL 20 MEQ TAB PO SCH (22:26)
[2018-01-12] MEDS ORDERED: PIPERACILLIN/TAZO 3.375 GM/DEX 50 ML IV SCH (23:00)
[2018-01-13] MEDS: PIPERACILLIN SODIUM/TAZOBACTAM 3.375 GM in D5W 50 ML IV SCH ×5 (00:02→22:50)
[2018-01-13] MEDS: HEPARIN 5,000 UNIT/0.5 ML INJ SC SCH ×4 (00:02→21:33)
[2018-01-13] MEDS: NOREPINEPHRINE BITARTRATE 4 MG in D5W 500 ML IV SCH ×2 (00:44→18:55)
[2018-01-13 05:25] LABS: PLATELET COUNT 327 10^3/uL (150-400)
[2018-01-13] MEDS: IPRATROPIUM/ALBUTEROL 3 ML DEYVIAL IH SCH (05:27)
[2018-01-13 05:33] LABS: INR 1.87 (0.83-1.16); PROTIME(PATIENT) 21.6 SEC (12.0-15.0)
[2018-01-13] MEDS: IPRATROPIUM HFA INHALER IH SCH ×2 (05:48→19:20)
[2018-01-13] MEDS: PRAVASTATIN SODIUM 10 MG TAB PO SCH ×2 (07:49→21:33)
[2018-01-13] MEDS: glipiZIDE 10 MG TAB PO SCH ×2 (08:18→17:51)
[2018-01-13] MEDS: FAMOTIDINE 20 MG TAB PO SCH (08:18)
[2018-01-13] MEDS: SODIUM FERRIC GLUCONAT/SUCROSE 125 MG in NS 100 ML IV SCH (08:19)
[2018-01-13] MEDS: LINEZOLID 600 MG TAB PO SCH ×2 (09:42→21:33)
[2018-01-13] MEDS ORDERED: VASOPRESSIN 25 UNIT in D5W 250 ML IV SCH (10:00)
[2018-01-13] MEDS ORDERED: VASOPRESSIN/DEXTROSE 250 ML IV SCH (10:00)
--- NOTE | 2018-01-13 10:15 | GCON ---
[f rep st] CONSULTATION INFECTIOUS DISEASE CONSULT DATE OF CONSULTATION: 01/13/2018 REFERRING PHYSICIAN: Austin Dubose MD REASON FOR CONSULT: To assist in the management of this 67-year-old male with severe right lower extremity cellulitis. HISTORY OF PRESENT ILLNESS: The patient is a very pleasant 67-year-old male whose previous medical history is notable for the followin. Severe COPD secondary to previous tobacco use. The patient is followed by Dr. Arvin Wilcox and is not on chronic corticosteroids. The patient states his last steroid use was over a year ago. He is on chronic oxygen 12/03, approximately 8 L. 2. History of right heart failure with pulmonary artery hypertension. 3. Coronary artery disease with a history of PCIs. 4. Type 2 diabetes mellitus. Regarding his present issues, the patient states that he has had a nickel-sized superficial wound on the dorsum of his right foot for quite some time and has been followed by Dr. Esmer Thomas for this. Of note, previous cultures from this wound grew Staphylococcus pseudo intermedius and Aide albicans back on November 06, 2017. Susceptibilities could not be performed on the Staphylococcus pseudo intermedius, although it was PBP negative. The patient states that he saw Dr. Thomas in routine followup in [facility] this past Sunday. His wound looked excellent, with pink granulating tissue with no surrounding cellulitis. The patient states he was wearing VENUS hose on the right lower extremity, which was pushed superiorly and his entire leg was not visible. That being said, the patient states that he looked at his leg a few hours prior to seeing Dr. Thomas and he thought things looked fine. Approximately 3 a.m. on Sunday morning, the patient woke up and felt feverish. He took his temperature and it was 101. He also had mild rigors at the time and developed significant discomfort in his right lower extremity when he got out of bed. He denies any antecedent trauma. No antecedent sore throat. He has no water exposures other than his shower and tries to avoid walking barefoot. He does not walk barefoot outside. The patient does have a dog with whom he is quite close. The dog sleeps with him in bed, but he states that the dogs has had no contact with his wounds and he has not been bitten or scratched or other in the recent past. The patient presented to [facility] where he was found to have a temperature of 38. He was given 2 g of vancomycin, 500 mg of metronidazole, and 2 g of ceftriaxone. [facility] and [facility]. The patient was hypotensive with blood pressures in the 90s/50s. He was admitted to the intensive care unit and started on 10 mcg of Levophed. An ultrasound of his right lower extremity did not reveal any evidence of clot. No further imaging was performed other than a chest x-ray that was without evidence of pneumonia. A central line was placed, and the patient's antibiotics were changed to Zosyn 3.375 g IV q.6 hours. I am now asked to assist in his management. Speaking with the patient today, he tells me "I feel a lot better." His leg is less painful. He feels that perhaps there may be extension of erythema above his knee that was not there yesterday. He denies any additional rigors. The patient has his usual baseline shortness of breath, but no chest pain, abdominal pain, nausea, vomiting, diarrhea, dysuria, or other. REVIEW OF SYSTEMS: Aside from what is listed above, 10 systems reviewed and all are negative. PREVIOUS MEDICAL HISTORY: As outlined above. ALLERGIES: No known drug allergies. MEDICATIONS: Status post 2 g of vancomycin, status post metronidazole 500 mg x1 , status post ceftriaxone 2 g x1. Zosyn 3.375 g IV q.6 hours, Pepcid, pravastatin 10 mg p.o. h.s., Ambien p.r.n. 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 He lives by himself at house in [place] with his small dog that is a "Caleb type dog." No exposures as outlined above. No recent travel. The patient is a former heavy smoker. He also drinks 3 alcoholic beverages per day. Note, he is occasionally around his 8-year-old grandson, but the last exposure to him was over 3 weeks ago. FAMILY HISTORY: Notable for lung cancer. PHYSICAL EXAM: VITAL SIGNS: T-current 37.1, T-max 38, heart rate 87, blood pressure 107/51 on 10 mcg of Levophed. GENERAL: Atraumatic, normocephalic. Sitting up in the chair. No apparent distress. Eating breakfast. HEENT: Pupils equal, round, react to light. Extraocular movements are intact. No conjunctival injection, icterus, or petechiae. Mucous membranes are somewhat dry. No oral lesions noted. Dentition in fair repair. No sinus process, tenderness, or discharge from the nares. NECK: Supple. No cervical or supraclavicular lymphadenopathy. CARDIOVASCULAR: S1, S2. Difficult to hear heart sounds secondary to adventitious noises. LUNGS: Diminished breath sounds bilaterally with no audible wheezes. ABDOMEN: Obese, soft, no tenderness to palpation. The patient has a Treviño catheter in place. EXTREMITIES: The right lower extremity is mildly swollen compared with the left. There is beet red erythema along the pretibial area that is almost circumferential. There are no bullae. There is no hypoesthesia. The erythema skips the patient's knee and then there is a small patch above his knee. There is no significant tenderness to palpation of the muscle belly of the gastrocnemius muscle, or the muscles of his leg. The erythema spares the patient's foot where there is a notable nickel sized ulceration on the dorsum of the foot that is packed with Hydrofera Blue. This was removed and reveals excellent granulation tissue beneath with no obvious evidence of infection. The plantar aspects of his feet are notable for lichenified skin, but sensation is intact throughout. The left lower extremity is underwhelming say for the lichenification of the plantar aspects of his feet and onychomycosis bilaterally. SKIN: As outlined above. Also notable for multiple ecchymotic and bruises in his upper extremities. The patient has a right subclavian noted. NEUROLOGIC: He is alert and oriented x3. He is moving all 4 extremities. No loss of sensation. LABORATORY DATA: An ultrasound of his right lower extremity is unrevealing. White blood cell count of 31, down from 40, hematocrit 36, platelet count of 327 , 89% neutrophils. BUN and creatinine 31/1.2, slightly up from 1.0 yesterday. The patient's baseline is around 0.9. AST 33, ALT 34, alkaline phosphatase 100 , albumin of 3. MICROBIOLOGIC DATA: Blood cultures x2 are pending. Previous foot swab with Staphylococcus pseudo intermedius, no susceptibilities, and 3+ Aide albicans. IMPRESSION: 67-year-old male with multiple medical problems including severe COPD, not on corticosteroids, type 2 diabetes mellitus, and a chronic right lower extremity ulceration, admitted with severe right lower extremity cellulitis of abrupt onset with sepsis. Although the patient is hypotensive and requiring pressors, he does not look toxic, and my clinical suspicion for necrotizing fasciitis/ pyomyositis is low. Given abrupt onset, suspect streptococcal etiology but given his diabetes mellitus, he is at risk for a polymicrobial process. There is no history of MRSA. The patient did have a wound culture in October that grew Staphylococcus pseudointermedius, an organism that that he likely acquired from his dog. Susceptibilities could not be performed on this pathogen. PLAN: 1. Patient's right lower extremity needs to be elevated as much as possible above his heart. 2. Hold off on additional imaging at this point in time, such as CT or MRI given low clinical suspicion for necrotizing fasciitis, or pyomyositis. 3. Continue Piperacillin/tazobactam at present dose and will add Linezolid 600 mg p.o. q.12 hours to reduce toxin production in the setting of high clinical suspicion for a streptococcal etiology.(infectious disease service is favoring the use of linezolid over clindamycin given increasing resistance of streptococci with clindamycin) May be able to use cefazolin alone moving forward, but for now, continue Zosyn and linezolid pending clinical improvement. Reviewed drug interactions with linezolid, and there are none other than glipizide, which will be changed to sliding-scale insulin. Thank you very much for consulting Infectious Disease. We will continue to follow with you. /[id number]/MODL MTDD
[2018-01-13] MEDS: TIOTROPIUM INHALER 18 MCG/DOSE 5 DOSE/MDI IH SCH (10:32)
[2018-01-13] MEDS: ALBUTEROL 3 ML DEYVIAL IH PRN ×3 (10:54→23:27)
--- NOTE | 2018-01-13 13:56 | GCON ---
[f rep st] CONSULTATION CRITICAL CARE CONSULTATION. DATE OF CONSULTATION: 01/13/2018 HISTORY OF PRESENT ILLNESS: This patient is a 67-year-old male with a history of severe COPD and hig h oxygen requirement at 8 L per minutes who was admitted with cellulitis from the [facility]. He had a nonhealing wound that was quite small and saw Dr. Thomas in routine followu p on [facility]. Things were stable then. This wound looked quite well; however, he woke up early yesterday morning with fevers and discomfort in his leg and was evaluated in the [facility] yesterday. An ultrasound was done, which showed no evidence of DVT, but he had substantial erythema in his leg and a well documented fever. He was given multiple antibiotics, but his blood pressure was low. He was given IV fluids and treated with Levophed. He had approximately 6 L of fluid given to him with no change in his blood pressure, but stabilized on Levophed. Blood cultures have been negative, and since he has been at [facility], he said he feels better. His blood pressure has been stable, but remains on 10 mcg of Levophed. PAST MEDICAL HISTORY: Includes diabetes, diabetic foot wounds as described above, COPD and severe hy poxemia using 8 L/minute, coronary artery disease with 2 stents. SOCIAL HISTORY: Quit smoking quite a while ago. Does drink about 3 drinks per day. FAMILY HISTORY: Includes lung cancer. MEDICATIONS: At this time, includes albuterol nebs, calcitriol, Pepcid, glipizide, linezolid, norepi nephrine, Zofran, Zosyn, Pravachol, Spiriva, vasopressin, Ambien. PHYSICAL EXAMINATION: VITAL SIGNS: His T-max since he has been at [facility] is 38, T current 37.1. His blood pressure is 114/69, heart rate 84, respirations 19 oxygen saturation 100% o n 2 L high-flow nasal cannula which he is frequently using in his mouth or his nose. GENERAL: He wa s awake and alert, oriented x3 no apparent distress, though he did appear to be using accessory muscl es for breathing. HEENT: Pupils equally round and reactive to light. Nonicteric and noninjected. Mucous membranes moist without erythema or exudate. NECK: Supple without adenopathy or jugular vein distention. CHEST: Breath sounds were diminished but clear to auscultation bilaterally without whe ezes, rubs, or rales. HEART: Regular rate and rhythm without murmurs, rubs, or gallops. ABDOMEN: Soft, nontender, nondistended without hepatosplenomegaly. EXTREMITIES: His right lower extremity sh owed substantial and tender erythema that was well demarcated with a sharpie with some associated megan ma left side, but showed no evidence of infection. NEUROLOGIC: Nonfocal. LABORATORY DATA: White count of 40, which is down to 31 today, hematocrit 36, platelets 327. Unrema rkable basic metabolic panel. Albumin of 3. BNP was 10,200. ASSESSMENT/PLAN: 1. Severe cellulitis resulting in septic shock. He is being treated appropriately at the moment wit h blood pressure support after fluid resuscitation. Dr. Good from Infectious Disease saw him today as well, who suggested continuing Zosyn and she added the linezolid today and will watch closely for evidence of compartment syndrome or necrotizing fasciitis, neither of which applies at the moment. 2. Chronic obstructive pulmonary disease. He was using short-acting muscarinic agents and tried him on Spiriva today. He will continue to use albuterol as needed. He gets Dulera at home. His i s bring that in for him now. I do not believe systemic steroids would be useful at this time. 3. Severe hypoxemia. He has a very high baseline requirement and feels this is relatively stable. Will maintain his oxygen saturation between 90% and 95%. /[id number]/MODL
--- NOTE | 2018-01-13 15:18 | ASMTCMCOM ---
CM Note CM Note Notes: Patient reviewed in rounds. 67 Year old male admitted with sepsis and cellulitis. HX includes COPD, CAD, diabetes and non-healing wounds. He has high oxygen needs He is followed in the wound clinic by Dr. Thomas and was current with [facility]. Currently on IV antibiotics and vasopressin. His son Don's number is [phone] and is his proxy. CM to follow. Needs to be determined Plan: TBD Date Signed: 01/13/2018 03:18 PM Electronically Signed By:Flor Wolff RN
[2018-01-13] MEDS ORDERED: VASOPRESSIN 25 UNIT in NS 250 ML IV SCH (16:00)
--- NOTE | 2018-01-13 16:14 | HOSPPROG ---
Hospitalist Progress Note Assessment/Plan: ASSESSMENT: 67 yo M with hx of DM with diabetic foot ulcer presenting with cellulitis, septic shock # septic shock: with source presumed to be cellulitis, on NE and vasopressin to maintain maps. Abx as next, blood cultures with ngtd. # RLE cellulitis: in the setting of chronic lower extremity ulceration as well as venous stasis, appreciate ID input, current abx include linezolid and zosyn, elevation, wound care. Holding off on further imaging for now. # GIANNI: UOP remains low but bun/creat relatively stable, continue to monitor with pressor support, nascimento in place for accurate I/Os # severe copd: appears currently at baseline, continue usual meds, appreciate pulm input # acute on chronic hypoxic respiratory failure: at baseline on 8L and currently up to 12L, will monitor closely given IV fluids and relatively immobile # DM2: sliding scale # anemia: monitoring, has been present for last year # IP status Care plan reviewed with Dr. Collins and multidisciplinary care team. > 30 min of critical care time spent with this patient Subjective: patient feeling a bit better today but very fatigued, no acute events Objective: Vital Signs Temp Pulse Resp BP Pulse Ox 37.3 C 87 25 H 111/67 93 01/13/18 13:00 01/13/18 15:00 01/13/18 15:00 01/13/18 15:00 01/13/18 15:00 Laboratory Results 01/13/18 05:15 01/13/18 05:15 01/12/18 01/13/18 01/14/18 05:59 05:59 05:59 Intake Total 8290 Output Total 600 Balance 7690 PT 21.6 SEC (12.0-15.0) H 01/13/18 05:15 INR 1.87 (0.83-1.16) H 01/13/18 05:15 awake alert anicteric op clear rrr no mrg cta b soft nt nd rle erythema/edema ttp warm dry well perfused oriented appropriate ICD10 Worksheet Patient Problems: Problems Problem Status Onset Severe sepsis Acute Chronic obstructive pulmonary disease with acute exacerbation Acute Finger laceration Acute Diabetic foot ulcer Acute Anemia due to acute blood loss Acute COPD (chronic obstructive pulmonary disease) Acute Hx of coronary artery disease Acute Cellulitis Acute
[2018-01-13] MEDS: CALCITRIOL 0.25 MCG CAP PO SCH (18:56)
[2018-01-13] MEDS: POTASSIUM CL 20 MEQ TAB PO SCH (21:33)
[2018-01-14] MEDS: CALCITRIOL 0.25 MCG CAP PO SCH (04:55)
[2018-01-14] MEDS: HEPARIN 5,000 UNIT/0.5 ML INJ SC SCH ×3 (05:31→21:00)
[2018-01-14] MEDS: PIPERACILLIN SODIUM/TAZOBACTAM 3.375 GM in D5W 50 ML IV SCH (05:31)
[2018-01-14] MEDS: LINEZOLID 600 MG TAB PO SCH ×2 (07:44→21:01)
[2018-01-14] MEDS: FAMOTIDINE 20 MG TAB PO SCH (07:44)
[2018-01-14] MEDS: glipiZIDE 10 MG TAB PO SCH ×2 (08:13→18:03)
[2018-01-14] MEDS: TIOTROPIUM INHALER 18 MCG/DOSE 5 DOSE/MDI IH SCH (08:24)
[2018-01-14] MEDS: SODIUM FERRIC GLUCONAT/SUCROSE 125 MG in NS 100 ML IV SCH (08:25)
[2018-01-14] MEDS: ALBUTEROL 3 ML DEYVIAL IH PRN ×3 (08:27→20:29)
[2018-01-14 08:51] LABS: PLATELET COUNT 263 10^3/uL (150-400)
[2018-01-14] MEDS ORDERED: hydrALAZINE 20 MG/ML VIAL IVP PRN (09:07)
--- NOTE | 2018-01-14 10:06 | PCMIDPN ---
Assessment/Plan: Assessment/Plan: * Septic shock due to right lower extremity cellulitis: Clinically improved with weaning of pressors. Will transition Zosyn to cefazolin given blood cultures are negative in appearance suggestive of beta-hemolytic streptococci. Continue linezolid 1 additional day for activity against toxin production. Of note, if pressors require resumption linezolid can potentiate effect. Continue lower extremity elevation. Follow clinical response over time with anticipated several date time frame for resolution. 01/14/18 10:02 Subjective: Patient feels clinically improved. Some residual right lower extremity discomfort. Objective: Vital Signs Temp Pulse Resp BP Pulse Ox 36.7 C 86 20 109/72 95 01/14/18 08:30 01/14/18 08:30 01/14/18 08:30 01/14/18 06:00 01/14/18 08:30 Laboratory Results 01/14/18 08:30 01/14/18 08:30 01/13/18 01/14/18 01/15/18 05:59 05:59 05:59 Intake Total 8290 2815.2 Output Total 600 1275 Balance 7690 1540.2 Piperacillin/tazobactam # 2 Linezolid # 2 Blood cultures x2 no growth - Physical Exam General Appearance: alert, no apparent distress EENT: dry mucous membranes, No scleral icterus Respiratory: wheezing Cardiac/Chest: regular rate, rhythm Extremities: inflammation (Right lower extremity with circumferential erythema from ankle to knee; no progression past demarcated line; no bulla or areas of crepitus/fluctuance; warmth and tenderness present) Abdomen: non-tender, distended (Mild) Skin: other (Ulceration on dorsal aspect of right foot with clean base and no surrounding erythema or purulence) ICD10 Worksheet Patient Problems: Problems Problem Status Onset Cellulitis Acute Severe sepsis Acute Anemia due to acute blood loss Acute COPD (chronic obstructive pulmonary disease) Acute Chronic obstructive pulmonary disease with acute exacerbation Acute Diabetic foot ulcer Acute Finger laceration Acute Hx of coronary artery disease Acute
--- NOTE | 2018-01-14 10:43 | WOCRNPDOC ---
WOCRN Advanced Assessment Note - Skin Integrity Problem, Advanced Assess Right Dorsal Foot Dressing Type: Allevyn Life, Hydrofera Blue Ready Dressing Description: Clean/Dry, Intact, Shadowed Exudate Amount: Moderate Exudate Characteristic(s): Serosanguinous Integumentary Issue Intervention: Dressing Changed Dania Wound Tissue: Erythema, Xerotic, Crusted, Hyperkeratotic [place] Wound Swelling: None Wound Bed Color: Red Wound Bed Constitution: Granulation Tissue (100%) Wound Edges: Epithelizing (from 9-2 oclock), Attached, Thick (from 3 to 9 oclock ) Site Odor: Moderate, Musky Site Measurement - Head-to-Toe Length X Width X Depth (cm): 3.1x2.3x0.5 Pulse Location & Description: DP bilaterally 2+ Extremity Temperature: Warm Peripheral Edema Location & Description: 1+ right foot Skin Integrity Problem Comment: Traumatic wound from patient dropping plywood on his foot a couple of months ago. Patient sees outpatient wound healing center on a regular basis. Toe nails with onychomycosis. Wound healing well and outpatient plan will be continued. Patient to follow up at outpatient wound healing center per his previously scheduled appointments. Wound care will round again next week.
--- NOTE | 2018-01-14 13:20 | PDINTPN ---
[employer] Progress Note Assessment/Plan: Assessment/plan: 67 M with end stage COPD and FEV1 of 32% predicted, long standing severe and poorly controlled hypoxemia on baseline O2 of 8 lpm, as well as chronic RLE cellulitis admitted to [facility] 01/12 with acute onset of rigors and increasing LE pain. He was sen by Dr. Thomas in wound care clinic shortly before admission and was doing well at that time. However, at urgent care he had a WBC of 40 and was hypotensive requiring pressors. He was treated for acute on chronic cellulitis cellulitis with Ancef and Zyvox while US ruled out DVT. His oxygen requirements remain high and he desaturates with minimal activity but he has no major respiratory complaints. * Septic shock from NHW/recurrent cellulitis. His wbc has improved substantially and he remains afebrile. Blood cultures are NTD and his tenderness is resolving with a low CK making nec fasciitis unlikely. Continue abx * Hypotension- levophed off AM of 01/14- observe in SDU/ICU today * COPD- he was using Dulera and duoneb or atrovent 3-4 daily as an outpatient. Changed to spiriva 01/13 for better long acting muscarinic control with ongoing prn beta-agonist. Emileull defer to Dr. Wilcox for additional management, but could consider pulmonary rehab if not already done. * Hx erythrocytosis, likely related to oxygen non-compliance. His hct have remained stable and phlebotomy not indicated at this time. * Subjective: reports improvement since yesterday Objective: Vital Signs Temp Pulse Resp BP Pulse Ox 36.7 C 86 20 109/72 95 01/14/18 08:30 01/14/18 08:30 01/14/18 08:30 01/14/18 06:00 01/14/18 08:30 Laboratory Results 01/14/18 08:30 01/14/18 08:30 01/13/18 01/14/18 01/15/18 05:59 05:59 05:59 Intake Total 8290 2815.2 Output Total 600 1275 Balance 7690 1540.2 PT 21.6 SEC (12.0-15.0) H 01/13/18 05:15 INR 1.87 (0.83-1.16) H 01/13/18 05:15 Physical Exam - Physical Exam General Appearance: alert, no apparent distress EENT: PERRL/EOMI Neck: supple Respiratory: lungs clear, normal breath sounds, decreased breath sounds, No respiratory distress, No accessory muscle use, No rales, No wheezing Cardiac/Chest: regular rate, rhythm, edema Abdomen: non-tender, soft, No distended Skin: warm/dry, other (RLE erythema reduced but still substantial), No cyanosis Lymphatic: no adenopathy Extremities: pedal edema Neuro/Psych: alert, normal mood/affect, oriented x 3 ICD10 Worksheet Patient Problems: Problems Problem Status Onset Cellulitis Acute Severe sepsis Acute Anemia due to acute blood loss Acute COPD (chronic obstructive pulmonary disease) Acute Chronic obstructive pulmonary disease with acute exacerbation Acute Diabetic foot ulcer Acute Finger laceration Acute Hx of coronary artery disease Acute
[2018-01-14] MEDS: ceFAZolin 2 GM/DEXTROSE 100 ML IV SCH ×2 (14:04→21:01)
--- NOTE | 2018-01-14 14:40 | HOSPPROG ---
Hospitalist Progress Note Assessment/Plan: ASSESSMENT: 67 yo M with hx of DM with diabetic foot ulcer presenting with cellulitis, septic shock # septic shock: with source presumed to be cellulitis, weaned off of pressors and stable thus far. Abx as next, blood cultures with ngtd. # RLE cellulitis: in the setting of chronic lower extremity ulceration as well as venous stasis, appreciate ID input, current abx include linezolid and zosyn, elevation, wound care. Appears stable to relatively improved. # GIANNI: UOP remains low but bun/creat relatively stable, continue to monitor with pressor support, nascimento in place for accurate I/Os # severe copd: appears currently at baseline, continue usual meds, appreciate pulm input # acute on chronic hypoxic respiratory failure: at baseline on 8L and initially requiring 12l but now trending down to 10L today, will monitor closely given IV fluids and relatively immobile # DM2: sliding scale # anemia: monitoring, has been present for last year # IP status Care plan reviewed with Dr. Collins and multidisciplinary care team. > 30 min of critical care time spent with this patient Subjective: no significant overnight events , patient feeling better today Objective: Vital Signs Temp Pulse Resp BP Pulse Ox 36.7 C 79 21 H 106/67 96 01/14/18 12:00 01/14/18 12:00 01/14/18 12:00 01/14/18 12:00 01/14/18 12:00 Laboratory Results 01/14/18 08:30 01/14/18 08:30 01/13/18 01/14/18 01/15/18 05:59 05:59 05:59 Intake Total 8290 2815.2 Output Total 600 1275 Balance 7690 1540.2 PT 21.6 SEC (12.0-15.0) H 01/13/18 05:15 INR 1.87 (0.83-1.16) H 01/13/18 05:15 awake alert anicteric op clear rrr no mrg cta b soft nt nd rle erythema/edema ttp warm dry well perfused oriented appropriate ICD10 Worksheet Patient Problems: Problems Problem Status Onset Cellulitis Acute Severe sepsis Acute Anemia due to acute blood loss Acute COPD (chronic obstructive pulmonary disease) Acute Chronic obstructive pulmonary disease with acute exacerbation Acute Diabetic foot ulcer Acute Finger laceration Acute Hx of coronary artery disease Acute
[2018-01-14] MEDS: POTASSIUM CL 20 MEQ TAB PO SCH (21:01)
[2018-01-14] MEDS: PRAVASTATIN SODIUM 10 MG TAB PO SCH (21:01)
[2018-01-15] MEDS: HEPARIN 5,000 UNIT/0.5 ML INJ SC SCH ×3 (05:01→21:31)
[2018-01-15] MEDS: ceFAZolin 2 GM/DEXTROSE 100 ML IV SCH (05:01)
[2018-01-15 05:20] LABS: PLATELET COUNT 250 10^3/uL (150-400)
[2018-01-15] MEDS: CALCITRIOL 0.25 MCG CAP PO SCH (08:13)
[2018-01-15] MEDS: LINEZOLID 600 MG TAB PO SCH (08:13)
[2018-01-15] MEDS: FAMOTIDINE 20 MG TAB PO SCH (08:13)
[2018-01-15] MEDS: glipiZIDE 10 MG TAB PO SCH (08:13)
[2018-01-15] MEDS: SODIUM FERRIC GLUCONAT/SUCROSE 125 MG in NS 100 ML IV SCH (08:24)
[2018-01-15] MEDS: TIOTROPIUM INHALER 18 MCG/DOSE 5 DOSE/MDI IH SCH (08:25)
[2018-01-15] MEDS ORDERED: D50W 25 GM/50 ML SYR IVP PRN (11:05)
--- NOTE | 2018-01-15 11:16 | PCMIDPN ---
Assessment/Plan: Assessment/Plan: * Septic shock due to right lower extremity cellulitis: Marked clinical improvement with significant decrease in intensity of erythema with concomitant decrease in white blood cell count. Will continue cefazolin. Will discontinue linezolid given marked improvement and likely benefit has been achieved in terms of combat adding toxin production. * Positive blood cultures for Gram-positive rods: 2/2 sets of blood cultures growing gram-positive rods in the aerobic bottles. Formal identification is currently pending. Reviewed with patient clinical exposures with no known risk for organisms such as Erysipelothrix. Corynebacterium would be other consideration although not typical cause of skin and soft tissue infection. Given improvement, will not modify antibiotic therapy currently until identification has been obtained. 01/15/18 11:12 Subjective: Patient feels significantly improved with decreased right lower extremity redness and tenderness. Objective: Vital Signs Temp Pulse Resp BP Pulse Ox 36.1 C 74 24 H 99/59 L 99 01/15/18 08:00 01/15/18 10:00 01/15/18 10:00 01/15/18 10:00 01/15/18 10:00 Laboratory Results 01/15/18 05:00 01/15/18 05:00 01/14/18 01/15/18 01/16/18 05:59 05:59 05:59 Intake Total 2815.2 1900 Output Total 1275 1175 Balance 1540.2 725 Cefazolin # 2 Linezolid # 3 Antibiotics # 3 Blood cultures 2/2 sets with gram-positive rods in the aerobic bottles - Physical Exam General Appearance: alert, no apparent distress EENT: No scleral icterus, No thrush, No conjunctival petechiae Respiratory: lungs clear, No respiratory distress Cardiac/Chest: regular rate, rhythm, No systolic murmur Extremities: inflammation (Right lower extremity erythema significantly less intense with resolved warmth and tenderness, no bulla or areas of crepitus) Skin: No embolic lesions ICD10 Worksheet Patient Problems: Problems Problem Status Onset Cellulitis Acute Severe sepsis Acute Anemia due to acute blood loss Acute COPD (chronic obstructive pulmonary disease) Acute Chronic obstructive pulmonary disease with acute exacerbation Acute Diabetic foot ulcer Acute Finger laceration Acute Hx of coronary artery disease Acute
--- NOTE | 2018-01-15 11:24 | PDINTPN ---
[facility] Progress Note Assessment/Plan: Assessment/Plan: 67 M with end stage COPD and FEV1 of 32% predicted, long standing severe and poorly controlled hypoxemia on baseline O2 of 8 - 10 lpm, as well as chronic RLE cellulitis admitted to [facility] 01/12 with acute onset of rigors and increasing LE pain. He was sen by Dr. Thomas in wound care clinic shortly before admission and was doing well at that time. However, at urgent care he had a WBC of 40 and was hypotensive requiring pressors. He was treated for acute on chronic cellulitis cellulitis with Ancef and Zyvox while US ruled out DVT. His oxygen requirements remain high and he desaturates with minimal activity but he has no major respiratory complaints. * Septic shock from NHW/recurrent cellulitis. GPCs in blood, ID/sens pending. WBC improved, leg looks significantly better, with markedly decreased areas of erythema, but still with tense edema on the right. Continue abx per ID. * Hypotension- resolved. Levophed stopped yesterday. Blood pressure is acceptable. * COPD- he was using Dulera and duoneb 3-4 daily as an outpatient. Changed to spiriva 01/13 for better long acting muscarinic control. * Hx erythrocytosis, likely related to oxygen non-compliance. HCT 35. * DVT prophylaxis: On subcu heparin * Metabolic: Glucose is low this morning, improved with eating. Glyburide held. Will follow glucoses more closely. 30 min of critical care time spent directly with the patient. Discussed with nursing, id, hospitalist, in the ICU multi disciplinary team. Can transfer from ICU to step-down unit status. Objective: Vital Signs Temp Pulse Resp BP Pulse Ox 36.1 C 74 24 H 99/59 L 99 01/15/18 08:00 01/15/18 10:00 01/15/18 10:00 01/15/18 10:00 01/15/18 10:00 Laboratory Results 01/15/18 05:00 01/15/18 05:00 01/14/18 01/15/18 01/16/18 05:59 05:59 05:59 Intake Total 2815.2 1900 Output Total 1275 1175 Balance 1540.2 725 PT 21.6 SEC (12.0-15.0) H 01/13/18 05:15 INR 1.87 (0.83-1.16) H 01/13/18 05:15 ICD10 Worksheet Patient Problems: Problems Problem Status Onset Cellulitis Acute Severe sepsis Acute Anemia due to acute blood loss Acute COPD (chronic obstructive pulmonary disease) Acute Chronic obstructive pulmonary disease with acute exacerbation Acute Diabetic foot ulcer Acute Finger laceration Acute Hx of coronary artery disease Acute
[2018-01-15] MEDS: INSULIN LISPRO 100 UNIT/ML SC SCH ×2 (12:50→17:53)
[2018-01-15] MEDS: VANCOMYCIN 1.5 GM in D5W 250 ML IV SCH (14:24)
--- NOTE | 2018-01-15 15:10 | ASMTCMCOM ---
CM Note CM Note Notes: Therapies recommending SNF Rehab. Spoke to patient who is concerned that he might have a $50 co-payment if he goes to a SNF. I asked if I could contact Sushil and Jennifer and they could research Ins benefit for SNF. He agreed-referrals sent. Patient lives alone and can't count on support from ex or son. Date Signed: 01/15/2018 03:09 PM Electronically Signed By:Ashley Martins LCSW
--- NOTE | 2018-01-15 16:10 | HOSPPROG ---
Hospitalist Progress Note Assessment/Plan: ASSESSMENT: 67 yo M with hx of DM with diabetic foot ulcer presenting with cellulitis, septic shock # septic shock: with source presumed to be cellulitis, weaned off of pressors and remains stable. Abx as next, blood cultures with ngtd. # RLE cellulitis: in the setting of chronic lower extremity ulceration as well as venous stasis, appreciate ID input, blood cultures now with GPR/ corynebacterium--started on vanco (previously abx from this stay: zosyn, linezolid and ancef). Leg appears significantly improved today # corynebacterium bacteremia: as above, appreciate ID # GIANNI: UOP improved, creatinine stable # severe copd: appears currently at baseline, continue usual meds, appreciate pulm input # acute on chronic hypoxic respiratory failure: at baseline on 8L and initially requiring 12l but now trending down to 10L and stable # DM2: was on glyburide and metformin as an OP, only glyburide here but today with persistent low glucose--now improved with eating. Held glyburide, monitoring sugars more closely, will check A1c. # anemia: monitoring, has been present for last year # IP status Care plan reviewed with Dr. Wilcox and multidisciplinary care team. > 30 min critical care time spent in above Subjective: no significant overnight events, patient hypoglycemic this am to 40s Objective: Vital Signs Temp Pulse Resp BP Pulse Ox 36.1 C 87 20 117/67 93 01/15/18 08:00 01/15/18 12:00 01/15/18 12:00 01/15/18 12:00 01/15/18 12:00 Laboratory Results 01/15/18 05:00 01/15/18 05:00 01/14/18 01/15/18 01/16/18 05:59 05:59 05:59 Intake Total 2815.2 1900 Output Total 1275 1175 Balance 1540.2 725 PT 21.6 SEC (12.0-15.0) H 01/13/18 05:15 INR 1.87 (0.83-1.16) H 01/13/18 05:15 awake alert anicteric op clear rrr no mrg cta b soft nt nd rle erythema/edema ttp warm dry well perfused oriented appropriate ICD10 Worksheet Patient Problems: Problems Problem Status Onset Cellulitis Acute Severe sepsis Acute Anemia due to acute blood loss Acute COPD (chronic obstructive pulmonary disease) Acute Chronic obstructive pulmonary disease with acute exacerbation Acute Diabetic foot ulcer Acute Finger laceration Acute Hx of coronary artery disease Acute
[2018-01-15] MEDS: ALBUTEROL 3 ML DEYVIAL IH PRN (20:10)
[2018-01-15] MEDS: POTASSIUM CL 20 MEQ TAB PO SCH (21:31)
[2018-01-15] MEDS: PRAVASTATIN SODIUM 10 MG TAB PO SCH (21:31)
[2018-01-16] MEDS: VANCOMYCIN 1.5 GM in D5W 250 ML IV SCH ×2 (01:12→13:53)
[2018-01-16 04:29] LABS: PLATELET COUNT 259 10^3/uL (150-400)
[2018-01-16] MEDS: HEPARIN 5,000 UNIT/0.5 ML INJ SC SCH ×3 (06:03→21:08)
[2018-01-16] MEDS: INSULIN LISPRO 100 UNIT/ML SC SCH ×3 (07:54→19:35)
[2018-01-16] MEDS: FAMOTIDINE 20 MG TAB PO SCH (08:42)
[2018-01-16] MEDS: TIOTROPIUM INHALER 18 MCG/DOSE 5 DOSE/MDI IH SCH (08:43)
[2018-01-16] MEDS: SODIUM FERRIC GLUCONAT/SUCROSE 125 MG in NS 100 ML IV SCH (08:50)
--- NOTE | 2018-01-16 09:58 | HOSPPROG ---
Hospitalist Progress Note Assessment/Plan: ASSESSMENT: 67 yo M with hx of DM with diabetic foot ulcer presenting with cellulitis, septic shock septic shock: with source presumed to be cellulitis, weaned off of pressors and remains stable. blood cx w gpr RLE cellulitis: in the setting of chronic lower extremity ulceration as well as venous stasis, appreciate ID input, blood cultures now with GPR/corynebacterium- -started on vanco (previously abx from this stay: zosyn, linezolid and ancef). Leg appears significantly improved today corynebacterium bacteremia: as above, appreciate ID GIANNI: UOP improved, creatinine stable severe copd: appears currently at baseline, continue usual meds, appreciate pulm input acute on chronic hypoxic respiratory failure: at baseline on 8L and initially requiring 12l but now trending down to 10L and stable repeat cxr today DM2: was on glyburide and metformin as an OP, only glyburide here but today with persistent low glucose--now improved with eating. orals dc'd on ssi a1c 6 anemia: monitoring, has been present for last year IP status Care plan reviewed w multidisciplinary care team. Subjective: case d.w dr boateng. on 8L 02 at home. blood sugars improved (100) this AM Objective: Vital Signs Temp Pulse Resp BP Pulse Ox 36.4 C 82 19 110/66 100 01/16/18 04:00 01/16/18 07:53 01/16/18 07:53 01/16/18 07:53 01/16/18 07:53 Laboratory Results 01/16/18 04:00 01/16/18 04:00 01/15/18 01/16/18 01/17/18 05:59 05:59 05:59 Intake Total 1900 2257 Output Total 1175 800 100 Balance 725 1457 -100 PT 21.6 SEC (12.0-15.0) H 01/13/18 05:15 INR 1.87 (0.83-1.16) H 01/13/18 05:15 - Physical Exam Constitutional: no apparent distress, chronically ill appearing Eyes: PERRL, anicteric sclera Ears, Nose, Mouth, Throat: moist mucous membranes, hearing normal Cardiovascular: regular rate and rhythym, no murmur, rub, or gallop Respiratory: no respiratory distress, no rales or rhonchi, other (distant breath sounds) Gastrointestinal: normoactive bowel sounds, soft, non-tender abdomen Genitourinary: no bladder fullness, No nascimento in urethra Skin: warm, normal color Musculoskeletal: other (LLE w edema, redness. per nursing, improved) Neurologic: AAOx3, sensation intact bilaterally ICD10 Worksheet Patient Problems: Problems Problem Status Onset Cellulitis Acute Severe sepsis Acute Anemia due to acute blood loss Acute COPD (chronic obstructive pulmonary disease) Acute Chronic obstructive pulmonary disease with acute exacerbation Acute Diabetic foot ulcer Acute Finger laceration Acute Hx of coronary artery disease Acute
[2018-01-16] MEDS ORDERED: ALTEPLASE 2 MG VIAL IVP PRN (11:52)
--- NOTE | 2018-01-16 14:52 | PCMIDPN ---
Assessment/Plan: Assessment/Plan: * Septic shock due to right lower extremity cellulitis: Continued resolution of cellulitis. Continue treatment with vancomycin as outlined below. Continue lower extremity elevation. * Corynebacterium striatum bacteremia: 2/2 sets of blood cultures growing Corynebacterium striatum. Complex susceptibility profile possible for this species. Typically susceptible to vancomycin. Have asked lab to send out for susceptibility testing. Continue vancomycin with plan trough tomorrow. Continue to follow renal function. Will place PICC line so that triple-lumen catheter can be removed with anticipated 2 week course of treatment for bacteremia. 01/16/18 14:49 01/16/18 14:51 Subjective: Patient notes significant decrease in pain in right lower extremity and overall feels markedly improved. Objective: Vital Signs Temp Pulse Resp BP Pulse Ox 36.4 C 82 17 116/76 82 L 01/16/18 11:36 01/16/18 11:36 01/16/18 11:36 01/16/18 11:36 01/16/18 14:05 Laboratory Results 01/16/18 04:00 01/16/18 04:00 01/15/18 01/16/18 01/17/18 05:59 05:59 05:59 Intake Total 1900 2257 350 Output Total 1175 800 200 Balance 725 1457 150 Vancomycin # 1 Antibiotics # 4 Blood cultures 2/2 Corynebacterium striatum - Physical Exam General Appearance: alert, no apparent distress EENT: No scleral icterus, No conjunctival petechiae Respiratory: lungs clear, No respiratory distress Cardiac/Chest: regular rate, rhythm, No systolic murmur Extremities: inflammation (Significant decrease in erythema with faint residual present; no warmth with minimal tenderness over lateral lower extremity) Abdomen: non-tender, No distended Skin: No embolic lesions ICD10 Worksheet Patient Problems: Problems Problem Status Onset Cellulitis Acute Severe sepsis Acute Anemia due to acute blood loss Acute COPD (chronic obstructive pulmonary disease) Acute Chronic obstructive pulmonary disease with acute exacerbation Acute Diabetic foot ulcer Acute Finger laceration Acute Hx of coronary artery disease Acute
--- NOTE | 2018-01-16 15:46 | PDRADPN ---
Radiology Procedure Note Date of Procedure: 01/16/18 Radiologist: James Motta Anesthesia: Local (Specify) Pre-op Diagnosis: infection Post-op Diagnosis: same Indication: lonog term abx Procedure: RUE SL PICC Finding(s): patent brachial vein access. 44cm to cavoatrial junction. SL power picc ok to use. Inf/Abcess present in the surg proc area at time of surgery?: No EBL: Minimal Complications: none
--- NOTE | 2018-01-16 18:44 | SOAPPROG ---
SOAP Progress Note Assessment/Plan: Assessment/Plan: 67 M with end stage COPD and FEV1 of 32% predicted, long standing severe and poorly controlled hypoxemia on baseline O2 of 8 - 10 lpm, as well as chronic RLE cellulitis admitted to [facility] 01/12 with acute onset of rigors and increasing LE pain. He was sen by Dr. Thomas in wound care clinic shortly before admission and was doing well at that time. However, at urgent care he had a WBC of 40 and was hypotensive requiring pressors. He was treated for acute on chronic cellulitis cellulitis with Ancef and Zyvox while US ruled out DVT. His oxygen requirements remain high and he desaturates with minimal activity but he has no major respiratory complaints. * Septic shock from NHW/recurrent cellulitis. Corynebacterium in blood. Leg better, with resolved areas of erythema, but still quite edematous on the right. Continue abx per ID. * Hypotension- Resolved. Off Levophed. Blood pressure now fine. * COPD- he was using Dulera and duoneb 3-4 daily as an outpatient. Changed to spiriva 01/13 for better long acting muscarinic control. Increased cough with some increased dyspnea today. Will adjust medications, restarting duo nebs and adding Mucinex. * Hx erythrocytosis, likely related to oxygen non-compliance. HCT 35. * DVT prophylaxis: On subcu heparin * Metabolic: Glucoses normal. Glyburide held. Follow. Subjective: Somewhat more short of breath today, with increased cough. Leg feels better. Objective: Vital Signs Temp Pulse Resp BP Pulse Ox 36.4 C 82 15 116/76 98 01/16/18 11:36 01/16/18 15:14 01/16/18 15:14 01/16/18 11:36 01/16/18 15:14 Laboratory Results 01/16/18 04:00 01/16/18 04:00 01/15/18 01/16/18 01/17/18 05:59 05:59 05:59 Intake Total 1900 2257 1000 Output Total 1175 800 700 Balance 725 1457 300 PT 21.6 SEC (12.0-15.0) H 01/13/18 05:15 INR 1.87 (0.83-1.16) H 01/13/18 05:15 CXR: Increased markings at the bases, no infiltrates. Physical Exam - Physical Exam General Appearance: alert, obese, other (Up in chair) EENT: PERRL/EOMI, other (Nasal cannula at 10 L) Neck: normal inspection Respiratory: lungs clear (Anteriorly), decreased breath sounds (At bases), rhonchi (Few rhonchi present centrally with cough), prolonged expiration, No wheezing Cardiac/Chest: regular rate, rhythm Abdomen: normal bowel sounds, non-tender, soft (Overweight) Skin: warm/dry Extremities: pedal edema (Present bilaterally, right greater than left), swelling (On the right lower extremity appears to be somewhat better) Neuro/Psych: no motor/sensory deficits, No cognition abnormalities ICD10 Worksheet Patient Problems: Problems Problem Status Onset Severe sepsis Acute Chronic obstructive pulmonary disease with acute exacerbation Acute Finger laceration Acute Diabetic foot ulcer Acute Anemia due to acute blood loss Acute COPD (chronic obstructive pulmonary disease) Acute Hx of coronary artery disease Acute Cellulitis Acute
[2018-01-16] MEDS: IPRATROPIUM/ALBUTEROL 3 ML DEYVIAL IH SCH (20:10)
[2018-01-16] MEDS: guaiFENesin 600 MG TAB.ER PO SCH (21:08)
[2018-01-16] MEDS: POTASSIUM CL 20 MEQ TAB PO SCH (21:08)
[2018-01-16] MEDS: PRAVASTATIN SODIUM 10 MG TAB PO SCH (21:08)
[2018-01-17] MEDS: VANCOMYCIN 1.5 GM in D5W 250 ML IV SCH ×2 (02:05→14:42)
[2018-01-17 04:17] LABS: PLATELET COUNT 291 10^3/uL (150-400)
[2018-01-17] MEDS: IPRATROPIUM/ALBUTEROL 3 ML DEYVIAL IH SCH ×4 (05:34→20:42)
[2018-01-17] MEDS: HEPARIN 5,000 UNIT/0.5 ML INJ SC SCH ×2 (05:41→15:46)
--- NOTE | 2018-01-17 10:09 | PCMIDPN ---
Assessment/Plan: Assessment: Right lower extremity cellulitis and septic shock. Shock is resolved. Patient now on vancomycin monotherapy for corynebacterium striatum sepsis and bacteremia. Anticipated 2 week course. Patient now has a PICC line in place. Still needing 8 L of oxygen. This is his baseline. Occasionally needing up to 12 L. His edema in his right lower extremity although asymmetric at baseline is a bit more than is normal. Anticipating vanc trough later this afternoon. Plan: 1. Continue IV vancomycin monotherapy. 2. Follow up on vancomycin trough later today. 3. Follow up on corynebacterium striatum sensitivity panel. 4. Anticipate 1-2 more days of hospitalization secondary to significant chronic comorbidities. 01/17/18 09:50 01/17/18 10:14 Subjective: Patient is ambulating slowly around his room to the bathroom. He is getting very short of breath with minimal exertion. States that his right lower extremity is less swollen and less painful. No fevers or chills. Tolerating vancomycin without rash or other issue. Objective: Vancomycin # 2 (# 5) Vital Signs Temp Pulse Resp BP Pulse Ox 36.6 C 85 18 107/69 95 01/17/18 07:46 01/17/18 07:46 01/17/18 07:46 01/17/18 07:46 01/17/18 07:46 Laboratory Results 01/17/18 04:10 01/17/18 08:25 01/16/18 01/17/18 01/18/18 05:59 05:59 05:59 Intake Total 2257 1700 Output Total 800 1575 Balance 1457 125 - Physical Exam General Appearance: WD/WN, alert, apparent distress (Mild to moderate respiratory distress), non-toxic Respiratory: lungs clear, normal breath sounds, No crackles Cardiac/Chest: regular rate, rhythm, No tachycardia Extremities: non-tender, swelling, erythema, No normal inspection Skin: normal color, warm/dry, No rash ICD10 Worksheet Patient Problems: Problems Problem Status Onset Cellulitis Acute Severe sepsis Acute Anemia due to acute blood loss Acute COPD (chronic obstructive pulmonary disease) Acute Chronic obstructive pulmonary disease with acute exacerbation Acute Diabetic foot ulcer Acute Finger laceration Acute Hx of coronary artery disease Acute
[2018-01-17] MEDS: guaiFENesin 600 MG TAB.ER PO SCH ×2 (10:26→20:16)
[2018-01-17] MEDS: FAMOTIDINE 20 MG TAB PO SCH (10:26)
[2018-01-17] MEDS: INSULIN LISPRO 100 UNIT/ML SC SCH ×3 (10:26→19:15)
[2018-01-17] MEDS: SODIUM FERRIC GLUCONAT/SUCROSE 125 MG in NS 100 ML IV SCH (10:32)
[2018-01-17] MEDS: TIOTROPIUM INHALER 18 MCG/DOSE 5 DOSE/MDI IH SCH (10:45)
--- NOTE | 2018-01-17 11:00 | ASMTCMCOM ---
CM Note CM Note Notes: 01/17/2018 Case Management Note Discussed with Infectious Disease MD. Pt will require 2 weeks of IV vanco. PT is recommending SNF. Per [facility] copays are as follows: [facility] AARP Plan 2 Active As of 01/16/18: 0/100 SNF days have been used Co-pay: Days 1-20 = $0.00/day Days 21-51 = $160.0/day Days 52-100 = $0.00/day No Deductible OOP; $4400 - Met: $2033.44 - Will pay at 100% once OOP is met Follows Calendar Year. Discussed above with pt. Pt prefers to return home and is attempting to find a family member or friend to stay with him at d/c. At pt request faxed referral to [facility] for pricing on copays for infusion after d/c. Explained to pt that his cheapest option will be to d/c to SNF. Pt is concerned about cost of kenneling his dog. His dog is currently staying with his son. Case Mangement d/c poc: to be determined. Case Management to follow. Date Signed: 01/17/2018 11:00 AM Electronically Signed By:Yesenia Cunha RN
--- NOTE | 2018-01-17 13:13 | HOSPPROG ---
Hospitalist Progress Note Assessment/Plan: ASSESSMENT: 67 yo M with hx of DM with diabetic foot ulcer presenting with cellulitis, septic shock septic shock: with source presumed to be cellulitis, weaned off of pressors and remains stable. blood cx w gpr RLE cellulitis: in the setting of chronic lower extremity ulceration as well as venous stasis, appreciate ID input, blood cultures now with GPR/corynebacterium- -started on vanco (previously abx from this stay: zosyn, linezolid and ancef). Leg appears significantly improved today corynebacterium bacteremia: as above, appreciate ID GIANNI: UOP improved, creatinine stable severe copd: appears currently at baseline, continue usual meds, appreciate pulm input edema: diurese 2/2 pulm htn from severe copd acute on chronic hypoxic respiratory failure: at baseline on 8L and initially requiring 12l but now trending down to 10L and stable repeat cxr today DM2: was on glyburide and metformin as an OP, only glyburide here but today with persistent low glucose--now improved with eating. orals dc'd on ssi a1c 6 anemia: monitoring, has been present for last year IP status Care plan reviewed w multidisciplinary care team. Subjective: case discussed w dr russell. cxr w no infiltrate (interp by me) Objective: Vital Signs Temp Pulse Resp BP Pulse Ox 36.7 C 83 19 107/64 89 L 01/17/18 11:28 01/17/18 11:28 01/17/18 11:28 01/17/18 11:28 01/17/18 11:28 Laboratory Results 01/17/18 04:10 01/17/18 08:25 01/16/18 01/17/18 01/18/18 05:59 05:59 05:59 Intake Total 2257 1700 Output Total 800 1575 Balance 1457 125 PT 21.6 SEC (12.0-15.0) H 01/13/18 05:15 INR 1.87 (0.83-1.16) H 01/13/18 05:15 - Physical Exam Constitutional: no apparent distress, appears nourished Eyes: PERRL, anicteric sclera Ears, Nose, Mouth, Throat: moist mucous membranes, hearing normal Cardiovascular: regular rate and rhythym, no murmur, rub, or gallop, edema Respiratory: no respiratory distress, no rales or rhonchi Gastrointestinal: normoactive bowel sounds, soft, non-tender abdomen Genitourinary: no bladder fullness, No nascimento in urethra Skin: warm, normal color Musculoskeletal: full muscle strength, no muscle tenderness Neurologic: AAOx3 Psychiatric: interacting appropriately ICD10 Worksheet Patient Problems: Problems Problem Status Onset Cellulitis Acute Severe sepsis Acute Anemia due to acute blood loss Acute COPD (chronic obstructive pulmonary disease) Acute Chronic obstructive pulmonary disease with acute exacerbation Acute Diabetic foot ulcer Acute Finger laceration Acute Hx of coronary artery disease Acute
[2018-01-17] MEDS ORDERED: FUROSEMIDE 100 MG/10 ML VIAL IVP SCH (15:00)
[2018-01-17] MEDS: FUROSEMIDE 40 MG/4 ML VIAL IVP SCH (15:45)
--- NOTE | 2018-01-17 17:45 | SOAPPROG ---
SOAP Progress Note Assessment/Plan: Assessment/Plan: 67 M with end stage COPD and FEV1 of 32% predicted, long standing severe and poorly controlled hypoxemia on baseline O2 of 8 - 10 lpm, as well as chronic RLE cellulitis admitted to [facility] 01/12 with acute onset of rigors and increasing LE pain. He was sen by Dr. Thomas in wound care clinic shortly before admission and was doing well at that time. However, at urgent care he had a WBC of 40 and was hypotensive requiring pressors. He was treated for acute on chronic cellulitis cellulitis with Ancef and Zyvox while US ruled out DVT. His oxygen requirements remain high and he desaturates with minimal activity but he has no major respiratory complaints. * Septic shock - resolved. Secondary to recurrent cellulitis. Corynebacterium in blood. Leg better, with resolved areas of erythema, but still edematous on the right. Continue abx per ID. * Hypotension- Resolved. Off Levophed. Blood pressure now fine. * COPD- he was using Dulera and duoneb 3-4 daily as an outpatient. Changed to spiriva 01/13 for better long acting muscarinic control. Increased cough with some increased dyspnea yesterday, seems better after restarting duo nebs and adding Mucinex. * Hx erythrocytosis, likely related to oxygen non-compliance. Not a current issue. HCT 35. * DVT prophylaxis: On subcu heparin * Metabolic: Glucoses normal. Glyburide held. Follow. Will continue present pulmonary therapies and oxygen. Disposition issues are being addressed. He would like to go home with home care. He is fiercely independent despite his severe pulmonary disease and other problems. He has pets at home. However, at some point he is not going to be able to live independently. He may need short-term SNF stay on discharge? Discussed the above issues with the patient. Subjective: Breathing is little bit better today, less short of breath, less cough. Objective: Vital Signs Temp Pulse Resp BP Pulse Ox 36.6 C 85 17 105/74 95 01/17/18 15:33 01/17/18 15:49 01/17/18 15:49 01/17/18 15:33 01/17/18 15:49 Laboratory Results 01/17/18 04:10 01/17/18 08:25 01/16/18 01/17/18 01/18/18 05:59 05:59 05:59 Intake Total 2257 1700 Output Total 800 1575 Balance 1457 125 PT 21.6 SEC (12.0-15.0) H 01/13/18 05:15 INR 1.87 (0.83-1.16) H 01/13/18 05:15 Physical Exam - Physical Exam General Appearance: alert, no apparent distress, obese EENT: other (Oxygen in place at 8 L L) Neck: normal inspection (Cannot rule out jugular venous distension) Respiratory: lungs clear (Anteriorly), decreased breath sounds (At bases), prolonged expiration, No rales, No rhonchi (No rhonchi with cough today, minimal central congestion) Cardiac/Chest: regular rate, rhythm (Distant heart tones) Abdomen: normal bowel sounds, non-tender, soft (Obese) Male Genitalia: other (Treviño catheter removed) Skin: normal color, warm/dry Extremities: pedal edema, swelling (Right greater than left) Neuro/Psych: no motor/sensory deficits, No cognition abnormalities ICD10 Worksheet Patient Problems: Problems Problem Status Onset Severe sepsis Acute Chronic obstructive pulmonary disease with acute exacerbation Acute Finger laceration Acute Diabetic foot ulcer Acute Anemia due to acute blood loss Acute COPD (chronic obstructive pulmonary disease) Acute Hx of coronary artery disease Acute Cellulitis Acute
[2018-01-17] MEDS: ENOXAPARIN 40 MG/0.4 ML SYR SC SCH (20:16)
[2018-01-17] MEDS: PRAVASTATIN SODIUM 10 MG TAB PO SCH (20:16)
[2018-01-18] MEDS: IPRATROPIUM/ALBUTEROL 3 ML DEYVIAL IH SCH ×4 (05:27→20:32)
[2018-01-18 05:40] LABS: PLATELET COUNT 242 10^3/uL (150-400)
[2018-01-18] MEDS: INSULIN LISPRO 100 UNIT/ML SC SCH ×3 (07:43→17:55)
[2018-01-18] MEDS: VANCOMYCIN HCL/NORMAL SALINE 250 ML IV SCH ×2 (08:47→21:06)
[2018-01-18] MEDS: FUROSEMIDE 40 MG/4 ML VIAL IVP SCH ×2 (08:48→15:29)
[2018-01-18] MEDS: FAMOTIDINE 20 MG TAB PO SCH (08:51)
[2018-01-18] MEDS: guaiFENesin 600 MG TAB.ER PO SCH ×2 (08:52→21:06)
[2018-01-18] MEDS: TIOTROPIUM INHALER 18 MCG/DOSE 5 DOSE/MDI IH SCH (09:32)
--- NOTE | 2018-01-18 09:34 | HOSPPROG ---
Hospitalist Progress Note Assessment/Plan: ASSESSMENT: 67 yo M with hx of DM with diabetic foot ulcer presenting with cellulitis, septic shock septic shock: with source presumed to be cellulitis, weaned off of pressors and remains stable. blood cx w gpr RLE cellulitis: in the setting of chronic lower extremity ulceration as well as venous stasis, appreciate ID input, blood cultures now with GPR/corynebacterium- -started on vanco (previously abx from this stay: zosyn, linezolid and ancef). Leg appears significantly improved today corynebacterium bacteremia: as above, appreciate ID GIANNI: UOP improved, creatinine stable severe copd: appears currently at baseline, continue usual meds, appreciate pulm input edema: diurese 2/2 pulm htn from severe copd 1.2 L neg overnight needs ongoing diuresis acute on chronic hypoxic respiratory failure: at baseline on 8L and initially requiring 12l but now trending down to 10L and stable repeat cxr today DM2: was on glyburide and metformin as an OP, only glyburide here but today with persistent low glucose--now improved with eating. orals dc'd on ssi a1c 6 anemia: monitoring, has been present for last year IP status Care plan reviewed w multidisciplinary care team. Subjective: case d/w dr russell. diuresed well. now amenable to SNF Objective: Vital Signs Temp Pulse Resp BP Pulse Ox 36.8 C 87 18 102/64 93 01/18/18 08:00 01/18/18 08:00 01/18/18 08:00 01/18/18 08:00 01/18/18 08:00 Laboratory Results 01/18/18 05:25 01/18/18 05:25 01/17/18 01/18/18 01/19/18 05:59 05:59 05:59 Intake Total 1700 1100 250 Output Total 1575 3100 325 Balance 125 -2000 -75 PT 21.6 SEC (12.0-15.0) H 01/13/18 05:15 INR 1.87 (0.83-1.16) H 01/13/18 05:15 - Physical Exam Constitutional: no apparent distress, appears nourished Eyes: PERRL, anicteric sclera Ears, Nose, Mouth, Throat: moist mucous membranes, hearing normal Cardiovascular: regular rate and rhythym, no murmur, rub, or gallop, edema Respiratory: no respiratory distress, no rales or rhonchi Gastrointestinal: normoactive bowel sounds, soft, non-tender abdomen Genitourinary: no bladder fullness, No nascimento in urethra Skin: warm, normal color Musculoskeletal: other (cellulitis resolved), No full muscle strength Neurologic: AAOx3 Psychiatric: interacting appropriately, not anxious ICD10 Worksheet Patient Problems: Problems Problem Status Onset Cellulitis Acute Severe sepsis Acute Anemia due to acute blood loss Acute COPD (chronic obstructive pulmonary disease) Acute Chronic obstructive pulmonary disease with acute exacerbation Acute Diabetic foot ulcer Acute Finger laceration Acute Hx of coronary artery disease Acute
--- NOTE | 2018-01-18 11:27 | PCMIDPN ---
Assessment/Plan: 1. Corynebacterium striatum sepsis secondary to right lower extremity cellulitis : Remains on vancomycin; dose reduced yesterday in the setting of high trough. Would like to stabilize his vancomycin dose before he is discharged to a long-term facility. Repeat vancomycin trough tomorrow evening, with the hopes of discharge on Sunday. Right lower extremity markedly improved. Creatinine stable. Subjective: No real complaints. Right lower extremity markedly better. Vancomycin trough quite elevated last evening; dose held, and reduced this morning to g Q 12. Some loose stool, but no abdominal pain. Objective: Vital Signs Temp Pulse Resp BP Pulse Ox 36.6 C 88 20 125/72 H 92 01/18/18 11:05 01/18/18 11:09 01/18/18 11:09 01/18/18 11:05 01/18/18 11:09 Laboratory Results 01/18/18 05:25 01/18/18 05:25 01/17/18 01/18/18 01/19/18 05:59 05:59 05:59 Intake Total 1700 1100 250 Output Total 1575 3100 1225 Balance 125 -2000 -975 - Physical Exam General Appearance: no apparent distress, obese EENT: other (Dry mucous membranes) Extremities: other (Right lower extremity still swollen compared to left, but erythema markedly improved. Some dusky discoloration noted circumferentially, but beet red erythema is no longer present. No tenderness. PICC line right upper extremity looks fine) ICD10 Worksheet Patient Problems: Problems Problem Status Onset Cellulitis Acute Severe sepsis Acute Anemia due to acute blood loss Acute COPD (chronic obstructive pulmonary disease) Acute Chronic obstructive pulmonary disease with acute exacerbation Acute Diabetic foot ulcer Acute Finger laceration Acute Hx of coronary artery disease Acute
--- NOTE | 2018-01-18 16:04 | ASMTCMCOM ---
CM Note CM Note Notes: Chart reviewed. Per his nurse, patient is now agreeable to SNF. Dr. Beard alerted and after speaking to ID they have decided to check vanco dosing and look to possible dc on Sunday.CM to follow. Plan: to SNF. [employer] [facility] [employer]. Date Signed: 01/18/2018 04:03 PM Electronically Signed By:Flor Wolff RN
--- NOTE | 2018-01-18 16:46 | SOAPPROG ---
SOAP Progress Note Assessment/Plan: Assessment/Plan: 67 M with end stage COPD and FEV1 of 32% predicted, long standing severe and poorly controlled hypoxemia on baseline O2 of 8 - 10 lpm, as well as chronic RLE cellulitis admitted to [facility] 01/12 with acute onset of rigors and increasing LE pain. He was sen by Dr. Thomas in wound care clinic shortly before admission and was doing well at that time. However, at urgent care he had a WBC of 40 and was hypotensive requiring pressors. He was treated for acute on chronic cellulitis cellulitis with Ancef and Zyvox while US ruled out DVT. His oxygen requirements remain high and he desaturates with minimal activity but he has no major respiratory complaints. * Septic shock - resolved. Secondary to recurrent cellulitis. Corynebacterium in blood. Leg better, with resolved areas of erythema, but still edematous on the right. Continue abx per ID. * Hypotension- Resolved. Off Levophed. Blood pressure now fine. * COPD- he was using Dulera and duoneb 3-4 daily as an outpatient. Changed to spiriva 01/13 for better long acting muscarinic control. Increased cough with some increased dyspnea yesterday, seems better after restarting duo nebs and adding Mucinex. * Hx erythrocytosis, likely related to oxygen non-compliance. Not a current issue. HCT 35. * DVT prophylaxis: On subcu heparin * Metabolic: Glucoses normal. Glyburide held. Follow. Will d/c Spiriva. Continue duo nebs, Dulera and oxygen. Disposition issues are being addressed. He would like to go home with home care but SNF is being arranged. I agree with this disposition. Hopefully it will be short term as he is fiercely independent despite his severe pulmonary disease and other problems. He has a dog at home. Discussed the above issues with the patient. Subjective: Feels better, less short of breath. Remains on high-flow oxygen. Right lower extremity is improving. Objective: Vital Signs Temp Pulse Resp BP Pulse Ox 36.8 C 102 H 30 H 112/65 86 L 01/18/18 15:54 01/18/18 16:00 01/18/18 16:00 01/18/18 15:54 01/18/18 16:00 Laboratory Results 01/18/18 05:25 01/18/18 05:25 01/17/18 01/18/18 01/19/18 05:59 05:59 05:59 Intake Total 1700 1100 1050 Output Total 1575 3100 2125 Balance 125 -2000 -1075 PT 21.6 SEC (12.0-15.0) H 01/13/18 05:15 INR 1.87 (0.83-1.16) H 01/13/18 05:15 Physical Exam - Physical Exam General Appearance: alert, no apparent distress, obese, other (Up in chair) EENT: PERRL/EOMI, other (Nasal cannula in place at 8-10 L) Neck: normal inspection (Large neck, difficult to assess jugular venous pressure ) Respiratory: lungs clear (Anteriorly), decreased breath sounds (At the bases), No rales, No rhonchi Cardiac/Chest: regular rate, rhythm, other (Soft systolic murmur, distant heart tones, negative gallop) Abdomen: normal bowel sounds, non-tender, soft (Overweight) Skin: warm/dry, pallor, No rash Extremities: pedal edema (2 to 3+ pedal edema bilaterally, right greater than left) Neuro/Psych: no motor/sensory deficits (Moves all extremities equally), No cognition abnormalities ICD10 Worksheet Patient Problems: Problems Problem Status Onset Cellulitis Acute Severe sepsis Acute Anemia due to acute blood loss Acute COPD (chronic obstructive pulmonary disease) Acute Chronic obstructive pulmonary disease with acute exacerbation Acute Diabetic foot ulcer Acute Finger laceration Acute Hx of coronary artery disease Acute
[2018-01-18] MEDS: ENOXAPARIN 40 MG/0.4 ML SYR SC SCH (21:06)
[2018-01-18] MEDS: PRAVASTATIN SODIUM 10 MG TAB PO SCH (21:06)
[2018-01-19] MEDS: IPRATROPIUM/ALBUTEROL 3 ML DEYVIAL IH SCH ×4 (04:56→21:07)
[2018-01-19 07:21] LABS: PLATELET COUNT 232 10^3/uL (150-400)
[2018-01-19] MEDS: INSULIN LISPRO 100 UNIT/ML SC SCH ×3 (08:00→18:22)
[2018-01-19] MEDS: VANCOMYCIN HCL/NORMAL SALINE 250 ML IV SCH ×2 (08:10→21:43)
[2018-01-19] MEDS: guaiFENesin 600 MG TAB.ER PO SCH ×2 (08:10→22:40)
[2018-01-19] MEDS: FAMOTIDINE 20 MG TAB PO SCH (08:10)
[2018-01-19] MEDS: FUROSEMIDE 40 MG/4 ML VIAL IVP SCH ×2 (08:10→16:05)
--- NOTE | 2018-01-19 14:53 | HOSPPROG ---
Hospitalist Progress Note Assessment/Plan: 67 M with end stage COPD and FEV1 of 32% predicted, long standing severe and poorly controlled hypoxemia on baseline O2 of 8 - 10 lpm, as well as chronic RLE cellulitis and diabetic foot wounds admitted to [facility] 01/12 with acute onset of rigors and increasing LE pain. He was sen by Dr. Thomas in wound care clinic shortly before admission and was doing well at that time. However, at urgent care he had a WBC of 40 and was hypotensive requiring pressors. He was treated for acute on chronic cellulitis cellulitis with Ancef and Zyvox while US ruled out DVT. His oxygen requirements remain high and he desaturates with minimal activity but he has no major respiratory complaints. # right lower extremity cellulitis complicated by septic shock and bacteremia. Patient has a history of diabetic foot ulcers and recurrent cellulitis. * Sepsis resolved, continue antibiotics per ID * Will need ongoing wound care and shelter care post hospitalization # COPD, has been using Dulera and duo nebs as an outpatient and recently changed to Spiriva for better long-acting muscarinic control. Had an increased cough in the hospital and has since been switched back to his duo nebs * Continue duo nebs * Mucinex * Appreciate Pulmonary input # chronic respiratory failure with high oxygen needs at home chronically of 8- 10 lpm. * History of previous erythrocytosis * Continue high-flow oxygen # anasarca with significant lower extremity edema likely secondary to pulmonary hypertension and severe COPD. * Add daily weights, weight today about 10 pound over his home weight per patient * Currently on Lasix 40 mg IV twice daily previously on 80 mg orally daily, Usually takes metolazone once a week, will give today. * Will adjust to oral Lasix tomorrow depending on current weight. His weight at home in November was 87 kg # diabetes, had been on glyburide will monitor sugars * Currently metformin and glyburide on hold due to hypoglycemia # acute kidney injury, urine output improved creatinine stable continue diuresis at current dose adjust to oral on discharge * Subjective: Patient new to me and chart reviewed Objective: Vital Signs Temp Pulse Resp BP Pulse Ox 36.3 C 80 22 H 107/79 90 L 01/19/18 07:22 01/19/18 11:08 01/19/18 11:08 01/19/18 07:22 01/19/18 11:08 Laboratory Results 01/19/18 07:05 01/19/18 07:05 01/18/18 01/19/18 01/20/18 05:59 05:59 05:59 Intake Total 1100 3200 120 Output Total 3100 4600 1025 Balance -2000 -1400 -905 PT 21.6 SEC (12.0-15.0) H 01/13/18 05:15 INR 1.87 (0.83-1.16) H 01/13/18 05:15 - Physical Exam Constitutional: chronically ill appearing Eyes: PERRL, EOMI Ears, Nose, Mouth, Throat: moist mucous membranes Cardiovascular: regular rate and rhythym, edema Respiratory: no respiratory distress Gastrointestinal: normoactive bowel sounds Genitourinary: no bladder fullness Skin: normal color Musculoskeletal: generalized weakness Neurologic: AAOx3 Psychiatric: interacting appropriately ICD10 Worksheet Patient Problems: Problems Problem Status Onset Severe sepsis Acute Chronic obstructive pulmonary disease with acute exacerbation Acute Finger laceration Acute Diabetic foot ulcer Acute Anemia due to acute blood loss Acute COPD (chronic obstructive pulmonary disease) Acute Hx of coronary artery disease Acute Cellulitis Acute
[2018-01-19] MEDS ORDERED: METOLAZONE 5 MG TAB PO ONE (15:02)
--- NOTE | 2018-01-19 18:31 | SOAPPROG ---
SOAP Progress Note Assessment/Plan: Assessment/Plan: 67 M with end stage COPD and FEV1 of 32% predicted, long standing severe and poorly controlled hypoxemia on baseline O2 of 8 - 10 lpm, as well as chronic RLE cellulitis admitted to [facility] 01/12 with acute onset of rigors and increasing LE pain. He was sen by Dr. Thomas in wound care clinic shortly before admission and was doing well at that time. However, at urgent care he had a WBC of 40 and was hypotensive requiring pressors. He was treated for acute on chronic cellulitis cellulitis with Ancef and Zyvox while US ruled out DVT. His oxygen requirements remain high and he desaturates with minimal activity but he has no major respiratory complaints. * Septic shock - resolved. Secondary to recurrent cellulitis. Corynebacterium in blood. Leg better, with resolved areas of erythema, but still edematous on the right. Continue abx per ID. * Hypotension- Resolved. Off Levophed. Blood pressure now fine. * COPD- he was using Dulera and duoneb 3-4 daily as an outpatient. On duo nebs and Mucinex. Pulmonary status stable. Remains on high-flow oxygen. This is his baseline. * Hx erythrocytosis, likely related to oxygen non-compliance. Not a current issue. HCT 35. * DVT prophylaxis: On subcu heparin * Metabolic: Glucoses normal. Glyburide held. Follow. Continue duo nebs, Dulera and oxygen. Disposition issues are being addressed. He would like to go home with home care but SNF is being arranged. I agree with this disposition. Hopefully it will be short term as he is fiercely independent despite his severe pulmonary disease and other problems. He has a dog at home as well. Subjective: Breathing is unchanged as are oxygen requirements. He does complain of increased weight gain. Objective: Vital Signs Temp Pulse Resp BP Pulse Ox 37.0 C 78 18 115/69 96 01/19/18 15:17 01/19/18 15:40 01/19/18 15:40 01/19/18 15:17 01/19/18 15:40 Laboratory Results 01/19/18 07:05 01/19/18 07:05 01/18/18 01/19/18 01/20/18 05:59 05:59 05:59 Intake Total 1100 3200 1170 Output Total 3100 4600 2250 Balance -2000 -1400 -1080 PT 21.6 SEC (12.0-15.0) H 01/13/18 05:15 INR 1.87 (0.83-1.16) H 01/13/18 05:15 Physical Exam - Physical Exam General Appearance: alert, no apparent distress, obese, other (Up in chair) EENT: other (Nasal oxygen in place at 8 L) Neck: normal inspection (Large neck) Respiratory: lungs clear (Anteriorly), decreased breath sounds (At bases), prolonged expiration, No rales, No rhonchi Cardiac/Chest: regular rate, rhythm, other (Distant heart tones) Abdomen: normal bowel sounds, non-tender, soft Extremities: pedal edema (Of the lower extremities bilaterally persist. Edema in part is chronic comma legs remain fairly tight.), swelling (Right-side greater than left. No significant erythema.) Neuro/Psych: no motor/sensory deficits, No cognition abnormalities ICD10 Worksheet Patient Problems: Problems Problem Status Onset Cellulitis Acute Severe sepsis Acute Anemia due to acute blood loss Acute COPD (chronic obstructive pulmonary disease) Acute Chronic obstructive pulmonary disease with acute exacerbation Acute Diabetic foot ulcer Acute Finger laceration Acute Hx of coronary artery disease Acute
[2018-01-19] MEDS: PRAVASTATIN SODIUM 10 MG TAB PO SCH (22:40)
[2018-01-19] MEDS: ENOXAPARIN 40 MG/0.4 ML SYR SC SCH (22:40)
[2018-01-20] MEDS: IPRATROPIUM/ALBUTEROL 3 ML DEYVIAL IH SCH ×2 (05:12→11:38)
[2018-01-20 05:42] LABS: PLATELET COUNT 224 10^3/uL (150-400)
[2018-01-20] MEDS ORDERED: VANCOMYCIN PHARMACY TO DOSE MISC SCH (08:00)
[2018-01-20] MEDS: INSULIN LISPRO 100 UNIT/ML SC SCH ×2 (08:04→11:58)
[2018-01-20] MEDS: FAMOTIDINE 20 MG TAB PO SCH (08:16)
[2018-01-20] MEDS: guaiFENesin 600 MG TAB.ER PO SCH (08:16)
[2018-01-20] MEDS: CALCITRIOL 0.25 MCG CAP PO SCH (08:16)
[2018-01-20] MEDS ORDERED: VANCOMYCIN HCL/NORMAL SALINE 250 ML IV SCH (10:00)
[2018-01-20] MEDS ORDERED: FUROSEMIDE 80 MG TAB PO SCH (10:00)
[2018-01-20] MEDS: FUROSEMIDE 40 MG/4 ML VIAL IVP SCH (10:27)
[2018-01-20 11:36] VITALS: BP 101/58
--- NOTE | 2018-01-20 12:35 | HOSPPROG ---
Hospitalist Progress Note Assessment/Plan: 67 M with end stage COPD and FEV1 of 32% predicted, long standing severe and poorly controlled hypoxemia on baseline O2 of 8 - 10 lpm, as well as chronic RLE cellulitis and diabetic foot wounds admitted to [facility] 01/12 with acute onset of rigors and increasing LE pain. He was sen by Dr. Thomas in wound care clinic shortly before admission and was doing well at that time. However, at urgent care he had a WBC of 40 and was hypotensive requiring pressors. He was treated for acute on chronic cellulitis cellulitis with Ancef and Zyvox while US ruled out DVT. His oxygen requirements remain high and he desaturates with minimal activity but he has no major respiratory complaints. # right lower extremity cellulitis complicated by septic shock and bacteremia. Patient has a history of diabetic foot ulcers and recurrent cellulitis. WBC slightly elevated overnight, discussed with ID. * Sepsis resolved, continue antibiotics per ID * Will need ongoing wound care and [facility] care post hospitalization # COPD, has been using Dulera and duo nebs as an outpatient and recently changed to Spiriva for better long-acting muscarinic control. Had an increased cough in the hospital and has since been switched back to his duo nebs * Continue duo nebs * Mucinex * Appreciate Pulmonary input # chronic respiratory failure with high oxygen needs at home chronically of 8- 10 lpm. * History of previous erythrocytosis * Continue high-flow oxygen # anasarca with significant lower extremity edema likely secondary to pulmonary hypertension and severe COPD. * Add daily weights, Slight weight loss overnight, * change to PO today and see if weight stable at [facility]. # diabetes, had been on glyburide will monitor sugars * Currently metformin and glyburide on hold due to hypoglycemia # acute kidney injury, urine output improved creatinine stable continue diuresis at current dose adjust to oral on discharge * Subjective: wants to go to rehab Objective: Vital Signs Temp Pulse Resp BP Pulse Ox 36.3 C 94 20 101/58 L 94 01/20/18 07:29 01/20/18 11:39 01/20/18 11:39 01/20/18 11:35 01/20/18 11:39 Laboratory Results 01/20/18 05:30 01/20/18 05:30 01/19/18 01/20/18 01/21/18 05:59 05:59 05:59 Intake Total 3200 1570 Output Total 4600 4175 300 Balance -1400 -2605 -300 PT 21.6 SEC (12.0-15.0) H 01/13/18 05:15 INR 1.87 (0.83-1.16) H 01/13/18 05:15 - Physical Exam Constitutional: no apparent distress, chronically ill appearing Respiratory: respiratory distress (at baseline) Neurologic: AAOx3 Psychiatric: interacting appropriately ICD10 Worksheet Patient Problems: Problems Problem Status Onset Severe sepsis Acute Chronic obstructive pulmonary disease with acute exacerbation Acute Finger laceration Acute Diabetic foot ulcer Acute Anemia due to acute blood loss Acute COPD (chronic obstructive pulmonary disease) Acute Hx of coronary artery disease Acute Cellulitis Acute
--- NOTE | 2018-01-20 12:38 | PDIAF ---
- Diagnosis Diagnosis: Right lower extremity cellulitis/sepsis Code Status: Full Code - Medication Management Discharge Medications: Medications to Continue on Transfer Ipratropium [Atrovent Hfa (*)] 2 puffs IH QID 11/30/15 [Last Taken 01/11/18] Mometasone/Formoterol [Dulera 200 Mcg/5 Mcg Inhaler] 2 puffs IH BID 11/30/15 [ Last Taken 01/11/18] Simvastatin [Zocor] 5 mg PO HS 11/30/15 [Last Taken 01/11/18] glipiZIDE [Glipizide] 10 mg PO BIDAC 11/30/15 [Last Taken 01/11/18] metFORMIN HCL [Glucophage 500 mg (*)] 1,000 mg PO DAILY18 11/30/15 [Last Taken 01/11/18] Calcitriol [Calcitriol (*)] 0.25 mcg PO NIXON 11/15/17 [Last Taken 01/06/18] Furosemide [Lasix 80 MG (*)] 80 mg PO DAILY 11/15/17 [Last Taken 01/11/18] Potassium Cl [Klor-Con 20 meq (*)] 20 meq PO HS 11/15/17 [Last Taken 01/11/18] Aspirin [Aspirin 81mg (*)] 81 mg PO DAILY #30 tab.chew 11/18/17 [Last Taken ] Metolazone [Zaroxolyn 5MG (*)] 5 mg PO NIXON 01/12/18 [Last Taken 01/06/18] [facility] Antibiotics: Vancomycin 1 g IV daily [facility] Antibiotic Stop Date: 01/26/18 Discharge Medications: Refer to the Discharge Home Medication list for PRN reason. PICC Care - Routine: Yes - Orders Additional Instructions: Wound care orders: Resume outpatient wound care orders and appointments when discharged. Magi Tamayo CWON - Labs/Radiology CBC w/diff Date: 01/22/18 (Fax to Dr. Scherer [phone]) CMP Date: 01/22/18 (Fax to Dr. Scherer [phone]) Vanco Trough Date and Time: Sunday, January 22 before dose. Fax to Dr. Scherer - Follow Up Care Current Providers and Referrals: NONE *PRIMARY CARE P,. [Unknown] - As per Instructions Jas Scherer MD [Medical Doctor] - (Will make patient a follow-up appointment at the [facility] for Infectious Diseases.)
--- NOTE | 2018-01-20 12:43 | PCMIDPN ---
Assessment/Plan: 1. Corynebacterium striatum sepsis secondary to right lower extremity cellulitis : Markedly improved. Continue vancomycin 1 g IV daily (dose adjusted last night) through January 26. This would be 14 days of therapy. We will have him follow up in our clinic with Dr. Scherer. Inter agency form done. 01/20/18 12:41 Subjective: Eager to be discharged to [facility]. No real complaints. Leg is markedly better. Objective: Vancomycin 1 g IV daily day 5. Stop date January 26 No fever Vital Signs Temp Pulse Resp BP Pulse Ox 36.3 C 94 20 101/58 L 94 01/20/18 07:29 01/20/18 11:39 01/20/18 11:39 01/20/18 11:35 01/20/18 11:39 Laboratory Results 01/20/18 05:30 01/20/18 05:30 01/19/18 01/20/18 01/21/18 05:59 05:59 05:59 Intake Total 3200 1570 Output Total 4600 4175 300 Balance -1400 -2605 -300 - Physical Exam General Appearance: alert, no apparent distress EENT: pharynx normal Respiratory: other (Poor inspiratory effort, diminished breath sounds) Extremities: other (Right lower extremity with very faint pinkish blanching erythema; cellulitis practically resolved. Has edema of both legs.) Abdomen: soft, distended ICD10 Worksheet Patient Problems: Problems Problem Status Onset Cellulitis Acute Severe sepsis Acute Anemia due to acute blood loss Acute COPD (chronic obstructive pulmonary disease) Acute Chronic obstructive pulmonary disease with acute exacerbation Acute Diabetic foot ulcer Acute Finger laceration Acute Hx of coronary artery disease Acute
--- NOTE | 2018-01-20 12:48 | PDIAF ---
- Diagnosis Diagnosis: Right lower extremity cellulitis/sepsis Code Status: Full Code - Medication Management Discharge Medications: Medications to Continue on Transfer Mometasone/Formoterol [Dulera 200 Mcg/5 Mcg Inhaler] 2 puffs IH BID 11/30/15 [ Last Taken 01/11/18] Simvastatin [Zocor] 5 mg PO HS 11/30/15 [Last Taken 01/11/18] metFORMIN HCL [Glucophage 500 mg (*)] 1,000 mg PO DAILY18 11/30/15 [Last Taken 01/11/18] Calcitriol [Calcitriol (*)] 0.25 mcg PO NIXON 11/15/17 [Last Taken 01/06/18] Furosemide [Lasix 80 MG (*)] 80 mg PO DAILY 11/15/17 [Last Taken 01/11/18] Potassium Cl [Klor-Con 20 meq (*)] 20 meq PO HS 11/15/17 [Last Taken 01/11/18] Aspirin [Aspirin 81mg (*)] 81 mg PO DAILY #30 tab.chew 11/18/17 [Last Taken ] Acetaminophen [Tylenol 325mg (*)] 650 mg PO Q4HRS PRN tab 01/20/18 [Last Taken Unknown] Albuterol [Proventil Neb] 3 ml IH Q4HRS PRN deyvial 01/20/18 [Last Taken Unknown] Furosemide [Lasix 40 MG (*)] 40 mg PO 1500 tab 01/20/18 [Last Taken Unknown] Ipratropium/Albuterol [Duoneb (*)] 3 ml IH QID deyvial 01/20/18 [Last Taken Unknown] Metolazone [Zaroxolyn 5MG (*)] 5 mg PO NIXON #0 01/20/18 [Last Taken 01/06/18] Vancomycin HCl/Normal Saline [Vancomycin 1 gm (Premix)] 1 gm IV DAILY@1000 bag 01/20/18 [Last Taken Unknown] Zolpidem Tartrate [Ambien 5MG (*)] 5 mg PO HS PRN tab 01/20/18 [Last Taken Unknown] guaiFENesin [Mucinex 600 MG (*)] 1,200 mg PO BID tab.er 01/20/18 [Last Taken Unknown] Mcc Antibiotics: Vancomycin 1 g IV daily Mcc Antibiotic Stop Date: 01/26/18 Discharge Medications: Refer to the Discharge Home Medication list for PRN reason. PICC Care - Routine: Yes - Orders Services needed: Registered Nurse, Certified Oracle Forms Developer, Master Bar Tender , Physical Therapy, Occupational Therapy Diet Recommendation: sodium restricted Diet Texture: Regular Texture Diet Wound Care Instructions: hydrofera blue on right foot with mepelex on top, see attached. change every 2 days Additional Instructions: Wound care orders: Resume outpatient wound care orders and appointments when discharged. Magi Tamayo CWON - Labs/Radiology CBC w/diff Date: 01/22/18 (Fax to Dr. Scherer [phone]) CMP Date: 01/22/18 (Fax to Dr. Scherer [phone]) Vanco Trough Date and Time: January 22 before dose. Fax to Dr. Scherer [phone] - Follow Up Care Current Providers and Referrals: NONE *PRIMARY CARE P,. [Unknown] - As per Instructions
--- NOTE | 2018-01-20 13:45 | GDS ---
[f rep st] DISCHARGE SUMMARY DIAGNOSES: 1. Cellulitis complicated by septic shock and bacteremia. 2. 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 3. Chronic respiratory failure with high-flow oxygen needs up to 8-10 L. 4. Severe chronic obstructive pulmonary disease with severe pulmonary hypertension. 5. Coronary artery disease status post 2 stents. 6. Type 2 diabetes. 7. Anasarca with significant lower extremity edema likely secondary to pulmonary hypertension and ch ronic respiratory failure. 8. Acute kidney injury, stable creatinine. PROCEDURES DONE: 1. Right subclavian central line. 2. Lower extremity Doppler negative for deep vein thrombosis, right lower extremity. 3. Peripherally inserted central catheter line insertion. CONSULTATIONS: Include Infectious Disease, Critical Care, General Surgery. HOSPITAL COURSE: The patient is a 67-year-old man with a history significant for severe COPD with ch ronic respiratory failure and severe pulmonary hypertension on 8-10 L/min of oxygen at baseline who p resents with increased erythema right lower extremity and septic shock. He does have a chronic diabe tic wound on his right foot, which appeared not to be the source of his cellulitis. He was admitted to the intensive care unit, treated with broad-spectrum antibiotics until blood cultures revealed Cor ynebacterium infection. He was initially on pressors and after treatment with appropriate antibiotic therapy and supportive care, his pressors were weaned off, and he was eventually transferred out of the intensive care unit. Over the course of his hospitalization, Wound Care has been addressing his right diabetic foot wound. He has continued to get IV antibiotics and has slowly improved with his c ellulitis. He continues to have fairly significant anasarca and has been responding slowly to IV Las ix, but will be transitioned onto oral Lasix at the time of discharge to be followed as an outpatient and adjusted as needed. Currently, he is on 80 mg in the morning, 40 mg at night with metolazone on ce a week. His home dose prior to admission was 80 mg of Lasix daily and metolazone once a week. Hi s dry weight is around 87 kg. Currently, he is 94 kg and will need ongoing slow diuresis as an outpa tient with close followup of his kidney function. As far as the cellulitis, that has improved nicely and will finish his course of vancomycin within the next week. CONDITION ON DISCHARGE: Good. Vital signs are stable. He has been afebrile. He still requires 8 L /min of oxygen, but he is alert. He has 2-3+ edema currently. DISCHARGE MEDICATIONS: Please see discharge medication list. FOLLOWUP: He will be discharged to senior care. Total time spent with patient on day of discharge and coordination of care is 35 minutes. /[id number]/MODL
--- NOTE | 2018-01-20 14:17 | ASMTLACE ---
LACE Length of stay for Answers: 7-13 days current admission Acuity / Level of Answers: Yes Care: Did the patient have an inpatient admission? Comorbidities - select Answers: Chronic pulmonary disease all that apply Coronary Artery Disease Diabetes (uncontrolled or controlled) Peripheral vascular disease # of Emergency department Answers: 1-2 visits in the last 6 months Social determinants Answers: History of substance abuse (ETOH, street drugs, prescription drugs, etc.) Lack of community resources and/or lack of social support (no pcp, lives alone, transportation, judy d) Score: 22 Date Signed: 01/20/2018 02:17 PM Electronically Signed By:Flor Wolff RN
--- NOTE | 2018-01-20 14:27 | ASMTCMCOM ---
CM Note CM Note Notes: Patient has been medically cleared to dc to SNF rehab. Confirmed bed available at [facility]. Final orders via allscripts. Transportation via [facility] Wheelchair van with oxygen requested. RN to call report. CM available should other needs arise. Plan: To [facility] Date Signed: 01/20/2018 02:26 PM Electronically Signed By:Flor Wolff RN
--- NOTE | 2018-01-20 14:30 | ASMTCMCOM ---
CM Note CM Note Notes: IM form signed. Date Signed: 01/20/2018 02:29 PM Electronically Signed By:Flor Wolff RN
[2018-01-20] MEDS ORDERED: FUROSEMIDE 40 MG TAB PO SCH (15:00)
--- NOTE | 2018-01-20 16:38 | ASDISCHSUM ---
Discharge Information Plan Status:SNF Medically Cleared to Leave:01/20/2018 Discharge Date:01/20/2018 02:33 PM CM D/C Disposition:[facility] Facility ADT D/C Disposition:[facility] Facility Projected Discharge Date:01/20/2018 11:00 AM Transportation at D/C:Wheelchair Van Discharge Delay Reason: Follow-Up Date:01/20/2018 11:00 AM Discharge Slot: Final Diagnosis:Septic shock, R leg cellulitis, COPD, DM Placement Information Referral Type:*[facility]itentiary/SNF Referral ID:[id number] Provider Name:[facility] Address 1:[address] Address 2: City:[place] Selection Factors: State:[place] Referral Type:Home Infusion Referral ID:[id number] Provider Name: Address 1: Phone Number: Address 2: Fax Number: City: Selection Factors: State: Patient Contact Information Contact Name:TK Relationship:Son Address: Work Phone: City: [facility] Phone: State/Zip Code: Email: Financial Information Financial Class:Medicare Advantage Plans Primary Plan Desc:[facility] [employer] Primary Plan Number:[id number] Secondary Plan Desc: Secondary Plan Number: Assessment Information LACE LACE Length of stay for Answers: 7-13 days current admission Acuity / Level of Answers: Yes Care: Did the patient have an inpatient admission? Comorbidities - select Answers: Chronic pulmonary disease all that apply Coronary Artery Disease Diabetes (uncontrolled or controlled) Peripheral vascular disease # of Emergency department Answers: 1-2 visits in the last 6 months Social determinants Answers: History of substance abuse (ETOH, street drugs, prescription drugs, etc.) Lack of community resources and/or lack of social support (no pcp, lives alone, transportation, judy d) Score: 22 Date Signed: 01/20/2018 02:17 PM Electronically Signed By:Flor Wolff RN [facility] CM Progress Note CM Note CM Note Notes: Patient reviewed in rounds. 67 Year old male admitted with sepsis and cellulitis. HX includes COPD, CAD, diabetes and non-healing wounds. He has high oxygen needs He is followed in the wound clinic by Dr. Thomas and was current with [facility]. Currently on IV antibiotics and vasopressin. His son Don's number is [phone] and is his proxy. CM to follow. Needs to be determined Plan: TBD Date Signed: 01/13/2018 03:18 PM Electronically Signed By:Flor Wolff RN [facility] CM Progress Note CM Note CM Note Notes: Therapies recommending SNF Rehab. Spoke to patient who is concerned that he might have a $50 co-payment if he goes to a SNF. I asked if I could contact [email or web address] and [email or web address] and they could research Ins benefit for SNF. He agreed-referrals sent. Patient lives alone and can't count on support from ex or son. Date Signed: 01/15/2018 03:09 PM Electronically Signed By:Ashley Martins LCSW [facility] CM Progress Note CM Note CM Note Notes: 01/17/2018 Case Management Note Discussed with Infectious Disease MD. Pt will require 2 weeks of IV vanco. PT is recommending SNF. Per [facility] Rehab copays are as follows: [facility] AARP Plan 2 Active As of 01/16/18: 0/100 SNF days have been used Co-pay: Days 1-20 = $0.00/day Days 21-51 = $160.0/day Days 52-100 = $0.00/day No Deductible OOP; $4400 - Met: $2033.44 - Will pay at 100% once OOP is met Follows Calendar Year. Discussed above with pt. Pt prefers to return home and is attempting to find a family member or friend to stay with him at d/c. At pt request faxed referral to [facility] for pricing on copays for infusion after d/c. Explained to pt that his cheapest option will be to d/c to SNF. Pt is concerned about cost of kenneling his dog. His dog is currently staying with his son. Case Mangement d/c poc: to be determined. Case Management to follow. Date Signed: 01/17/2018 11:00 AM Electronically Signed By:Yesenia Cunha RN [facility] JONATHAN Progress Note CM Note CM Note Notes: Chart reviewed. Per his nurse, patient is now agreeable to SNF. Dr. Beard alerted and after speaking to ID they have decided to check vanco dosing and look to possible dc on Sunday.CM to follow. Plan: to SNF. [employer]. Date Signed: 01/18/2018 04:03 PM Electronically Signed By:Flor Wolff RN [facility] CM Progress Note CM Note CM Note Notes: Patient has been medically cleared to dc to SNF rehab. Confirmed bed available at [facility]. Final orders via allscripts. Transportation via [facility] Wheelchair van with oxygen requested. RN to call report. CM available should other needs arise. Plan: To [facility] Date Signed: 01/20/2018 02:26 PM Electronically Signed By:Flor Wolff RN [facility] CM Progress Note CM Note CM Note Notes: IM form signed. Date Signed: 01/20/2018 02:29 PM Electronically Signed By:Flor Wolff RN Intervention Information
== END 2018-01-20 14:33 | DRG 871 ==
LOC: CED 13:22 → CEDHOLD 14:40 → F2N 15:43 → F2W 01-16 11:33
PROVIDERS: ADMIT Internal Medicine; ATTEND Internal Medicine
PROC: 05H633Z Insertion of Infusion Device into Left Subclavian Vein, Percutaneous Approach (ICD-10-PCS; principal; 2018-01-12)
PROC: 02HV33Z Insertion of Infusion Device into Superior Vena Cava, Percutaneous Approach (ICD-10-PCS; 2018-01-16)
DX: A41.89 Other specified sepsis (principal); L03.115 Cellulitis of right lower limb; R65.21 Severe sepsis with septic shock; N17.9 Acute kidney failure, unspecified; E11.621 Type 2 diabetes mellitus with foot ulcer; L97.519 Non-pressure chronic ulcer of other part of right foot with unspecified severity; R60.1 Generalized edema; J44.9 Chronic obstructive pulmonary disease, unspecified; J96.11 Chronic respiratory failure with hypoxia; I27.20 Pulmonary hypertension, unspecified; I25.10 Atherosclerotic heart disease of native coronary artery without angina pectoris; I10 Essential (primary) hypertension; Z95.5 Presence of coronary angioplasty implant and graft; Z87.891 Personal history of nicotine dependence; Z99.81 Dependence on supplemental oxygen
CPT/HCPCS: 71046-PO; 80053-PO; 82248-PO; 83605-PO; 83880-PO; 85025-PO; 93971-PO; 96365; 96366; 97110-GP; 97116-GP; 97162-GP; 97166-GO; 97530-GO; 97530-GP; 97535-GO; C1751; G8978-GP-CJ; G8979-GP-CI; G8987-GO-CL; G8988-GO-CI; J0690; J0696; J1644; J1650; J1815; J1940; J2543; J2916; J3370; J7613

== ENCOUNTER → 2018-10-02 | Outpatient (CLI) | payer OTHER | LOC: CIMAGING 09:50 | PROVIDERS: ATTEND Family Medicine | DX: R18.8 Other ascites (principal); K82.9 Disease of gallbladder, unspecified | CPT/HCPCS: 76705-PO ==